=== PATIENT | male | born 1930 | race Caucasian/White ===

== ENCOUNTER 2017-01-10 14:16 | Inpatient (IN) | payer MEDICARE, OTHER ==
[~2017-01-10] VITALS: Ht 188 cm; Wt 97.7 kg
[2017-01-10] VITALS (9 sets, daily range): BP systolic 106–151; BP diastolic 49–81; PULSE 73–93; RESP 16–20; TEMP 98.1–102.6; O2SAT 92–98
[~2017-01-10 14:16] MED LIST: AMLO5TAB22 PO; CARV12.5 PO; CIPR500T4 PO; ENAL10TA7 PO; ENOX40P SQ; FERR324T4 PO; GLIP5 PO; ISOS30 PO; LORTA5 PO; POLY255S PO; PROS5TAB2 PO; ROSU40 PO; TAMS0.4C67 PO
[2017-01-10] MEDS ORDERED: ATOR1TAB18 PO (15:57)
--- NOTE | 2017-01-10 15:57 | PD ---
HPI Chief Complaint: Respiratory Symptoms Time Seen by Provider: 15:50 Travel History International Travel<30 days: No Contact w/Intl Traveler<30days: No Traveled to known affect area: No History of Present Illness HPI The patient is a 86-year-old male who presents emergency department for cough and cold symptoms. The patient states he developed a sore throat last night and since then his symptoms have progressed. He now complains of generalized weakness, wet but nonproductive cough, mild shortness of breath, and lethargy. The patient denies any nausea, vomiting, or abdominal pain. He does complain of bruising over the anterior aspect of his abdomen from a fall last week, but denies any abdominal pain. The patient denies any dysuria, frequency, or urgency. The patient has had chills at home, however, is unsure if he has had a fever. The patient was noted to have a temperature 102.6 in the emergency department. The patient does have a history of valve replacement , unsure which valve, performed last year at [facility] and currently takes Eliquis. The patient's primary physician is Dr. Puckett. [facility] Past Medical History Hx Anticoagulant Therapy: Yes Arthritis: No Asthma: No Autoimmune Disease: No Blood Disorders: No Heart Rhythm Problems: No Cancer: No Cardiovascular Problems: Yes (htn on meds x 2 [place]) High Cholesterol: No Chest Pain: Yes (CARDIAC CATH 2004) Congestive Heart Failure: No COPD: No Cerebrovascular Accident: Yes (cva x2) Diabetes: Yes (type 2) Patient Takes Glucophage: No Diminished Hearing: No Endocrine: Yes Gastrointestinal Disorders: Yes (CONSTIPATION) GERD: No Glaucoma: No Genitourinary: Yes (BPH) Hepatitis: No Hiatal Hernia: Yes Hypertension: Yes Immune Disorder: No Implanted Vascular Access Dvce: Yes Medical other: No Musculoskeletal: Yes (ARTHRITIS) Neurologic: Yes (STROKE HX) Psychiatric: No Reproductive: No Respiratory: No Immunizations Current: Yes Myocardial Infarction: Yes Thyroid Disease: Yes Ulcer: No Past Surgical History Abdominal Surgery: Yes (COLON RESECT (COLONOSCOPY PERF)) AICD: No Body Medical Devices: VENA CAVA FILTER Cardiac Surgery: Yes (VENA CAVA FILTER, VALVE REPLACEMENT ) Ear Surgery: Yes (LEFT MASTOIDECTOMY) Endocrine Surgery: No Eye Surgery: Yes (BRIANDA. CATARACT EXTRACT) Genitourinary Surgery: Yes (GREENLIGHT LASER PROSTATE) Gynecologic Surgery: No Joint Replacement: Yes (LEFT KNEE) Neurologic Surgery: Yes (LUMBAR DISCECTOMY X2) Oral Surgery: No Pacemaker: No Thoracic Surgery: No Other Surgery: Yes (LEFT CAROTID ENDARTERECTOMY) Social History Alcohol Use: No Tobacco Use: No Substance Use: No Allergies-Medications (Allergen,Severity, Reaction): Coded Allergies: Iodine (Verified Allergy, Unknown, 01/10/17) Sulfa (Verified Allergy, Unknown, UNKNOWN, 01/10/17) Reported Meds & Prescriptions Reported Meds & Active Scripts Active Reported Tamsulosin (Tamsulosin HCl) 0.4 Mg Cap 0.4 Mg PO HS Metoprolol Tartrate 25 Mg Tab 25 Mg PO BID Isosorbide Mononitrate ER (Isosorbide Mononitrate) 30 Mg Yvonne 30 Mg PO DAILY Hydralazine (Hydralazine HCl) 25 Mg Tab 25 Mg PO BID Take with a meal Glipizide 5 Mg Tab 5 Mg PO DAILY Take 30 minutes before a meal Finasteride 5 Mg Tab 5 Mg PO DAILY Do not crush. Eliquis (Apixaban) 5 Mg Tab 5 Mg PO BID Aspirin 81 Mg Tabdr 81 Mg PO DAILY Atorvastatin (Atorvastatin Calcium) 80 Mg Tab 80 Mg PO HS Review of Systems Except as stated in HPI: all other systems reviewed are Neg General / Constitutional: Positive: Fever, Chills HENT: Positive: Sore Throat, Congestion Cardiovascular: No: Chest Pain or Discomfort Respiratory: Positive: Cough, Shortness of Breath Gastrointestinal: No: Nausea, Vomiting, Abdominal Pain Genitourinary: No: Urgency, Frequency, Dysuria Musculoskeletal: Positive: Weakness, No: Myalgias, Arthralgias Skin: No Rash Physical Exam Narrative GENERAL: 86-year-old male who is hard of hearing, but in no acute respiratory distress. SKIN: Warm and dry. HEAD: Atraumatic. Normocephalic. EYES: Pupils equal and round. No scleral icterus. No injection or drainage. ENT: No nasal bleeding or discharge. Oropharynx reveals minimal erythema, no exudate. Hearing aids noted. Upper dentures noted. NECK: Trachea midline. No JVD. CARDIOVASCULAR: Regular rate and rhythm. No murmur appreciated. RESPIRATORY: No accessory muscle use. Rhonchi in the left base noted. GASTROINTESTINAL: Abdomen soft, old appearing bruising over the anterior left aspect of the abdomen, but no rebound tenderness, guarding, or rigidity. MUSCULOSKELETAL: No obvious deformities. No clubbing. No cyanosis. Trace pitting edema bilaterally. Back: No CVA tenderness. NEUROLOGICAL: Awake and alert. No obvious cranial nerve deficits. Motor grossly within normal limits. Normal speech. PSYCHIATRIC: Appropriate mood and affect; insight and judgment normal. Data Data Last Documented VS Vital Signs Date Time Temp Pulse Resp B/P Pulse Ox O2 Delivery O2 Flow Rate FiO2 01/10/17 18:28 96 21 01/10/17 17:08 99.7 73 18 149/53 Room Air Orders Electrocardiogram (01/10/17 15:50) Complete Blood Count With Diff (01/10/17 15:50) Comprehensive Metabolic Panel (01/10/17 15:50) Prothrombin Time / Inr (Pt) (01/10/17 15:50) Act Partial Throm Time (Ptt) (01/10/17 15:50) Lactic Acid Sepsis Protocol (01/10/17 15:50) Magnesium (Mg) (01/10/17 15:50) Urinalysis - C+S If Indicated (01/10/17 15:50) Influenzae A/B Antigen (01/10/17 15:50) Blood Culture (01/10/17 15:50) Chest, Single Ap (01/10/17 15:50) Blood Glucose (01/10/17 15:50) Ecg Monitoring (01/10/17 15:50) Iv Access Insert/Monitor (01/10/17 15:50) Oximetry (01/10/17 15:50) Oxygen Administration (01/10/17 15:50) Acetaminophen (Tylenol) (01/10/17 16:00) Sodium Chlorid 0.9% 500 Ml Inj (Ns 500 M (01/10/17 16:00) B-Type Natriuretic Peptide (01/10/17 15:50) Ct Abd/Pel W/O Iv Contrast (01/10/17 ) Levofloxacin 500 Mg Premix Inj (Levaquin (01/10/17 18:30) Albuterol-Ipratropium Neb (Duoneb Neb) (01/10/17 18:30) Labs Laboratory Tests Test 01/10/17 13:45 White Blood Count 11.1 TH/MM3 Red Blood Count 4.35 MIL/MM3 Hemoglobin 12.5 GM/DL Hematocrit 38.5 % Mean Corpuscular Volume 88.5 FL Mean Corpuscular Hemoglobin 28.8 PG Mean Corpuscular Hemoglobin 32.5 % Concent Red Cell Distribution Width 16.5 % Platelet Count 139 TH/MM3 Mean Platelet Volume 8.1 FL Neutrophils (%) (Auto) 83.1 % Lymphocytes (%) (Auto) 8.5 % Monocytes (%) (Auto) 8.1 % Eosinophils (%) (Auto) 0.1 % Basophils (%) (Auto) 0.2 % Neutrophils # (Auto) 9.3 TH/MM3 Lymphocytes # (Auto) 0.9 TH/MM3 Monocytes # (Auto) 0.9 TH/MM3 Eosinophils # (Auto) 0.0 TH/MM3 Basophils # (Auto) 0.0 TH/MM3 CBC Comment DIFF FINAL Differential Comment Prothrombin Time 12.0 SEC Prothromb Time International 1.1 RATIO Ratio Activated Partial 27.1 SEC Thromboplast Time Urine Collection Type CATH Urine Color YELLOW Urine Turbidity CLEAR Urine pH 6.0 Urine Specific [place] 1.016 Urine Protein 100 mg/dL Urine Glucose (UA) 100 mg/dL Urine Ketones NEG mg/dL Urine Occult Blood NEG Urine Nitrite NEG Urine Bilirubin NEG Urine Leukocyte Esterase NEG Urine Squamous Epithelial 0-5 /hpf Cells Microscopic Urinalysis Comment CULT NOT INDICATED Sodium Level 142 MEQ/L Potassium Level 4.0 MEQ/L Chloride Level 107 MEQ/L Carbon Dioxide Level 25.1 MEQ/L Anion Gap 10 MEQ/L Blood Urea Nitrogen 33 MG/DL Creatinine 1.70 MG/DL Estimat Glomerular Filtration 38 ML/MIN Rate Random Glucose 108 MG/DL Lactic Acid Level 1.6 mmol/L Calcium Level 8.9 MG/DL Magnesium Level 1.8 MG/DL Total Bilirubin 0.7 MG/DL Aspartate Amino Transf 24 U/L (AST/SGOT) Alanine Aminotransferase 31 U/L (ALT/SGPT) Alkaline Phosphatase 60 U/L B-Type Natriuretic Peptide 518 PG/ML Total Protein 7.4 GM/DL Albumin 3.8 GM/DL MDM Medical Decision Making Medical Screen Exam Complete: Yes Emergency Medical Condition: Yes Medical Record Reviewed: Yes Interpretation(s) Last Impressions Chest X-Ray 01/10/17 1550 Signed Impressions: Service Date/Time: Tuesday, January 10, 2017 16:19 - CONCLUSION: 1. Mild basilar airspace disease most characteristic of atelectasis. No focal dense consolidation. Elevated right hemidiaphragm similar to 2013. Cardiomegaly. Manuel Gomez MD Date/Time Procedure Status Source Growth 01/10/17 13:45 Aerobic Blood Culture Received Blood Peripheral Pending 01/10/17 13:45 Anaerobic Blood Culture Received Blood Peripheral Pending 01/10/17 13:45 Influenza Types A,B Antigen (CLIFF) - Final Complete Nasal Aspirate NEGATIVE FOR FLU A AND B ANTIGEN.... 01/10/17 14:02 Aerobic Blood Culture Received Blood Peripheral Pending 01/10/17 14:02 Anaerobic Blood Culture Received Blood Peripheral Pending Laboratory Tests Test 01/10/17 13:45 White Blood Count 11.1 TH/MM3 Red Blood Count 4.35 MIL/MM3 Hemoglobin 12.5 GM/DL Hematocrit 38.5 % Mean Corpuscular Volume 88.5 FL Mean Corpuscular Hemoglobin 28.8 PG Mean Corpuscular Hemoglobin 32.5 % Concent Red Cell Distribution Width 16.5 % Platelet Count 139 TH/MM3 Mean Platelet Volume 8.1 FL Neutrophils (%) (Auto) 83.1 % Lymphocytes (%) (Auto) 8.5 % Monocytes (%) (Auto) 8.1 % Eosinophils (%) (Auto) 0.1 % Basophils (%) (Auto) 0.2 % Neutrophils # (Auto) 9.3 TH/MM3 Lymphocytes # (Auto) 0.9 TH/MM3 Monocytes # (Auto) 0.9 TH/MM3 Eosinophils # (Auto) 0.0 TH/MM3 Basophils # (Auto) 0.0 TH/MM3 CBC Comment DIFF FINAL Differential Comment Prothrombin Time 12.0 SEC Prothromb Time International 1.1 RATIO Ratio Activated Partial 27.1 SEC Thromboplast Time Urine Collection Type CATH Urine Color YELLOW Urine Turbidity CLEAR Urine pH 6.0 Urine Specific [place] 1.016 Urine Protein 100 mg/dL Urine Glucose (UA) 100 mg/dL Urine Ketones NEG mg/dL Urine Occult Blood NEG Urine Nitrite NEG Urine Bilirubin NEG Urine Leukocyte Esterase NEG Urine Squamous Epithelial 0-5 /hpf Cells Microscopic Urinalysis Comment CULT NOT INDICATED Sodium Level 142 MEQ/L Potassium Level 4.0 MEQ/L Chloride Level 107 MEQ/L Carbon Dioxide Level 25.1 MEQ/L Anion Gap 10 MEQ/L Blood Urea Nitrogen 33 MG/DL Creatinine 1.70 MG/DL Estimat Glomerular Filtration 38 ML/MIN Rate Random Glucose 108 MG/DL Lactic Acid Level 1.6 mmol/L Calcium Level 8.9 MG/DL Magnesium Level 1.8 MG/DL Total Bilirubin 0.7 MG/DL Aspartate Amino Transf 24 U/L (AST/SGOT) Alanine Aminotransferase 31 U/L (ALT/SGPT) Alkaline Phosphatase 60 U/L B-Type Natriuretic Peptide 518 PG/ML Total Protein 7.4 GM/DL Albumin 3.8 GM/DL Last Impressions Chest X-Ray 01/10/17 1550 Signed Impressions: Service Date/Time: Tuesday, January 10, 2017 16:19 - CONCLUSION: 1. Mild basilar airspace disease most characteristic of atelectasis. No focal dense consolidation. Elevated right hemidiaphragm similar to 2013. Cardiomegaly. Manuel Gomez MD Abdomen/Pelvis CT 01/10/17 0000 Signed Impressions: Service Date/Time: Tuesday, January 10, 2017 16:50 - CONCLUSION: 1. No acute traumatic injury identified within the abdomen and pelvis. Previous ventral hernia repair and stent placement in the ascending aorta. 2. Bruising in the anterior abdominal wall. 3. Patchy basilar airspace disease in the lungs. Manuel Gomez MD Differential Diagnosis Differential diagnosis includes sepsis, pneumonia, influenza, viral syndrome, pyelonephritis, complicated UTI, acalculous cholecystitis. Narrative Course IV was established, labs are drawn and sent, and the patient was placed on cardiac telemetry monitoring and continuous pulse oximetry monitoring. EKG was ordered and interpreted. Chest x-ray was ordered. Lactic acid blood culture were sent to lab. The patient was administered IV fluids. The patient was also administered Tylenol 650 mg orally for an oral temperature of 102.6. The patient's creatinine is 1.7, however, when labs are compared, appears at baseline. Lactic acid is normal 1.6. BNP is mildly elevated at 518, however, patient does have chronic renal failure. Chest x-ray reveals atelectasis but no acute infiltrate. UA is negative for infection. Influenza screen is negative. The patient's temperature came down to 99.7 [address] was administered. [address] of the abdomen and pelvis was ordered to evaluate for possible underlying abscess and/or acute cholecystitis. Patient's white count is minimally elevated 11.1. CT reveals bibasilar patchy densities, may be early pneumonia. Patient's oxygen level was 92% on room air with mildly elevated white count a normal creatinine. As the patient is 86 with bibasilar pneumonia and hypoxia, patient will be admitted. [facility]. The patient was administered Levaquin 500 milligrams intravenously and duo nebs. I do discussion with the patient and family at bedside who are comfortable with this plan of care and disposition. Physician Communication Physician Communication [facility] were paged for admission. I discussed the patient Dr. Levi who agrees with admission. Diagnosis Primary Impression: Pneumonia Qualified Code: J18.9 - Pneumonia of both lower lobes due to infectious organism Admitting Information Admitting Physician Requests: Admit Condition: Stable Jeremiah Clemons MD Jan 10, 2017 15:57
[2017-01-10] MEDS ORDERED: GLIP5TAB8 PO (15:58)
[2017-01-10] MEDS ORDERED: ISOS30TA3 PO (15:58)
[2017-01-10] MEDS ORDERED: HYDR25TA35 PO (15:58)
[2017-01-10] MEDS ORDERED: TAMS0.4C4 PO (15:58)
[2017-01-10] MEDS ORDERED: APIX5TAB PO (15:58)
[2017-01-10] MEDS ORDERED: METO25TA3 PO (15:58)
[2017-01-10] MEDS ORDERED: ASPI1TAB69 PO (15:58)
[2017-01-10] MEDS ORDERED: FINA5TAB2 PO (15:58)
[2017-01-10] MEDS ORDERED: ACETAMINOPHEN 325 MG TAB PO ONE (16:00)
[2017-01-10] MEDS ORDERED: SODIUM CHLORID 0.9% 500 ML INJ 500 ML IV ONE (16:00)
[2017-01-10 16:19] LABS: AUTOMATED NEUTROPHIL # 9.3 TH/MM3 (1.8-7.7); BASOPHIL % 0.2 % (0.0-2.0); EOSINOPHIL % 0.1 % (0.0-4.0); HEMATOCRIT 38.5 % (39.0-51.0); LYMPH % 8.5 % (9.0-44.0); LYMPHOCYTE # 0.9 TH/MM3 (1.0-4.8); MEAN CELL VOLUME 88.5 FL (80.0-100.0); MEAN CORPUSCULAR HEMOGLOBIN 28.8 PG (27.0-34.0); MEAN CORPUSCULAR HGB CONC 32.5 % (32.0-36.0); MONO % 8.1 % (0.0-8.0); NEUT % 83.1 % (16.0-70.0); PLATELET COUNT 139 TH/MM3 (150-450); RED BLOOD COUNT 4.35 MIL/MM3 (4.50-5.90); RED CELL DISTRIBUTION WIDTH 16.5 % (11.6-17.2); WHITE BLOOD COUNT 11.1 TH/MM3 (4.0-11.0)
[2017-01-10 16:22] LABS: HEMO FLAGS DIFF FINAL
[2017-01-10 16:23] LABS: BLOOD, URINE NEG (NEG); CHLORIDE 107 MEQ/L (98-107); GLUCOSE,URINE 100 mg/dL (NEG); KETONE, URINE NEG (NEG); NITRITE,URINE NEG (NEG); SODIUM (NA) 142 MEQ/L (136-145)
[2017-01-10 16:25] LABS: METHOD OF COLLECTION CATH; URINE COLOR YELLOW (YELLW/STRAW)
[2017-01-10 16:27] LABS: ANION GAP 10 MEQ/L (5-15); APTT (PATIENT) 27.1 SEC (24.3-30.1); BICARBONATE 25.1 MEQ/L (21.0-32.0); BLOOD UREA NITROGEN 33 MG/DL (7-18); INTERNATIONAL NORMALIZED RATIO 1.1 RATIO; MAGNESIUM 1.8 MG/DL (1.5-2.5)
[2017-01-10 16:30] LABS: ALT (GPT) 31 U/L (12-78); AST (GOT) 24 U/L (15-37); GLOMERULAR FILTRATION RATE 38 ML/MIN (>89)
[2017-01-10 16:31] LABS: COMMENT (UR) CULT NOT INDICATED; CULTURE IF INDICATED CULT NOT INDICATED; SQUAMOUS EPITHELIAL CELL URINE 0-5 /hpf (0-5)
[2017-01-10 16:32] LABS: TOTAL BILIRUBIN ADULT 0.7 MG/DL (0.2-1.0)
[2017-01-10 16:33] LABS: ALKALINE PHOSPHATASE 60 U/L (45-117)
--- NOTE | 2017-01-10 17:00 | RADHPO ---
EXAM DATE/TIME: 01/10/2017 16:19 [facility] COMPARISON: CHEST PA & LAT, January 23, 2013, 10:21. INDICATIONS : Fever. Cough. MEDICAL HISTORY : None. SURGICAL HISTORY : None. ENCOUNTER: Initial ACUITY: 3 days PAIN SCORE: 6/10 LOCATION: Bilateral chest FINDINGS: A single view of the chest demonstrates mild basilar airspace disease. No effusion or pneumothorax. C ardiomegaly with stent overlying the heart, probably in the proximal aorta. CONCLUSION: 1. Mild basilar airspace disease most characteristic of atelectasis. No focal dense consolidation. El evated right hemidiaphragm similar to 2013. Cardiomegaly. Manuel Gomez MD on January 10, 2017 at 16:56 Board Certified Radiologist. This report was verified electronically.
--- NOTE | 2017-01-10 18:15 | RADHPO ---
EXAM DATE/TIME: 01/10/2017 16:50 [facility] COMPARISON: No previous studies available for comparison. INDICATIONS : Anterior abdominal bruising status post fall one week ago. ORAL CONTRAST: No oral contrast ingested. RADIATION DOSE: 17.19 CTDIvol (mGy) MEDICAL HISTORY : Stroke. Hypertension. Diabetes mellitus type 2. SURGICAL HISTORY : IVC Filter placement. Colon resection.lumbar discectomy ENCOUNTER: Initial ACUITY: 1 day PAIN SCALE: 0/10 LOCATION: Bilateral abdomen TECHNIQUE: Volumetric scanning of the abdomen and pelvis was performed. Using automated exposure control and ad justment of the mA and/or kV according to patient size, radiation dose was kept as low as reasonably achievable to obtain optimal diagnostic quality images. FINDINGS: There is patchy basilar air space disease in the lungs. No acute findings in the liver, spleen, adrenals, kidneys or pancreas. Calcified gallstone in gallbla dder. There is previous ventral hernia repair with mesh along the anterior abdominal wall. There is some mi ld bruising of the left anterior abdominal wall. Colonic diverticula noted without diverticulitis. No acute bony abnormalities. CONCLUSION: 1. No acute traumatic injury identified within the abdomen and pelvis. Previous ventral hernia repair and stent placement in the ascending aorta. 2. Bruising in the anterior abdominal wall. 3. Patchy basilar airspace disease in the lungs. Manuel Gomez MD on January 10, 2017 at 18:09 Board Certified Radiologist. This report was verified electronically.
[2017-01-10] MEDS ORDERED: LEVOFLOXACIN 500 MG PREMIX INJ 100 ML IV ONE (18:30)
[2017-01-10] MEDS ORDERED: RESP: ALBUTEROL 2.5 MG/IPRATROPIUM 0.5 MG NEB (SCH) NEB ONE (18:30)
[2017-01-10] MEDS ORDERED: ONDANSETRON HCL 4 MG/2 ML VIAL IV PRN (19:00)
[2017-01-10] MEDS ORDERED: ACETAMINOPHEN 325 MG TAB PO PRN (19:00)
[2017-01-10] MEDS ORDERED: SODIUM CHLORIDE 0.9% FLUSH 5 ML FLUSH IVF PRN (19:00)
[2017-01-10] MEDS ORDERED: ACETAMINOPHEN 650 MG SUPP PR PRN (19:00)
[2017-01-10] MEDS: RESP: ALBUTEROL 2.5 MG/IPRATROPIUM 0.5 MG NEB (SCH) NEB (20:31)
[2017-01-10] MEDS: SODIUM CHLORIDE 0.9% FLUSH 5 ML FLUSH IVF SCH (20:58)
[2017-01-11] VITALS: BP 131/62; PULSE 77; RESP 20; TEMP 99.1; O2SAT 97
[2017-01-11 06:48] LABS: POTASSIUM 3.9 MEQ/L (3.5-5.1)
[2017-01-11 06:50] LABS: AUTOMATED NEUTROPHIL # 7.4 TH/MM3 (1.8-7.7); BASOPHIL % 0.3 % (0.0-2.0); EOSINOPHIL % 0.2 % (0.0-4.0); HEMATOCRIT 30.8 % (39.0-51.0); HEMO FLAGS DIFF FINAL; LYMPH % 13.2 % (9.0-44.0); LYMPHOCYTE # 1.3 TH/MM3 (1.0-4.8); MEAN CELL VOLUME 87.5 FL (80.0-100.0); MEAN CORPUSCULAR HEMOGLOBIN 28.7 PG (27.0-34.0); MEAN CORPUSCULAR HGB CONC 32.8 % (32.0-36.0); MONO % 9.2 % (0.0-8.0); NEUT % 77.1 % (16.0-70.0); PLATELET COUNT 103 TH/MM3 (150-450); RED BLOOD COUNT 3.52 MIL/MM3 (4.50-5.90); RED CELL DISTRIBUTION WIDTH 16.4 % (11.6-17.2); WHITE BLOOD COUNT 9.6 TH/MM3 (4.0-11.0)
[2017-01-11 07:09] LABS: BICARBONATE 23.6 MEQ/L (21.0-32.0)
[2017-01-11] MEDS: RESP: ALBUTEROL 2.5 MG/IPRATROPIUM 0.5 MG NEB (SCH) NEB ×2 (07:26→11:15)
[2017-01-11 07:27] VITALS: O2SAT 93
[2017-01-11 08:00] VITALS: BP 138/77; PULSE 102; RESP 20; TEMP 98.9; O2SAT 95
[2017-01-11] MEDS ORDERED: GLUCAGON 1 MG/ML VIAL OTHER PRN (08:30)
[2017-01-11] MEDS ORDERED: DEXTROSE 50% IN WATER 50 ML VIAL(D50) IV PUSH PRN (08:30)
[2017-01-11] MEDS ORDERED: FINASTERIDE 5 MG TAB PO SCH (09:00)
[2017-01-11] MEDS ORDERED: hydrALAZINE HCL 25 MG TAB PO SCH (09:00)
[2017-01-11] MEDS ORDERED: ISOSORBIDE MONONITRATE 30 MG TAB PO SCH (09:00)
[2017-01-11] MEDS ORDERED: METOPROLOL TARTRATE 25 MG TAB PO SCH (09:00)
[2017-01-11] MEDS ORDERED: glipiZIDE 5 MG TAB PO SCH (09:00)
[2017-01-11] MEDS ORDERED: APIXABAN 5 MG TABLET PO SCH (09:00)
[2017-01-11] MEDS ORDERED: ASPIRIN EC 81 MG TABEC PO SCH (09:00)
[2017-01-11] MEDS: SODIUM CHLORIDE 0.9% FLUSH 5 ML FLUSH IVF SCH (09:04)
--- NOTE | 2017-01-11 10:20 | HHI.HP ---
HPI Service [facility] Primary Care Physician Pablo Brian MD Admission Diagnosis bibasilar pneumonia, hypoxia, febrile illness, CKD Diagnoses: Travel History International Travel<30 Days: No Contact w/Intl Traveler <30 Da: No Traveled to Known Affected Are: No History of Present Illness This is a pleasant 86-year-old male who presented to the ER last night complaining of a four-day history of sore throat associated with nonproductive cough, mild dyspnea. He also complaining of generalized weakness last night. The patient was noted to have a fever of 102.6 in the emergency department. The patient also noted that he had fallen about a week ago and had some bruising on his abdomen. Abdominal CT scan in the emergency department did not reveal any acute abnormalities however he did have bibasilar consolidations versus atelectasis seen on chest x-ray an abdominal CT scan. Thus the emergency department physician requested that we observe the patient for community-acquired pneumonia. This morning the patient states that his sore throat has resolved. He still has a dry cough but it is improving. He has had no further fevers. He denies dyspnea. He states he normally ambulates with a cane. He would like to go home today. He states his children are in town for the races and he would like to visit with them while they are here. Review of Systems Except as stated in HPI: all other systems reviewed are Neg Past Family Social History Past Medical History Hypertension Coronary artery disease status post myocardial infarction and bypass surgery 2 BPH status post TURP back to mi Peripheral vascular disease status post carotid endarterectomy Osteoarthritis status post knee replacement Type 2 diabetes Chronic kidney disease History of valve replacement in the past year the patient is unsure which valve History of CVA 2 Chronic hyponatremia Reported Medications Allergies Coded Allergies Type Severity Reaction Last Updated Verified Iodine Allergy Unknown 01/10/17 Yes Sulfa Allergy Unknown UNKNOWN 01/10/17 Yes Active Scripts Medications Dose Route/Sig Days Date Category Dose Instructions Tamsulosin (Tamsulosin HCl) 0.4 Mg Cap 0.4 Mg PO HS 01/10/17 Reported Metoprolol Tartrate 25 Mg Tab 25 Mg PO BID 2/19/17 Reported Isosorbide Mononitrate ER (Isosorbide Mononitrate) 30 Mg Yvonne 30 Mg PO DAILY 01/10/17 Reported Hydralazine (Hydralazine HCl) 25 Mg Tab 25 Mg PO BID 01/10/17 Reported Take with a meal Glipizide 5 Mg Tab 5 Mg PO DAILY 01/10/17 Reported Take 30 minutes before a meal Finasteride 5 Mg Tab 5 Mg PO DAILY 01/10/17 Reported Do not crush. Eliquis (Apixaban) 5 Mg Tab 5 Mg PO BID 01/10/17 Reported Aspirin 81 Mg Tabdr 81 Mg PO DAILY 01/10/17 Reported Atorvastatin (Atorvastatin Calcium) 80 Mg Tab 80 Mg PO HS 01/10/17 Reported Allergies: Coded Allergies: Iodine (Verified Allergy, Unknown, 01/10/17) Sulfa (Verified Allergy, Unknown, UNKNOWN, 01/10/17) Family History Reviewed and noncontributory Social History History of tobaccoism quit 40 years ago. Physical Exam Vital Signs Vital Signs Date Time Temp Pulse Resp B/P Pulse Ox O2 Delivery O2 Flow Rate FiO2 01/11/17 08:00 98.9 102 20 138/77 95 01/11/17 07:27 93 21 01/11/17 00:00 99.1 77 20 131/62 97 01/10/17 21:00 98.1 93 20 123/62 94 01/10/17 20:30 97 21 01/10/17 19:32 18 97 Room Air 01/10/17 19:32 98.1 92 18 112/68 97 Room Air 01/10/17 18:52 78 18 106/49 93 Room Air 01/10/17 18:28 96 21 01/10/17 17:08 99.7 73 18 149/53 92 Room Air 01/10/17 16:59 98 Room Air 01/10/17 15:53 98 Room Air 01/10/17 15:48 102.6 84 18 146/81 98 Room Air 01/10/17 14:29 99.8 78 16 151/61 94 Physical Exam GENERAL: Well-nourished, well-developed elderly male patient. SKIN: Warm and dry. HEAD: Normocephalic. EYES: No scleral icterus. No injection or drainage. NECK: Supple, trachea midline. No JVD or lymphadenopathy. CARDIOVASCULAR: Regular rate and rhythm without murmurs, gallops, or rubs. RESPIRATORY: Breath sounds equal and clear to auscultation bilaterally. No accessory muscle use on room air. GASTROINTESTINAL: Bowel sounds positive. Abdomen soft, non-tender, nondistended. EXTREMITIES: Trace pedal edema. NEUROLOGICAL: Awake, alert, and oriented x 3. Non-focal. Laboratory Laboratory Tests Test 01/10/17 01/11/17 13:45 05:35 White Blood Count 11.1 9.6 Red Blood Count 4.35 3.52 Hemoglobin 12.5 10.1 Hematocrit 38.5 30.8 Mean Corpuscular Volume 88.5 87.5 Mean Corpuscular Hemoglobin 28.8 28.7 Mean Corpuscular Hemoglobin 32.5 32.8 Concent Red Cell Distribution Width 16.5 16.4 Platelet Count 139 103 Mean Platelet Volume 8.1 7.8 Neutrophils (%) (Auto) 83.1 77.1 Lymphocytes (%) (Auto) 8.5 13.2 Monocytes (%) (Auto) 8.1 9.2 Eosinophils (%) (Auto) 0.1 0.2 Basophils (%) (Auto) 0.2 0.3 Neutrophils # (Auto) 9.3 7.4 Lymphocytes # (Auto) 0.9 1.3 Monocytes # (Auto) 0.9 0.9 Eosinophils # (Auto) 0.0 0.0 Basophils # (Auto) 0.0 0.0 CBC Comment DIFF FINAL DIFF FINAL Differential Comment Prothrombin Time 12.0 Prothromb Time International 1.1 Ratio Activated Partial 27.1 Thromboplast Time Urine Collection Type CATH Urine Color YELLOW Urine Turbidity CLEAR Urine pH 6.0 Urine Specific [place] 1.016 Urine Protein 100 Urine Glucose (UA) 100 Urine Ketones NEG Urine Occult Blood NEG Urine Nitrite NEG Urine Bilirubin NEG Urine Leukocyte Esterase NEG Urine Squamous Epithelial 0-5 Cells Microscopic Urinalysis Comment CULT NOT INDICATED Sodium Level 142 142 Potassium Level 4.0 3.9 Chloride Level 107 107 Carbon Dioxide Level 25.1 23.6 Anion Gap 10 11 Blood Urea Nitrogen 33 32 Creatinine 1.70 1.50 Estimat Glomerular Filtration 38 44 Rate Random Glucose 108 93 Lactic Acid Level 1.6 Calcium Level 8.9 8.0 Magnesium Level 1.8 Total Bilirubin 0.7 Aspartate Amino Transf 24 (AST/SGOT) Alanine Aminotransferase 31 (ALT/SGPT) Alkaline Phosphatase 60 B-Type Natriuretic Peptide 518 Total Protein 7.4 Albumin 3.8 Date/Time Procedure Status Source Growth 01/10/17 14:02 Aerobic Blood Culture Received Blood Peripheral Pending 01/10/17 14:02 Anaerobic Blood Culture Received Blood Peripheral Pending 01/10/17 13:45 Influenza Types A,B Antigen (CLIFF) - Final Complete Nasal Aspirate NEGATIVE FOR FLU A AND B ANTIGEN.... Result Diagram: 01/11/1753401/11/17534 Assessment and Plan Problem List: (1) Pneumonia ICD Code: J18.9 Status: Acute Assessment and Plan -Bibasilar community-acquired pneumonia versus atelectasis. Patient has had dry cough and did have one fever last night emergency department along with a mild leukocytosis. He has been observed overnight and started on Levaquin. He states that he is feeling much better this morning. No hypoxemia. We will obtain a physical therapy evaluation and if he is ambulating well he may be discharged home on oral Levaquin with follow-up with his PCP this week. His other chronic medical conditions below seems stable and he will continue on his home medications: Hypertension Coronary artery disease status post myocardial infarction and bypass surgery 2 BPH status post TURP back to mi Peripheral vascular disease status post carotid endarterectomy Osteoarthritis status post knee replacement Type 2 diabetes Chronic kidney disease History of valve replacement in the past year the patient is unsure which valve History of CVA 2 Chronic hyponatremia Problem Qualifiers (1) Pneumonia: Qualified Code: J18.9 - Pneumonia of both lower lobes due to infectious organism Theresa Levi MD Jan 11, 2017 10:20
[2017-01-11] MEDS ORDERED: LEVO500T3 PO (10:22)
[2017-01-11] MEDS ORDERED: INSULIN ASPART SUPPLEMENTAL SCALE SQ SCH (11:00)
--- NOTE | 2017-01-11 14:32 | EKG ---
Date Performed: 01/10/2017 Time Performed: 16:00:46 PTAGE: 86 years EKG: Sinus rhythm . Leftward axis Inferior infarct - age undetermined Lateral ST-T changes may be due to myocardial isc hemia Abnormal ECG PREVIOUS TRACING : 09/30/2015 08.58 DOCTOR: Teddy Raya Interpretating Date/Time 01/11/2017 14:28:37
[2017-01-11] MEDS ORDERED: LEVOFLOXACIN 500 MG PREMIX INJ 100 ML IV SCH (18:00)
[2017-01-11] MEDS ORDERED: ATORVASTATIN 40 MG TAB PO SCH (21:00)
[2017-01-11] MEDS ORDERED: TAMSULOSIN HCL 0.4 MG CAP PO SCH (21:00)
== END 2017-01-11 11:50 | disposition home or self-care (01) | DRG 194 ==
LOC: PHED 14:16 → PHEDA 18:44 → PH3A 20:56
PROVIDERS: ADMIT Family Medicine; ATTEND Family Medicine
DX: J18.9 Pneumonia, unspecified organism (principal); E87.1 Hypo-osmolality and hyponatremia; E11.22 Type 2 diabetes mellitus with diabetic chronic kidney disease; I73.9 Peripheral vascular disease, unspecified; R09.02 Hypoxemia; J02.9 Acute pharyngitis, unspecified; N18.9 Chronic kidney disease, unspecified; I25.2 Old myocardial infarction; I25.10 Atherosclerotic heart disease of native coronary artery without angina pectoris; N40.0 Benign prostatic hyperplasia without lower urinary tract symptoms; S30.1XXA Contusion of abdominal wall, initial encounter; Z96.659 Presence of unspecified artificial knee joint; W19.XXXA Unspecified fall, initial encounter; Z86.73 Personal history of transient ischemic attack (TIA), and cerebral infarction without residual deficits; Z87.891 Personal history of nicotine dependence; Z95.2 Presence of prosthetic heart valve; Z95.1 Presence of aortocoronary bypass graft; K59.00 Constipation, unspecified; K44.9 Diaphragmatic hernia without obstruction or gangrene; M19.90 Unspecified osteoarthritis, unspecified site; E07.9 Disorder of thyroid, unspecified; Z79.84 Long term (current) use of oral hypoglycemic drugs
CPT/HCPCS: 71010; 74176; 80048; 80053; 81001; 82948; 83605; 83735; 83880; 85025; 85610; 85730; 87040; 87804; 93005; 94640; 94664; 96361; 96374; J1956; J7040

== ENCOUNTER → 2017-02-08 | Outpatient (CLI) | payer MEDICARE, OTHER ==
[~2017-02-08] MED LIST changes: -AMLO5TAB22 PO; +APIX5TAB PO; +ASPI1TAB69 PO; +ASPI81CH CHEW; +ATOR1TAB18 PO; -CARV12.5 PO; -CIPR500T4 PO; -ENAL10TA7 PO; -ENOX40P SQ; -FERR324T4 PO; +FINA5TAB2 PO; -GLIP5 PO; +GLIP5TAB8 PO; +HYDR-3533 PO; +HYDR-3801 PO; +HYDR25TA35 PO; -ISOS30 PO; +ISOS30TA3 PO; +LEVO500T3 PO; -LORTA5 PO; +METO25TA3 PO; +NEXI40CA PO; -POLY255S PO; -PROS5TAB2 PO; -ROSU40 PO; +TAMS0.4C4 PO; -TAMS0.4C67 PO
[2017-02-08 10:49] LABS: HEMATOCRIT 33.5 % (39.0-51.0); MEAN CELL VOLUME 87.2 FL (80.0-100.0); MEAN CORPUSCULAR HEMOGLOBIN 29.7 PG (27.0-34.0); PLATELET COUNT 117 TH/MM3 (150-450); RED BLOOD COUNT 3.84 MIL/MM3 (4.50-5.90); RED CELL DISTRIBUTION WIDTH 17.2 % (11.6-17.2); REVIEW FLAG FINAL; WHITE BLOOD COUNT 5.1 TH/MM3 (4.0-11.0)
[2017-02-08 11:22] LABS: BICARBONATE 30.5 MEQ/L (21.0-32.0); POTASSIUM 5.2 MEQ/L (3.5-5.1)
== END ==
LOC: PLAB 08:44
DX: D69.6 Thrombocytopenia, unspecified (principal); D64.9 Anemia, unspecified; E11.65 Type 2 diabetes mellitus with hyperglycemia; N18.3 Chronic kidney disease, stage 3 (moderate); Z79.899 Other long term (current) drug therapy
CPT/HCPCS: 36415; 80048; 85027

== ENCOUNTER → 2017-03-26 | Outpatient (CLI) | payer MEDICARE, OTHER ==
[2017-03-26 13:18] LABS: ANION GAP 7 MEQ/L (5-15); AST (GOT) 24 U/L (15-37); BICARBONATE 26.6 MEQ/L (21.0-32.0); BLOOD UREA NITROGEN 32 MG/DL (7-18); CHLORIDE 109 MEQ/L (98-107); GLOMERULAR FILTRATION RATE 34 ML/MIN (>89); GLUCOSE,FASTING 95 MG/DL (74-99); HEMATOCRIT 36.2 % (39.0-51.0); MEAN CELL VOLUME 88.1 FL (80.0-100.0); MEAN CORPUSCULAR HEMOGLOBIN 29.1 PG (27.0-34.0); PLATELET COUNT 118 TH/MM3 (150-450); POTASSIUM 5.4 MEQ/L (3.5-5.1); RED BLOOD COUNT 4.12 MIL/MM3 (4.50-5.90); REVIEW FLAG FINAL; SODIUM (NA) 143 MEQ/L (136-145); WHITE BLOOD COUNT 5.4 TH/MM3 (4.0-11.0)
[2017-03-26 13:21] LABS: ALKALINE PHOSPHATASE 59 U/L (45-117); ALT (GPT) 36 U/L (12-78); CREATINE KINASE 119 U/L (39-308); HDL CHOLESTEROL 35.3 MG/DL (40.0-60.0); LDL CHOLESTEROL 42 MG/DL (0-99); TOTAL BILIRUBIN ADULT 0.4 MG/DL (0.2-1.0)
== END ==
LOC: PLAB 09:08
PROVIDERS: ATTEND Urology
DX: E78.00 Pure hypercholesterolemia, unspecified (principal); N18.3 Chronic kidney disease, stage 3 (moderate); D63.1 Anemia in chronic kidney disease; R97.20 Elevated prostate specific antigen [PSA]; N40.3 Nodular prostate with lower urinary tract symptoms; Z12.5 Encounter for screening for malignant neoplasm of prostate; Z79.899 Other long term (current) drug therapy
CPT/HCPCS: 36415; 80053; 80061; 82550; 84153; 85027

== ENCOUNTER 2017-05-17 09:47 | Emergency (ER) | payer MEDICARE, OTHER ==
[~2017-05-17] VITALS: Ht 188 cm; Wt 100.8 kg
[~2017-05-17 09:47] MED LIST changes: -ASPI81CH CHEW; -HYDR-3533 PO; -HYDR-3801 PO; -NEXI40CA PO
[2017-05-17 09:56] VITALS: BP 137/66; PULSE 62; RESP 18; TEMP 98.3; O2SAT 96
[2017-05-17] MEDS ORDERED: ASPI81CH CHEW (10:13)
[2017-05-17] MEDS ORDERED: HYDR-3801 PO (10:16)
[2017-05-17] MEDS ORDERED: NEXI40CA PO (10:16)
[2017-05-17] MEDS ORDERED: MORPHINE SULFATE 8 MG/ML INJ IV PUSH ONE (10:45)
[2017-05-17] MEDS ORDERED: SODIUM CHLORIDE 0.9% FLUSH 10 ML FLUSH IV FLUSH PRN (10:45)
[2017-05-17 11:05] LABS: AUTOMATED NEUTROPHIL # 5.3 TH/MM3 (1.8-7.7); BASOPHIL % 0.3 % (0.0-2.0); EOSINOPHIL # 0.1 TH/MM3 (0-0.4); HEMO FLAGS DIFF FINAL; LYMPH % 17.6 % (9.0-44.0); LYMPHOCYTE # 1.2 TH/MM3 (1.0-4.8); MEAN CELL VOLUME 89.8 FL (80.0-100.0); MEAN CORPUSCULAR HEMOGLOBIN 29.8 PG (27.0-34.0); MEAN CORPUSCULAR HGB CONC 33.2 % (32.0-36.0); NEUT % 74.1 % (16.0-70.0); PLATELET COUNT 133 TH/MM3 (150-450); RED BLOOD COUNT 4.01 MIL/MM3 (4.50-5.90); WHITE BLOOD COUNT 7.1 TH/MM3 (4.0-11.0)
[2017-05-17 11:06] LABS: POTASSIUM 4.4 MEQ/L (3.5-5.1)
[2017-05-17 11:10] LABS: BICARBONATE 27.4 MEQ/L (21.0-32.0)
[2017-05-17 11:12] LABS: APTT (PATIENT) 27.4 SEC (24.3-30.1); INTERNATIONAL NORMALIZED RATIO 1.1 RATIO; PROTHROMBIN TIME - PATIENT 11.7 SEC (9.8-11.6)
[2017-05-17 11:17] VITALS: RESP 18; O2SAT 98
--- NOTE | 2017-05-17 11:24 | PD ---
HPI Chief Complaint: Pain: Acute or Chronic Time Seen by Provider: 10:09 Travel History International Travel<30 days: No Contact w/Intl Traveler<30days: No Traveled to known affect area: No History of Present Illness HPI Our patient is a 86 y.o. M presenting with painful, bruised lesions on his forearms and left lower back sustained after falling last . He says he was getting up to use the bathroom at 4 am when he lost his balance, fell, and hit his left side on a coffee table. He denies hitting his head, losing consciousness, tongue lesions and incontinence. He also reports falling at a car dealership last Wednesday. Her describes the pain as sharp, non-radiating 5/10 pain that only occurs with movement. He says he has tried 2 doses of Tylenol for the pain. He denies headache, nausea, vomiting, chest pain, dyspnea, weakness and changes in vision. He is still able to ambulate, inconsistently uses his cane. Patient is currently on [place]. [facility] Past Medical History Narrative Medical Reviewed from nurse's note Hx Anticoagulant Therapy: Yes Arthritis: No Asthma: No Autoimmune Disease: No Blood Disorders: No Heart Rhythm Problems: No Cancer: Yes (SKIN, ON BACK) Cardiovascular Problems: Yes High Cholesterol: No Chest Pain: Yes (CARDIAC CATH 2004) Congestive Heart Failure: Yes (MAYBE, PT NOT OFFICIALLY TOLD) COPD: No Cerebrovascular Accident: Yes (cva x2) Diabetes: Yes Patient Takes Glucophage: No Diminished Hearing: No Endocrine: Yes Gastrointestinal Disorders: Yes (CONSTIPATION) GERD: No Glaucoma: No Genitourinary: Yes (BPH) Hepatitis: No Hiatal Hernia: Yes Hypertension: Yes Immune Disorder: No Implanted Vascular Access Dvce: Yes Musculoskeletal: Yes (ARTHRITIS) Neurologic: Yes (STROKE HX) Psychiatric: No Reproductive: No Respiratory: Yes (DEVIATED SEPTUM) Immunizations Current: Yes Myocardial Infarction: Yes Thyroid Disease: Yes Ulcer: No Tetanus Vaccination: < 5 Years Influenza Vaccination: Yes Past Surgical History Abdominal Surgery: Yes (COLON RESECT (COLONOSCOPY PERF)) AICD: No Body Medical Devices: VENA CAVA FILTER, CARDIAC VALVE Cardiac Surgery: Yes (VENA CAVA FILTER, VALVE REPLACEMENT ) Ear Surgery: Yes (LEFT MASTOIDECTOMY) Endocrine Surgery: No Eye Surgery: Yes (BRIANDA. CATARACT EXTRACT) Genitourinary Surgery: Yes (GREENLIGHT LASER PROSTATE) Gynecologic Surgery: No Joint Replacement: Yes (LEFT KNEE, RIGHT KNEE) Neurologic Surgery: Yes (LUMBAR DISCECTOMY X2) Oral Surgery: No Pacemaker: No Thoracic Surgery: No Other Surgery: Yes (LEFT CAROTID ENDARTERECTOMY) Social History Alcohol Use: No Tobacco Use: No Substance Use: No Allergies-Medications (Allergen,Severity, Reaction): Coded Allergies: Iodine (Verified Allergy, Unknown, 05/17/17) Sulfa (Verified Allergy, Unknown, UNKNOWN, 05/17/17) Reported Meds & Prescriptions Reported Meds & Active Scripts Active Lortab (Hydrocodone-Acetaminophen) 5-325 Mg Tab 1-2 Tab PO Q6H PRN Reported Nexium (Esomeprazole DR) 40 Mg Capdr 40 Mg PO DAILY Hydralazine (Hydralazine HCl) 100 Mg Tab 75 Mg PO BID Take with meals Aspirin 81 Mg Chew 81 Mg CHEW ONCE Metoprolol Tartrate 25 Mg Tab 25 Mg PO BID Isosorbide Mononitrate ER (Isosorbide Mononitrate) 30 Mg Yvonne 30 Mg PO DAILY Glipizide 5 Mg Tab 5 Mg PO DAILY Take 30 minutes before a meal Eliquis (Apixaban) 5 Mg Tab 5 Mg PO BID Atorvastatin (Atorvastatin Calcium) 80 Mg Tab 80 Mg PO HS Review of Systems Except as stated in HPI: all other systems reviewed are Neg Physical Exam Narrative GENERAL: Alert and oriented, sitting in his bed comfortably. Winces in pain with movement. Speaks in full sentences. SKIN: Warm and dry. HEAD: Atraumatic. Normocephalic. EYES: Pupils equal and round. No scleral icterus. No injection or drainage. ENT: No nasal bleeding or discharge. Mucous membranes pink and moist. NECK: Trachea midline. No JVD. CARDIOVASCULAR: Regular rate and rhythm. RESPIRATORY: No accessory muscle use. Clear to auscultation. Breath sounds equal bilaterally. GASTROINTESTINAL: Abdomen soft, non-tender, nondistended. Hepatic and splenic margins not palpable. MUSCULOSKELETAL: Extremities without clubbing, cyanosis, or edema. Large, mildly tender violaceous contusions noted on the dorsal aspect of the forearm and left lower back. No induration, warmth, odors or pus. NEUROLOGICAL: Awake and alert. No obvious cranial nerve deficits. Motor grossly within normal limits. Five out of 5 muscle strength in the arms and legs. Normal speech. PSYCHIATRIC: Appropriate mood and affect; insight and judgment normal. Data Data Last Documented VS Vital Signs Date Time Temp Pulse Resp B/P Pulse Ox O2 Delivery O2 Flow Rate FiO2 05/17/17 12:23 58 18 150/58 95 Room Air 05/17/17 09:56 98.3 Orders Basic Metabolic Panel (Bmp) (05/17/17 10:35) Complete Blood Count With Diff (05/17/17 10:35) Prothrombin Time / Inr (Pt) (05/17/17 10:35) Act Partial Throm Time (Ptt) (05/17/17 10:35) Urinalysis - C+S If Indicated (05/17/17 10:35) Iv Access Insert/Monitor (05/17/17 10:35) Ecg Monitoring (05/17/17 10:35) Oximetry (05/17/17 10:35) Sodium Chloride 0.9% Flush (Ns Flush) (05/17/17 10:45) Morphine Inj (Morphine Inj) (05/17/17 10:45) Ct Abd/Pel W/O Iv Contrast (05/17/17 10:35) Labs Laboratory Tests Test 05/17/17 10:50 White Blood Count 7.1 TH/MM3 Red Blood Count 4.01 MIL/MM3 Hemoglobin 11.9 GM/DL Hematocrit 36.0 % Mean Corpuscular Volume 89.8 FL Mean Corpuscular Hemoglobin 29.8 PG Mean Corpuscular Hemoglobin 33.2 % Concent Red Cell Distribution Width 16.0 % Platelet Count 133 TH/MM3 Mean Platelet Volume 7.5 FL Neutrophils (%) (Auto) 74.1 % Lymphocytes (%) (Auto) 17.6 % Monocytes (%) (Auto) 7.0 % Eosinophils (%) (Auto) 1.0 % Basophils (%) (Auto) 0.3 % Neutrophils # (Auto) 5.3 TH/MM3 Lymphocytes # (Auto) 1.2 TH/MM3 Monocytes # (Auto) 0.5 TH/MM3 Eosinophils # (Auto) 0.1 TH/MM3 Basophils # (Auto) 0.0 TH/MM3 CBC Comment DIFF FINAL Differential Comment Prothrombin Time 11.7 SEC Prothromb Time International 1.1 RATIO Ratio Activated Partial 27.4 SEC Thromboplast Time Sodium Level 139 MEQ/L Potassium Level 4.4 MEQ/L Chloride Level 103 MEQ/L Carbon Dioxide Level 27.4 MEQ/L Anion Gap 9 MEQ/L Blood Urea Nitrogen 34 MG/DL Creatinine 1.70 MG/DL Estimat Glomerular Filtration 38 ML/MIN Rate Random Glucose 212 MG/DL Calcium Level 8.8 MG/DL MDM Medical Decision Making Medical Screen Exam Complete: Yes Emergency Medical Condition: Yes Medical Record Reviewed: Yes Differential Diagnosis Musculoskeletal strain, Retroperitoneal bleed, subcapsular renal hematoma Narrative Course This is a 86 y.o. M with a history of 2 falls within the last week presenting with contusions on his forearm and left lower back that are painful with movement. Patient agrees to undergo lab testing and CT scan to further investigate his fall. Instructed patient to use his cane more, rise from a seated position more slowly and exercise to prevent future falls. CBC & BMP Diagram 05/17/17 10:50 Last 24 hours Impressions Abdomen/Pelvis CT 05/17/17 1035 Signed Impressions: Service Date/Time: Wednesday, May 17, 2017 10:57 - CONCLUSION: 1. No acute abnormality in the abdomen or pelvis. Specifically, no evidence for retroperitoneal hematoma as questioned. 2. Nonspecific marked enlargement of the prostate gland. Clinical correlation is recommended. 3. Ancillary findings include bilateral renal cysts, cholelithiasis, stable IVC filter, sigmoid diverticulosis, ventral hernia repair, and fat containing left inguinal hernia. Christopher Castillo MD CT findings d/w patient who agrees to follow up with PMD and urologist. Diagnosis Primary Impression: Back pain Qualified Code: M54.5 - Left-sided low back pain without sciatica, unspecified chronicity Additional Impression: Prostate hypertrophy Referrals: Primary Care Physician 2 days Urologist call for appointment Additional Instructions: You have a choice when it comes to health care, and we are glad that you chose [facility]. Hopefully, we have met your expectations on today's visit. You are welcome to return to [facility] at any time, as we are committed to meeting the health care needs of our community. Med/Other Pt SpecificInfo: Prescription(s) given Scripts Hydrocodone-Acetaminophen (Lortab)5-325 Mg Tab1-2 Tab PO Q6H PRN (PAIN SCALE 6 TO 10) #20 TAB Ref 0 Prov:Bossman Patel MD 6/26/17 Disposition: 01 DISCHARGE HOME Condition: Stable Patel,Bossman C. MD May 17, 2017 11:24
[2017-05-17 11:33] VITALS: BP 158/71; PULSE 60; RESP 18; O2SAT 95
--- NOTE | 2017-05-17 11:43 | RADRPT ---
EXAM DATE/TIME: 05/17/2017 10:57 [facility] COMPARISON: CT ABDOMEN & PELVIS W/O CONTRAST, January 10, 2017, 16:50. INDICATIONS : Left back pain rule out retroperitoneal bleed post fall ORAL CONTRAST: No oral contrast ingested. RADIATION DOSE: 24.44 CTDIvol (mGy) MEDICAL HISTORY : Cerebrovascular disease. Cardiovascular disease SURGICAL HISTORY : Colon resection. IVC Filter placement. ENCOUNTER: Initial ACUITY: 4 - 6 days PAIN SCALE: 6/10 LOCATION: Left posterior back pain TECHNIQUE: Volumetric scanning of the abdomen and pelvis was performed. Using automated exposure control and ad justment of the mA and/or kV according to patient size, radiation dose was kept as low as reasonably achievable to obtain optimal diagnostic quality images. DICOM format image data is available electro nically for review and comparison. FINDINGS: LOWER LUNGS: Stable linear break opacities at the lung bases consistent with scarring. LIVER: Homogeneous density without lesion. There is no dilation of the biliary tree. There is a calcified g allstone in the gallbladder which otherwise appears unremarkable I. CT. SPLEEN: Normal size without lesion. PANCREAS: Within normal limits. KIDNEYS: Kidneys are symmetrical in size without evidence for hydronephrosis or radiopaque renal calculi. Ther e is a stable 2.1 x 2.8 cm cyst in the mid left kidney. There is a 2.1 x 1.8 cm cyst with possible si ngle septation in the mid right kidney. No additional significant contour deforming abnormalities. ADRENAL GLANDS: Within normal limits. VASCULAR: Stable IVC filter in place. Atherosclerotic calcifications of the distal aorta and common iliac arter ies. BOWEL/MESENTERY: Mild sigmoid diverticulosis without significant inflammatory changes to suggest diverticulitis. Bowel is otherwise grossly unremarkable. No significant free fluid or drainable fluid collection in the ab domen. ABDOMINAL WALL: Stable postsurgical features of ventral hernia repair. No significant abdominal wall abnormality. RETROPERITONEUM: No evidence for retroperitoneal mass or hematoma as questioned. BLADDER: No wall thickening or mass. REPRODUCTIVE: Nonspecific significant enlargement of the prostate gland with mass effect at the bladder neck. INGUINAL: Moderate to large left sided fat containing inguinal hernia. MUSCULOSKELETAL: Degenerative spondylosis of the lumbar spine. No significant vertebral compression deformities. CONCLUSION: 1. No acute abnormality in the abdomen or pelvis. Specifically, no evidence for retroperitoneal hemat cris as questioned. 2. Nonspecific marked enlargement of the prostate gland. Clinical correlation is recommended. 3. Ancillary findings include bilateral renal cysts, cholelithiasis, stable IVC filter, sigmoid diver ticulosis, ventral hernia repair, and fat containing left inguinal hernia. Christopher Castillo MD on May 17, 2017 at 11:30 Board Certified Radiologist. This report was verified electronically.
[2017-05-17] MEDS ORDERED: HYDR-3533 PO (12:15)
[2017-05-17 12:23] VITALS: BP 150/58; PULSE 58; RESP 18; O2SAT 95
== END 2017-05-17 12:48 | disposition home or self-care (01) ==
LOC: PHED 09:47
DX: M54.5 Low back pain (principal); N40.0 Benign prostatic hyperplasia without lower urinary tract symptoms; Z79.01 Long term (current) use of anticoagulants; Z86.73 Personal history of transient ischemic attack (TIA), and cerebral infarction without residual deficits; I10 Essential (primary) hypertension; M19.90 Unspecified osteoarthritis, unspecified site; I25.2 Old myocardial infarction; E07.9 Disorder of thyroid, unspecified; Z95.2 Presence of prosthetic heart valve
CPT/HCPCS: 74176; 80048; 85025; 85610; 85730; 96374; 99285; J2270

== ENCOUNTER → 2017-05-24 | Outpatient (CLI) | payer MEDICARE, OTHER ==
[~2017-05-24] MED LIST changes: -ASPI1TAB69 PO; +ASPI81CH CHEW; -FINA5TAB2 PO; +HYDR-3533 PO; +HYDR-3801 PO; -HYDR25TA35 PO; -LEVO500T3 PO; +NEXI40CA PO; -TAMS0.4C4 PO
[2017-05-24 12:57] LABS: HEMATOCRIT 36.8 % (39.0-51.0); MEAN CELL VOLUME 89.7 FL (80.0-100.0); MEAN CORPUSCULAR HEMOGLOBIN 29.4 PG (27.0-34.0); MEAN CORPUSCULAR HGB CONC 32.8 % (32.0-36.0); PLATELET COUNT 141 TH/MM3 (150-450); RED CELL DISTRIBUTION WIDTH 17.2 % (11.6-17.2); REVIEW FLAG FINAL; WHITE BLOOD COUNT 5.9 TH/MM3 (4.0-11.0)
[2017-05-24 13:25] LABS: ANION GAP 6 MEQ/L (5-15); BICARBONATE 29.5 MEQ/L (21.0-32.0); BLOOD UREA NITROGEN 31 MG/DL (7-18); CHLORIDE 105 MEQ/L (98-107); GLOMERULAR FILTRATION RATE 36 ML/MIN (>89); GLUCOSE,FASTING 114 MG/DL (74-99); POTASSIUM 4.7 MEQ/L (3.5-5.1); SODIUM (NA) 140 MEQ/L (136-145)
[2017-05-24 17:43] LABS: HEMOGLOBIN A1a 1.2 %; HEMOGLOBIN A1b 0.8 %; HEMOGLOBIN F 1.5 %; HEMOGLOBIN LA1C 2.3 %; HEMOGLOBIN P3 5.9 %
== END ==
LOC: PLAB 08:27
DX: N18.3 Chronic kidney disease, stage 3 (moderate) (principal); E11.22 Type 2 diabetes mellitus with diabetic chronic kidney disease; E11.65 Type 2 diabetes mellitus with hyperglycemia; D63.1 Anemia in chronic kidney disease; Z79.899 Other long term (current) drug therapy
CPT/HCPCS: 36415; 80048; 83036; 85027

== ENCOUNTER → 2017-06-24 | Outpatient (CLI) | payer MEDICARE, OTHER ==
[2017-06-24 13:07] LABS: HEMATOCRIT 37.2 % (39.0-51.0); MEAN CELL VOLUME 90.4 FL (80.0-100.0); MEAN CORPUSCULAR HEMOGLOBIN 29.9 PG (27.0-34.0); MEAN CORPUSCULAR HGB CONC 33.1 % (32.0-36.0); PLATELET COUNT 122 TH/MM3 (150-450); RED BLOOD COUNT 4.12 MIL/MM3 (4.50-5.90); RED CELL DISTRIBUTION WIDTH 16.9 % (11.6-17.2); REVIEW FLAG FINAL; WHITE BLOOD COUNT 6.4 TH/MM3 (4.0-11.0)
[2017-06-24 13:39] LABS: BICARBONATE 28.8 MEQ/L (21.0-32.0); POTASSIUM 5.3 MEQ/L (3.5-5.1)
== END ==
LOC: PLAB 08:55
DX: E11.65 Type 2 diabetes mellitus with hyperglycemia (principal); D69.6 Thrombocytopenia, unspecified; D64.9 Anemia, unspecified; Z79.899 Other long term (current) drug therapy
CPT/HCPCS: 36415; 80048; 85027

== ENCOUNTER → 2017-08-04 | Outpatient (CLI) | payer MEDICARE, OTHER ==
[2017-08-04 13:20] LABS: HEMATOCRIT 39.7 % (39.0-51.0); MEAN CELL VOLUME 90.7 FL (80.0-100.0); MEAN CORPUSCULAR HEMOGLOBIN 29.8 PG (27.0-34.0); MEAN CORPUSCULAR HGB CONC 32.9 % (32.0-36.0); PLATELET COUNT 116 TH/MM3 (150-450); RED BLOOD COUNT 4.38 MIL/MM3 (4.50-5.90); RED CELL DISTRIBUTION WIDTH 16.5 % (11.6-17.2); REVIEW FLAG FINAL; WHITE BLOOD COUNT 6.1 TH/MM3 (4.0-11.0)
[2017-08-04 13:38] LABS: BICARBONATE 27.7 MEQ/L (21.0-32.0); POTASSIUM 5.1 MEQ/L (3.5-5.1)
== END ==
LOC: PLAB 09:10
DX: E11.65 Type 2 diabetes mellitus with hyperglycemia (principal); D64.9 Anemia, unspecified; Z79.899 Other long term (current) drug therapy
CPT/HCPCS: 36415; 80048; 85027

== ENCOUNTER → 2017-09-15 | Outpatient (CLI) | payer MEDICARE, OTHER ==
[2017-09-15 17:22] LABS: HEMATOCRIT 38.2 % (39.0-51.0); MEAN CELL VOLUME 90.3 FL (80.0-100.0); MEAN CORPUSCULAR HEMOGLOBIN 30.8 PG (27.0-34.0); MEAN CORPUSCULAR HGB CONC 34.1 % (32.0-36.0); MEAN PLATELET VOLUME 7.8 FL (7.0-11.0); PLATELET COUNT 124 TH/MM3 (150-450); RED BLOOD COUNT 4.23 MIL/MM3 (4.50-5.90); RED CELL DISTRIBUTION WIDTH 16.8 % (11.6-17.2); WHITE BLOOD COUNT 7.1 TH/MM3 (4.0-11.0)
[2017-09-15 17:59] LABS: FREE T4 1.26 NG/DL (0.76-1.46)
== END ==
LOC: PLAB 15:30
PROVIDERS: ATTEND Internal Medicine Interventional Cardiology
DX: R53.83 Other fatigue (principal); R06.02 Shortness of breath; D69.6 Thrombocytopenia, unspecified
CPT/HCPCS: 36415; 83880; 84439; 84443; 85027

== ENCOUNTER → 2017-10-08 | Outpatient (CLI) | payer MEDICARE, OTHER ==
[~2017-10-08] MED LIST changes: +ASPI-516 CHEW; -ASPI81CH CHEW; -ATOR1TAB18 PO; +ATOR80TA45 PO
[2017-10-08 13:34] LABS: HEMATOCRIT 37.5 % (39.0-51.0); MEAN CELL VOLUME 91.6 FL (80.0-100.0); MEAN CORPUSCULAR HEMOGLOBIN 30.7 PG (27.0-34.0); MEAN CORPUSCULAR HGB CONC 33.5 % (32.0-36.0); PLATELET COUNT 130 TH/MM3 (150-450); RED BLOOD COUNT 4.09 MIL/MM3 (4.50-5.90); RED CELL DISTRIBUTION WIDTH 16.5 % (11.6-17.2); REVIEW FLAG FINAL; WHITE BLOOD COUNT 7.4 TH/MM3 (4.0-11.0)
[2017-10-08 14:06] LABS: ALT (GPT) 36 U/L (12-78); ANION GAP 7 MEQ/L (5-15); AST (GOT) 28 U/L (15-37); BICARBONATE 26.7 MEQ/L (21.0-32.0); BLOOD UREA NITROGEN 39 MG/DL (7-18); CHLORIDE 104 MEQ/L (98-107); GLOMERULAR FILTRATION RATE 35 ML/MIN (>89); GLUCOSE,FASTING 142 MG/DL (74-99); POTASSIUM 4.3 MEQ/L (3.5-5.1); SODIUM (NA) 138 MEQ/L (136-145)
[2017-10-08 14:11] LABS: ALKALINE PHOSPHATASE 72 U/L (45-117); CREATINE KINASE 136 U/L (39-308); HDL CHOLESTEROL 39.4 MG/DL (40.0-60.0); LDL CHOLESTEROL 45 MG/DL (0-99); TOTAL BILIRUBIN ADULT 0.6 MG/DL (0.2-1.0)
[2017-10-08 18:30] LABS: HEMOGLOBIN A1a 1.4 %; HEMOGLOBIN A1b 0.9 %; HEMOGLOBIN Ao 82.1 %; HEMOGLOBIN F 1.7 %; HEMOGLOBIN LA1C 2.6 %; HEMOGLOBIN P3 5.9 %
== END ==
LOC: PLAB 11:11
DX: E78.00 Pure hypercholesterolemia, unspecified (principal); N18.3 Chronic kidney disease, stage 3 (moderate); E11.22 Type 2 diabetes mellitus with diabetic chronic kidney disease; E11.65 Type 2 diabetes mellitus with hyperglycemia; D63.1 Anemia in chronic kidney disease; Z79.899 Other long term (current) drug therapy
CPT/HCPCS: 36415; 80053; 80061; 82550; 83036; 85027

== ENCOUNTER 2017-10-14 17:58 | Emergency (ER) | payer MEDICARE, OTHER ==
[~2017-10-14] VITALS: Ht 188 cm; Wt 103.0 kg
[2017-10-14 17:59] VITALS: BP 173/74; PULSE 86; RESP 18; TEMP 97.8; O2SAT 93
--- NOTE | 2017-10-14 18:49 | PD ---
HPI Chief Complaint: GI Complaint Time Seen by Provider: 18:45 Travel History International Travel<30 days: No Contact w/Intl Traveler<30days: No Traveled to known affect area: No History of Present Illness HPI patient c/o 4 days without a "good" bowel movement, states that he tried miralax and sennokot and did not have adequate movements...area of discomfort is lower abdomen, pressure, 3/10, intermittent.... denies assoc fever/n/v/cp/ back pain at this point...no current aggrevating or alleviating factors PFSH Past Medical History Hx Anticoagulant Therapy: Yes (ELEQUIS) Arthritis: No Asthma: No Autoimmune Disease: No Blood Disorders: No Heart Rhythm Problems: No Cancer: Yes (SKIN, ON BACK) Cardiovascular Problems: Yes High Cholesterol: No Chest Pain: Yes (CARDIAC CATH 2004) Congestive Heart Failure: Yes (MAYBE, PT NOT OFFICIALLY TOLD) COPD: No Cerebrovascular Accident: Yes (cva x2) Diabetes: Yes Patient Takes Glucophage: Yes Diminished Hearing: No Endocrine: Yes Gastrointestinal Disorders: Yes (CONSTIPATION) GERD: No Glaucoma: No Genitourinary: Yes (BPH) Hepatitis: No Hiatal Hernia: Yes Hypertension: Yes Immune Disorder: No Implanted Vascular Access Dvce: Yes Musculoskeletal: Yes (ARTHRITIS) Neurologic: Yes (STROKE HX) Psychiatric: No Reproductive: No Respiratory: Yes (DEVIATED SEPTUM) Immunizations Current: Yes Myocardial Infarction: Yes Thyroid Disease: Yes Ulcer: No Tetanus Vaccination: < 5 Years Influenza Vaccination: No Past Surgical History Abdominal Surgery: Yes (COLON RESECT (COLONOSCOPY PERF)) AICD: No Body Medical Devices: VENA CAVA FILTER, CARDIAC VALVE Cardiac Surgery: Yes (VENA CAVA FILTER, VALVE REPLACEMENT ) Ear Surgery: Yes (LEFT MASTOIDECTOMY) Endocrine Surgery: No Eye Surgery: Yes (BRIANDA. CATARACT EXTRACT) Genitourinary Surgery: Yes (GREENLIGHT LASER PROSTATE) Gynecologic Surgery: No Joint Replacement: Yes (LEFT KNEE, RIGHT KNEE) Neurologic Surgery: Yes (LUMBAR DISCECTOMY X2) Oral Surgery: No Pacemaker: No Thoracic Surgery: No Other Surgery: Yes (LEFT CAROTID ENDARTERECTOMY) Social History Alcohol Use: No Tobacco Use: No Substance Use: No Allergies-Medications (Allergen,Severity, Reaction): Coded Allergies: Sulfa (Sulfonamide Antibiotics) (Unverified Allergy, Unknown, UNKNOWN, ) iodine (Unverified Allergy, Unknown, 10/14/17) potassium iodide (Unverified Allergy, Unknown, 10/14/17) povidone-iodine (Unverified Allergy, Unknown, 10/14/17) sodium iodide (Unverified Allergy, Unknown, 10/14/17) sodium iodide (Unverified Allergy, Unknown, 10/14/17) Reported Meds & Prescriptions Reported Meds & Active Scripts Active Reported Nexium (Esomeprazole DR) 40 Mg Capdr 40 Mg PO DAILY Hydralazine (Hydralazine HCl) 100 Mg Tab 75 Mg PO BID Take with meals Aspirin 81 Mg Chew 81 Mg CHEW ONCE Metoprolol Tartrate 25 Mg Tab 25 Mg PO BID Isosorbide Mononitrate ER (Isosorbide Mononitrate) 30 Mg Yvonne 30 Mg PO DAILY Glipizide 5 Mg Tab 5 Mg PO DAILY Take 30 minutes before a meal Eliquis (Apixaban) 5 Mg Tab 5 Mg PO BID Atorvastatin (Atorvastatin Calcium) 80 Mg Tab 80 Mg PO HS Review of Systems General / Constitutional: No: Fever Eyes: No: Visual changes HENT: No: Headaches Cardiovascular: No: Chest Pain or Discomfort Respiratory: No: Shortness of Breath Gastrointestinal: Positive: Abdominal Pain, Constipation Genitourinary: No: Dysuria Musculoskeletal: No: Pain Skin: No Rash Neurologic: No: Weakness Psychiatric: No: Depression Endocrine: No: Polydipsia Hematologic/Lymphatic: No: Easy Bruising Physical Exam Narrative GENERAL: SKIN: Warm and dry. HEAD: Atraumatic. Normocephalic. EYES: Pupils equal and round. No scleral icterus. No injection or drainage. ENT: No nasal bleeding or discharge. Mucous membranes pink and moist. NECK: Trachea midline. No JVD. CARDIOVASCULAR: Regular rate and rhythm. RESPIRATORY: No accessory muscle use. Clear to auscultation. Breath sounds equal bilaterally. GASTROINTESTINAL: Abdomen soft, non-tender, nondistended. MUSCULOSKELETAL: Extremities without clubbing, cyanosis, or edema. No obvious deformities. NEUROLOGICAL: Awake and alert. No obvious cranial nerve deficits. Motor grossly within normal limits. Five out of 5 muscle strength in the arms and legs. Normal speech. PSYCHIATRIC: Appropriate mood and affect; insight and judgment normal. Data Data Last Documented VS Vital Signs Date Time Temp Pulse Resp B/P (MAP) Pulse Ox O2 Delivery O2 Flow Rate FiO2 11/23/17 20:30 80 20 155/80 (105) 95 10/14/17 19:24 Room Air 10/14/17 17:[address] Abd/Pel W/O Iv Contrast (10/14/17 18:36) Fleets Enema (Adult) (Fleets Enema (Adul (10/14/17 19:45) Ed Discharge Order (10/14/17 20:33) MDM Medical Decision Making Medical Screen Exam Complete: Yes Emergency Medical Condition: Yes Medical Record Reviewed: Yes Differential Diagnosis sbo v ileus v diverticulitis Narrative Course signed out to dr doe pending ct results and appropriate dispo and treatment Diagnosis Primary Impression: constipation Jeffrey Lucio MD Oct 14, 2017 18:49
--- NOTE | 2017-10-14 19:13 | RADRPT ---
EXAM DATE/TIME: 10/14/2017 18:49 [facility] COMPARISON: No previous studies available for comparison. INDICATIONS : Constipation x 4 days. Evaluate for diverticulitis. ORAL CONTRAST: No oral contrast ingested. RADIATION DOSE: 19.77 CTDIvol (mGy) MEDICAL HISTORY : Myocardial infarction. Cerebrovascular disease. Congestive heart failure.Diabetes. Hypertension. SURGICAL HISTORY : Colon resection. Carotid endarterectomy.Valve replacement. ENCOUNTER: Initial ACUITY: 3 days PAIN SCALE: 3/10 LOCATION: Bilateral lower quadrant TECHNIQUE: Volumetric scanning of the abdomen and pelvis was performed. Using automated exposure control and ad justment of the mA and/or kV according to patient size, radiation dose was kept as low as reasonably achievable to obtain optimal diagnostic quality images. DICOM format image data is available electro nically for review and comparison. FINDINGS: There is a mild sigmoid diverticulitis on the right side of sigmoid colon distally. Previous ventral hernia repair. No bowel obstruction. No free air or free fluid. Inferior vena cava f ilter present. Lung bases demonstrate linear scarring similar to May 17. No acute findings in the liver, spleen, ad renals, kidneys or pancreas. Stable renal cysts. Calcified gallstone. CONCLUSION: 1. Mild distal sigmoid diverticulitis without abscess, obstruction, free fluid or free air. Calcified gallstone. Stable basilar lung scarring. Postoperative ventral hernia repair an inferior ve na cava filter placement Manuel Gomez MD on October 14, 2017 at 19:07 Board Certified Radiologist. This report was verified electronically.
[2017-10-14 19:24] VITALS: BP 167/71; PULSE 83; RESP 20; O2SAT 93
[2017-10-14] MEDS ORDERED: SOD PHOSPHATE/SOD BIPHOSPHATE (ADULT) ENEMA 133ML RECTAL ONE (19:45)
--- NOTE | 2017-10-14 19:45 | PD ---
Physical Exam Time Seen by Provider: 19:[address] Lucio left this patient with me to check the results of the CT scan and make a disposition regarding possible diverticulitis. The patient did not come in for abdominal pain, he came in because he has not had a bowel movement in 4 days. He is a regular laxative taker and takes MiraLAX every day. On physical exam the abdomen is soft with minimal discomfort in the lower quadrants to direct palpation, no guarding or rebound is present. RECTAL EXAM: No masses or tenderness, stool is brown with large, hard fecal impactions in the rectum. The impactions were digitally removed. The patient will be getting an enema Data Data Last Documented VS Vital Signs Date Time Temp Pulse Resp B/P (MAP) Pulse Ox O2 Delivery O2 Flow Rate FiO2 10/14/17 19:24 83 20 167/71 (103) 93 Room Air 10/14/17 17:[address] Abd/Pel W/O Iv Contrast (10/14/17 18:36) Urinalysis - C+S If Indicated (10/14/17 18:37) Fleets Enema (Adult) (Fleets Enema (Adul (10/14/17 19:45) MDM Medical Record Reviewed: Yes Supervised Visit with JOSÉ MIGUEL: No Interpretation(s) The CT abdomen/pelvis without IV contrast shows mild distal sigmoid diverticulitis without abscess, obstruction, free air or free fluid. Also incidentally notes a calcified gallstone. It also noticed postoperative ventral hernia repair and an inferior vena cava filter placement. Differential Diagnosis Diverticulitis, fecal impaction, ileus, constipation Narrative Course It is now a 20 7 PM and the patient feels no pain. He had a large bowel movement following the fleets enema which relieved the discomfort/constipation. He feels fine and wants to go home. He was told that he does have diverticulitis and I mention an antibiotics but he does really want to take antibiotics because he has no abdominal pain and does not feel that they are necessary at this time. Diagnosis Primary Impression: Abdominal pain Additional Impressions: Diverticulitis large intestine Fecal impaction in rectum Additional Instruction: As we discussed, follow-up with her primary care physician. Hopefully he can gradually get you off of laxative dependence. Regular laxative taking tends to paralyze the bowels and sits you up for fecal impaction like you had tonight. Disposition: 01 DISCHARGE HOME Condition: Stable Oj Dan MD Oct 14, 2017 19:45
[2017-10-14 20:30] VITALS: BP 155/80
== END 2017-10-14 20:37 | disposition home or self-care (01) ==
LOC: PHED 17:58
DX: K56.41 Fecal impaction (principal); K57.32 Diverticulitis of large intestine without perforation or abscess without bleeding
CPT/HCPCS: 74176

== ENCOUNTER → 2017-11-09 | Outpatient (CLI) | payer MEDICARE, OTHER ==
[~2017-11-09] MED LIST changes: -HYDR-3533 PO
== END ==
LOC: PHRSP 10:59
PROVIDERS: ATTEND Internal Medicine Sleep Medicine
DX: R06.89 Other abnormalities of breathing (principal)
CPT/HCPCS: 36600; 82805

== ENCOUNTER → 2017-11-23 | Outpatient (CLI) | payer MEDICARE, OTHER ==
[2017-11-23 16:12] LABS: BICARBONATE 26.3 MEQ/L (21.0-32.0); CALCIUM 9.3 MG/DL (8.5-10.1); CREATININE 1.89 MG/DL (0.60-1.30)
== END ==
LOC: PLAB 12:23
DX: N18.3 Chronic kidney disease, stage 3 (moderate) (principal); E11.22 Type 2 diabetes mellitus with diabetic chronic kidney disease; E11.65 Type 2 diabetes mellitus with hyperglycemia; Z79.899 Other long term (current) drug therapy
CPT/HCPCS: 36415; 80048

== ENCOUNTER → 2017-12-29 | Outpatient (CLI) | payer MEDICARE, OTHER ==
[2017-12-29 13:37] LABS: HEMATOCRIT 40.2 % (39.0-51.0); HEMOGLOBIN 13.4 GM/DL (13.0-17.0); MEAN CELL VOLUME 91.8 FL (80.0-100.0); MEAN CORPUSCULAR HEMOGLOBIN 30.6 PG (27.0-34.0); MEAN CORPUSCULAR HGB CONC 33.4 % (32.0-36.0); MEAN PLATELET VOLUME 7.9 FL (7.0-11.0); PLATELET COUNT 115 TH/MM3 (150-450); RED BLOOD COUNT 4.38 MIL/MM3 (4.50-5.90); WHITE BLOOD COUNT 6.3 TH/MM3 (4.0-11.0)
[2017-12-29 13:43] LABS: BICARBONATE 28.6 MEQ/L (21.0-32.0); BLOOD UREA NITROGEN 28 MG/DL (7-18); CALCIUM 9.6 MG/DL (8.5-10.1); CHLORIDE 104 MEQ/L (98-107); CREATININE 1.87 MG/DL (0.60-1.30); GLOMERULAR FILTRATION RATE 34 ML/MIN (>89); GLUCOSE,FASTING 129 MG/DL (74-99); SODIUM (NA) 139 MEQ/L (136-145)
[2017-12-29 17:01] LABS: HEMOGLOBIN A1C 7.4 % (4.3-6.0)
== END ==
LOC: PLAB 10:45
DX: I12.9 Hypertensive chronic kidney disease with stage 1 through stage 4 chronic kidney disease, or unspecified chronic kidney disease (principal); N18.3 Chronic kidney disease, stage 3 (moderate); D63.1 Anemia in chronic kidney disease; E11.65 Type 2 diabetes mellitus with hyperglycemia; E11.22 Type 2 diabetes mellitus with diabetic chronic kidney disease; Z79.899 Other long term (current) drug therapy
CPT/HCPCS: 36415; 80048; 83036; 85027

== ENCOUNTER 2018-02-01 20:30 | Inpatient (IN) | payer MEDICARE, OTHER ==
[~2018-02-01] VITALS: Ht 188 cm; Wt 103.5 kg
[~2018-02-01 20:30] MED LIST changes: -CARV6.252 PO
[2018-02-01 20:36] VITALS: BP 147/67; PULSE 104; RESP 18; TEMP 101; O2SAT 94
[2018-02-01] MEDS ORDERED: PIPERACIL-TAZO 4.5 GM PREMIX 100 ML IV STA (21:29)
[2018-02-01] MEDS ORDERED: ACETAMINOPHEN 325 MG TAB PO ONE (21:30)
[2018-02-01] MEDS ORDERED: SODIUM CHLORID 0.9% 500 ML INJ 500 ML IV ONE (21:30)
--- NOTE | 2018-02-01 21:40 | PD ---
HPI Chief Complaint: uti Time Seen by Provider: 21:29 Travel History International Travel<30 days: No Contact w/Intl Traveler<30days: No Traveled to known affect area: No History of Present Illness HPI 87-year-old male presents to the emergency department by private transportation to care family for evaluation of fever chills nausea generalized weakness low blood pressure and today was seen by his primary care provider and started on Cipro for urinary tract infection. According the patient for the past week to week and a half he has had poor oral intake has had episodes of hematuria and reportedly low blood pressure. Patient did not contact his primary care provider regarding the symptoms. Patient did contact his primary care urologist who told him that occasionally he will experience some hematuria but he did not share with his urologist his other symptoms. Patient went to see his urologist today but his urologist is out of town so in size primary care provider who started him on Cipro. Patient has taken 2 doses of Cipro. This evening patient states symptoms began to worsen and so he finally decided to come to the emergency room for evaluation. Patient has extensive past medical history including valvular heart disease with valve replacement Eliquis use CAD hypertension dyslipidemia CVA diabetes diverticulitis BPH hypothyroidism dvt, cardiac cath valvular heart disease vena cava filter carotid endarterectomy and cataract surgery. Patient rates current discomfort as mild. Patient denies any hematuria at this time. Patient is taken no antipyretic medications. PFSH Past Medical History Narrative Medical valvular heart disease with valve replacement Eliquis use CAD hypertension dyslipidemia CVA diabetes diverticulitis BPH hypothyroidism dvt, cardiac cath valvular heart disease vena cava filter carotid endarterectomy cataract surgery ; no tobacco use; nursing notes reviewed Hx Anticoagulant Therapy: Yes (ELEQUIS) Arthritis: No Asthma: No Autoimmune Disease: No Blood Disorders: No Heart Rhythm Problems: No Cancer: Yes (SKIN, ON BACK) Cardiovascular Problems: Yes High Cholesterol: No Chest Pain: Yes (CARDIAC CATH 2004) Congestive Heart Failure: Yes (MAYBE, PT NOT OFFICIALLY TOLD) COPD: No Cerebrovascular Accident: Yes (cva x2) Diabetes: Yes Diminished Hearing: No Endocrine: Yes Gastrointestinal Disorders: Yes (CONSTIPATION) GERD: No Glaucoma: No Genitourinary: Yes (BPH) Hepatitis: No Hiatal Hernia: Yes Hypertension: Yes Immune Disorder: No Implanted Vascular Access Dvce: Yes Musculoskeletal: Yes (ARTHRITIS) Neurologic: Yes (STROKE HX) Psychiatric: No Reproductive: No Respiratory: Yes (DEVIATED SEPTUM) Immunizations Current: Yes Myocardial Infarction: Yes Thyroid Disease: Yes Ulcer: No Past Surgical History Abdominal Surgery: Yes (COLON RESECT (COLONOSCOPY PERF)) AICD: No Body Medical Devices: VENA CAVA FILTER, CARDIAC VALVE Cardiac Surgery: Yes (VENA CAVA FILTER, VALVE REPLACEMENT ) Ear Surgery: Yes (LEFT MASTOIDECTOMY) Endocrine Surgery: No Eye Surgery: Yes (BRIANDA. CATARACT EXTRACT) Genitourinary Surgery: Yes (GREENLIGHT LASER PROSTATE) Gynecologic Surgery: No Joint Replacement: Yes (LEFT KNEE, RIGHT KNEE) Neurologic Surgery: Yes (LUMBAR DISCECTOMY X2) Oral Surgery: No Pacemaker: No Thoracic Surgery: No Other Surgery: Yes (LEFT CAROTID ENDARTERECTOMY) Social History Alcohol Use: No Tobacco Use: No Substance Use: No Allergies-Medications (Allergen,Severity, Reaction): Coded Allergies: Sulfa (Sulfonamide Antibiotics) (Verified Allergy, Unknown, UNKNOWN, ) iodine (Verified Allergy, Unknown, 02/01/18) potassium iodide (Verified Allergy, Unknown, 02/01/18) povidone-iodine (Verified Allergy, Unknown, 02/01/18) sodium iodide (Verified Allergy, Unknown, 02/01/18) sodium iodide (Verified Allergy, Unknown, 02/01/18) Reported Meds & Prescriptions Reported Meds & Active Scripts Active Reported Carvedilol 6.25 Mg Tab 6.25 Mg PO BID Hydralazine (Hydralazine HCl) 100 Mg Tab 100 Mg PO BID Take with meals Nexium (Esomeprazole DR) 40 Mg Capdr 40 Mg PO DAILY Aspirin 81 Mg Chew 81 Mg CHEW ONCE Isosorbide Mononitrate ER (Isosorbide Mononitrate) 30 Mg Yvonne 30 Mg PO DAILY Glipizide 5 Mg Tab 5 Mg PO DAILY Take 30 minutes before a meal Eliquis (Apixaban) 5 Mg Tab 5 Mg PO BID Atorvastatin (Atorvastatin Calcium) 80 Mg Tab 80 Mg PO HS Review of Systems Except as stated in HPI: all other systems reviewed are Neg General / Constitutional: Positive: Fever, Chills Eyes: No: Visual changes HENT: No: Headaches, Congestion Cardiovascular: No: Chest Pain or Discomfort Respiratory: No: Cough, Shortness of Breath Gastrointestinal: Positive: Nausea, Vomiting (x1), Abdominal Pain Genitourinary: Positive: Frequency, Dysuria, Hematuria, No: Flank Pain Musculoskeletal: Positive: Myalgias, Arthralgias Skin: No Rash Neurologic: Positive: Weakness, No: Dizziness, Syncope, Focal Abnormalities, Coordination Problem Psychiatric: No: Anxiety Endocrine: No: Heat Intolerance Hematologic/Lymphatic: No: Easy Bruising Physical Exam Narrative GENERAL: Well-developed well-nourished elderly male in no acute distress or respiratory distress; abnormal triage vital signs febrile with tachycardiancreased n SKIN: Warm and dry. HEAD: Normocephalic. EYES: No scleral icterus. No injection or drainage. NECK: Supple, trachea midline. No JVD or lymphadenopathy. CARDIOVASCULAR: Increased regular rate and rhythm without murmurs, gallops, or rubs. RESPIRATORY: Breath sounds equal bilaterally. No accessory muscle use. GASTROINTESTINAL: Abdomen soft, non-tender, nondistended. MUSCULOSKELETAL: No cyanosis, or edema. BACK: Nontender without obvious deformity. No CVA tenderness. Data Data Last Documented VS Vital Signs Date Time Temp Pulse Resp B/P (MAP) Pulse Ox O2 Delivery O2 Flow Rate FiO2 02/02/18 00:09 88 16 144/65 (91) 98 Nasal Cannula 2.00 02/01/18 23:48 98.9 Orders Orders Sepsis Workup Initiated (02/01/18 ) Complete Blood Count With Diff (02/01/18 21:29) Comprehensive Metabolic Panel (02/01/18 21:29) Prothrombin Time / Inr (Pt) (02/01/18 21:29) Act Partial Throm Time (Ptt) (02/01/18 21:29) Lactic Acid Sepsis Protocol (02/01/18 21:29) Magnesium (Mg) (02/01/18 21:29) Lipase (02/01/18 21:29) Ckmb (Isoenzyme) Profile (02/01/18 21:29) Troponin I (02/01/18 21:29) Urinalysis - C+S If Indicated (02/01/18 21:29) Blood Culture (02/01/18 21:29) Chest, Single Ap (02/01/18 21:29) Blood Glucose (02/01/18 21:29) Ecg Monitoring (02/01/18 21:29) Iv Access Insert/Monitor (02/01/18 21:29) Oximetry (02/01/18 21:29) Oxygen Administration (02/01/18 21:29) Acetaminophen (Tylenol) (02/01/18 21:30) Ct Abd/Pel W/O Iv Contrast (02/01/18 21:29) Piperacil-Tazo 4.5 Gm Premix (Zosyn 4.5 (02/01/18 21:29) Sodium Chlorid 0.9% 500 Ml Inj (Ns 500 M (02/01/18 21:30) Electrocardiogram (02/01/18 ) Sodium Chlor 0.9% 1000 Ml Inj (Ns 1000 M (02/01/18 23:45) Cath For Specimen (02/01/18 23:51) Influenzae A/B Antigen (02/02/18 00:49) Urine Culture (02/02/18 00:22) Admit Order (Ed Use Only) (02/02/18 ) Vital Signs (Adult) Q4H (02/02/18 01:10) Diet 2000 Ada Cons Carb (02/02/18 Breakfast) Activity Oob With Assistance (02/02/18 01:10) Notify Dr: Other (02/02/18 01:10) Labs Laboratory Tests Test 02/01/18 22:15 02/02/18 00:22 White Blood Count 9.2 TH/MM3 Red Blood Count 4.42 MIL/MM3 Hemoglobin 13.1 GM/DL Hematocrit 39.6 % Mean Corpuscular Volume 89.6 FL Mean Corpuscular Hemoglobin 29.6 PG Mean Corpuscular Hemoglobin Concent 33.0 % Red Cell Distribution Width 15.7 % Platelet Count 149 TH/MM3 Mean Platelet Volume 7.4 FL Neutrophils (%) (Auto) 84.8 % Lymphocytes (%) (Auto) 6.3 % Monocytes (%) (Auto) 8.0 % Eosinophils (%) (Auto) 0.4 % Basophils (%) (Auto) 0.5 % Neutrophils # (Auto) 7.9 TH/MM3 Lymphocytes # (Auto) 0.6 TH/MM3 Monocytes # (Auto) 0.7 TH/MM3 Eosinophils # (Auto) 0.0 TH/MM3 Basophils # (Auto) 0.0 TH/MM3 CBC Comment DIFF FINAL Differential Comment Prothrombin Time 12.9 SEC Prothromb Time International Ratio 1.3 RATIO Activated Partial Thromboplast Time 31.1 SEC Blood Urea Nitrogen 28 MG/DL Creatinine 1.90 MG/DL Random Glucose 107 MG/DL Total Protein 8.3 GM/DL Albumin 3.5 GM/DL Calcium Level 9.1 MG/DL Magnesium Level 1.6 MG/DL Alkaline Phosphatase 73 U/L Aspartate Amino Transf (AST/SGOT) 22 U/L Alanine Aminotransferase (ALT/SGPT) 22 U/L Total Bilirubin 0.9 MG/DL Sodium Level 132 MEQ/L Potassium Level 4.4 MEQ/L Chloride Level 100 MEQ/L Carbon Dioxide Level 24.0 MEQ/L Anion Gap 8 MEQ/L Estimat Glomerular Filtration Rate 34 ML/MIN Lactic Acid Level 1.1 mmol/L Total Creatine Kinase 96 U/L Troponin I 0.02 NG/ML Lipase 184 U/L Urine Collection Type CATH Urine Color YELLOW Urine Turbidity SL CLOUDY Urine pH 6.0 Urine Specific [place] 1.020 Urine Protein 30 mg/dL Urine Glucose (UA) NEG mg/dL Urine Ketones NEG mg/dL Urine Occult Blood NEG Urine Nitrite NEG Urine Bilirubin NEG Urine Urobilinogen 1.0 MG/DL Urine Leukocyte Esterase SMALL Urine RBC 4-9 /hpf Urine WBC 25-49 /hpf Urine WBC Clumps OCC Urine Squamous Epithelial Cells 0-5 /hpf Urine Amorphous Sediment SMALL Urine Mucus OCC /lpf Microscopic Urinalysis Comment CATH-CULTURE IND MDM Medical Decision Making Medical Screen Exam Complete: Yes Emergency Medical Condition: Yes Medical Record Reviewed: Yes Interpretation(s) CBC & BMP Diagram 02/01/18 22:15 Total Protein 8.3 H, Albumin 3.5, Calcium Level 9.1 #, Magnesium Level 1.6, Alkaline Phosphatase 73, Aspartate Amino Transf (AST/SGOT) 22, Alanine Aminotransferase (ALT/SGPT) 22, Total Bilirubin 0.9 Vital Signs Date Time Temp Pulse Resp B/P (MAP) Pulse Ox O2 Delivery O2 Flow Rate FiO2 02/01/18 22:46 98 18 108/53 (71) 95 Room Air 02/01/18 21:59 94 Room Air 02/01/18 21:59 94 Room Air 02/01/18 21:25 18 02/01/18 20:36 101.0 104 18 147/67 (93) 94 troponin I: less than 0.02, not elevated EKG sinus rhythm rate 98 left anterior fascicular block LVH by voltage criteria and lateral and septal ST-T changes/T-wave inversion concerning for ischemia UA: LA: 1.1, not elevated Differential Diagnosis UTI, sepsis, pneumonia Narrative Course 87-year-old male with fever shaking chill tachycardia weakness recent evaluation for UTI 1 day of antibiotic presenting with worsening symptoms this evening IV access obtained specimens collected and sent for resulting additional antibiotic Zosyn administered as patient has only taken 2 doses of Cipro today. Patient given acetaminophen. Patient resting comfortably at this time remains normotensive attempted 500 cc bolus of normal saline which he has tolerated will be given additional liter bolus No urine output urinary catheter specimen collected Plan for admission/obs for IV antibiotics --responding well to IV fluid bolus; rec'd iv antibiotics--OBS to [facility] service per Dr [place] Sepsis Criteria SIRS Criteria (2 or more): Temp > 100.9 or < 96.8, Heart rate over 90 Sepsis Criteria (SIRS+source): Infect source susp/known (urine) Physician Communication Physician Communication discussed with [facility] service Diagnosis Primary Impression: UTI (urinary tract infection) Additional Impression: SIRS (systemic inflammatory response syndrome) Admitting Information Admitting Physician Requests: Observation She Giles MD Feb 01, 2018 21:40
[2018-02-01 21:59] VITALS: O2SAT 94
[2018-02-01] MEDS ORDERED: CARV6.252 PO (22:06)
[2018-02-01] MEDS ORDERED: HYDR-3801 PO (22:06)
--- NOTE | 2018-02-01 22:09 | RADRPT ---
EXAM DATE/TIME: 02/01/2018 21:44 [facility] COMPARISON: CT ABDOMEN & PELVIS W/O CONTRAST, October 14, 2017, 18:49. CHEST SINGLE AP, January 10, 2017, 16:1 9. INDICATIONS : Fever. Cough and congestion. MEDICAL HISTORY : Hypertension. Myocardial infarction. Cerebrovascular disease. Congestive heart failure. Diabete s. SURGICAL HISTORY : None. ENCOUNTER: Initial ACUITY: 1 week PAIN SCORE: 0/10 LOCATION: Bilateral chest FINDINGS: Very mild atelectasis at both bases. No pneumonia seen. No pleural effusion or pneumothorax. Aortic v alve stent again noted. Heart size stable, upper limits of normal. CONCLUSION: Trace bibasilar atelectasis. Alex Arellano MD on February 01, 2018 at 22:06 Board Certified Radiologist. This report was verified electronically.
[2018-02-01 22:31] LABS: AUTOMATED NEUTROPHIL # 7.9 TH/MM3 (1.8-7.7); BASOPHIL % 0.5 % (0.0-2.0); EOSINOPHIL % 0.4 % (0.0-4.0); HEMATOCRIT 39.6 % (39.0-51.0); HEMOGLOBIN 13.1 GM/DL (13.0-17.0); LYMPH % 6.3 % (9.0-44.0); LYMPHOCYTE # 0.6 TH/MM3 (1.0-4.8); MEAN CELL VOLUME 89.6 FL (80.0-100.0); MEAN CORPUSCULAR HEMOGLOBIN 29.6 PG (27.0-34.0); MEAN PLATELET VOLUME 7.4 FL (7.0-11.0); MONOCYTE # 0.7 TH/MM3 (0-0.9); NEUT % 84.8 % (16.0-70.0); PLATELET COUNT 149 TH/MM3 (150-450); RED BLOOD COUNT 4.42 MIL/MM3 (4.50-5.90); RED CELL DISTRIBUTION WIDTH 15.7 % (11.6-17.2); WHITE BLOOD COUNT 9.2 TH/MM3 (4.0-11.0)
[2018-02-01 22:42] LABS: CHLORIDE 100 MEQ/L (98-107); SODIUM (NA) 132 MEQ/L (136-145)
[2018-02-01 22:46] VITALS: BP 108/53; PULSE 98; RESP 18; O2SAT 95
[2018-02-01 22:46] LABS: CALCIUM 9.1 MG/DL (8.5-10.1); INTERNATIONAL NORMALIZED RATIO 1.3 RATIO; PROTHROMBIN TIME - PATIENT 12.9 SEC (9.8-11.6)
[2018-02-01 22:47] LABS: ALBUMIN 3.5 GM/DL (3.4-5.0); BLOOD UREA NITROGEN 28 MG/DL (7-18); GLUCOSE,RANDOM 107 MG/DL (74-106); MAGNESIUM 1.6 MG/DL (1.5-2.5)
[2018-02-01 22:49] LABS: ALT (GPT) 22 U/L (12-78); AST (GOT) 22 U/L (15-37)
[2018-02-01 22:50] LABS: GLOMERULAR FILTRATION RATE 34 ML/MIN (>89)
[2018-02-01 22:51] LABS: TOTAL BILIRUBIN ADULT 0.9 MG/DL (0.2-1.0); TOTAL PROTEIN 8.3 GM/DL (6.4-8.2)
[2018-02-01 22:52] LABS: ALKALINE PHOSPHATASE 73 U/L (45-117)
[2018-02-01 22:55] LABS: TROPONIN I 0.02 NG/ML (0.02-0.05)
--- NOTE | 2018-02-01 23:30 | RADRPT ---
EXAM DATE/TIME: 02/01/2018 23:05 [facility] COMPARISON: CT ABDOMEN & PELVIS W/O CONTRAST, October 14, 2017, 18:49. INDICATIONS : Abdomen pain. ORAL CONTRAST: No oral contrast ingested. RADIATION DOSE: 20.51 CTDIvol (mGy) MEDICAL HISTORY : Cerebrovascular disease. Cardiovascular disease Hypertension.Diabetes SURGICAL HISTORY : Carotid endarterectomy. Colon resection.Discectomy, lumbar.Valve replacement IVC filter ENCOUNTER: Initial ACUITY: 1 day PAIN SCALE: 5/10 LOCATION: Bilateral abdomen TECHNIQUE: Volumetric scanning of the abdomen and pelvis was performed. Using automated exposure control and ad justment of the mA and/or kV according to patient size, radiation dose was kept as low as reasonably achievable to obtain optimal diagnostic quality images. DICOM format image data is available electro nically for review and comparison. FINDINGS: LOWER LUNGS: Areas of scarring involving both lung bases. Stent mounted aortic valve. Significant coronary artery atherosclerotic calcifications. LIVER: Homogeneous density without lesion. There is no dilation of the biliary tree. A small solitary calci fied gallstone within an otherwise normal-appearing gallbladder. SPLEEN: Normal size without lesion. PANCREAS: Within normal limits. KIDNEYS: Normal in size and shape. There is no mass, stone, or hydronephrosis. Small bilateral renal cysts. ADRENAL GLANDS: Within normal limits. VASCULAR: There is no aortic aneurysm. An IVC filter noted. BOWEL/MESENTERY: The stomach, small bowel, and colon demonstrate no acute abnormality. There is no free intraperitone al air or fluid. ABDOMINAL WALL: Prior ventral hernia repair utilizing mesh. No recurrent hernia observed. RETROPERITONEUM: The prostate gland is enlarged. No discrete mass. BLADDER: No wall thickening or mass. REPRODUCTIVE: Within normal limits. INGUINAL: There is no lymphadenopathy. Left renal hernia containing fat. MUSCULOSKELETAL: Within normal limits for patient age. CONCLUSION: 1. No acute abnormality to explain the patient's pain. 2. Cholelithiasis. Andre Valladares Jr., MD on February 01, 2018 at 23:25 Board Certified Radiologist. This report was verified electronically.
[2018-02-01] MEDS ORDERED: SODIUM CHLOR 0.9% 1000 ML INJ 1,000 ML IV ONE (23:45)
[2018-02-01 23:48] VITALS: TEMP 98.9
[2018-02-02] VITALS (12 sets, daily range): BP systolic 100–194; BP diastolic 51–93; PULSE 54–125; RESP 14–22; TEMP 96.9–104.6; O2SAT 93–98
[2018-02-02 00:40] LABS: BILIRUBIN, URINE NEG (NEG); BLOOD, URINE NEG (NEG); GLUCOSE,URINE NEG (NEG); KETONE, URINE NEG (NEG); NITRITE,URINE NEG (NEG); URINE COLOR YELLOW (YELLW/STRAW); URINE LEUKOCYTE ESTERASE SMALL (NEG)
[2018-02-02 00:58] LABS: MUCUS URINE OCC /lpf (OCC); SQUAMOUS EPITHELIAL CELL URINE 0-5 /hpf (0-5)
[2018-02-02 00:59] LABS: AMORPHOUS SEDIMENT, URINE SMALL; WHITE BLOOD CELL CLUMPS OCC
[2018-02-02] MEDS ORDERED: NALOXONE HCL 0.4 MG/ML AMP IV PUSH PRN (01:15)
[2018-02-02] MEDS ORDERED: SODIUM CHLORIDE 0.9% FLUSH 10 ML FLUSH IV FLUSH PRN (01:15)
[2018-02-02] MEDS ORDERED: PIPERACIL-TAZO 3.375 GM PREMIX 50 ML IV SCH (03:00)
[2018-02-02] MEDS: ACETAMINOPHEN 325 MG TAB PO PRN ×3 (04:38→17:10)
[2018-02-02] MEDS ORDERED: DEXTROSE 50% IN WATER 50 ML VIAL(D50) IV PUSH PRN (08:00)
[2018-02-02] MEDS ORDERED: GLUCAGON 1 MG/ML VIAL OTHER PRN (08:00)
[2018-02-02 08:19] LABS: AUTOMATED NEUTROPHIL # 8.6 TH/MM3 (1.8-7.7); BASOPHIL % 0.2 % (0.0-2.0); HEMATOCRIT 34.1 % (39.0-51.0); HEMOGLOBIN 11.2 GM/DL (13.0-17.0); LYMPH % 4.3 % (9.0-44.0); LYMPHOCYTE # 0.4 TH/MM3 (1.0-4.8); MEAN CELL VOLUME 89.9 FL (80.0-100.0); MEAN CORPUSCULAR HEMOGLOBIN 29.4 PG (27.0-34.0); MEAN CORPUSCULAR HGB CONC 32.7 % (32.0-36.0); MEAN PLATELET VOLUME 7.2 FL (7.0-11.0); MONO % 7.2 % (0.0-8.0); MONOCYTE # 0.7 TH/MM3 (0-0.9); NEUT % 88.3 % (16.0-70.0); PLATELET COUNT 120 TH/MM3 (150-450); RED CELL DISTRIBUTION WIDTH 15.2 % (11.6-17.2); WHITE BLOOD COUNT 9.7 TH/MM3 (4.0-11.0)
[2018-02-02] MEDS: INSULIN ASPART SUPPLEMENTAL SCALE SQ SCH ×4 (08:27→21:00)
[2018-02-02 08:35] LABS: BICARBONATE 22.6 MEQ/L (21.0-32.0); CALCIUM 8.1 MG/DL (8.5-10.1); CREATININE 1.9 MG/DL (0.60-1.30)
[2018-02-02] MEDS: SODIUM CHLORIDE 0.9% FLUSH 10 ML FLUSH IV FLUSH SCH ×2 (09:00→22:10)
[2018-02-02] MEDS ORDERED: ASPIRIN 81 MG CHEW TAB CHEW ONE (09:00)
--- NOTE | 2018-02-02 09:06 | HHI.HP ---
HPI Service [facility] Primary Care Physician Pablo Brian MD Admission Diagnosis sirs; uti Diagnoses: (1) Flu (2) SIRS (systemic inflammatory response syndrome) (3) UTI (urinary tract infection) (4) Sepsis Chief Complaint: Chills, nausea, dysuria, urinary retention with gross hematuria Travel History International Travel<30 Days: No Contact w/Intl Traveler <30 Da: No Traveled to Known Affected Are: No Sepsis Criteria SIRS Criteria (2 or more): Temp > 100.9 or < 96.8, Heart rate over 90 Sepsis Criteria (SIRS+source): Infect source susp/known History of Present Illness 87-year-old man with a history of BPH resented to the ED for evaluation of 1 week history of chills, urinary retention and dysuria with gross hematuria , and nausea with decreased intake 1 day. Patient states, he has call a urologist for gross hematuria and urinary retention for which his urologist was aware of previously, however yesterday with worsening symptoms of dysuria and urinary retention he was advised to see his PCP as his urologist was out of town. During his encounter with his PCP , patient reports symptoms of chills along with dysuria for which he was started on Cipro for presumed UTI and advised to seek medical attention at the nearest ED for worsening of symptoms. when patient presented to the ED he endorsed nausea as well as decrease appetite intake x 1 days along with abdominal pain. His vitals in the ED on admission were Temp 101, HR 104, BP 147/67 and 94%RA. Abdominal CT scan was unremarkable and chest x-ray did not reveal any pulmonary infiltrates. He has flu a antigen positive as well as abnormal UA. Review of Systems Except as stated in HPI: all other systems reviewed are Neg Past Family Social History Past Medical History Hypertension Coronary artery disease status post myocardial infarction and bypass surgery 2 BPH status post TURP Peripheral vascular disease status post carotid endarterectomy Osteoarthritis status post knee replacement Type 2 diabetes Chronic kidney disease History of valve replacement History of CVA 2 Past Surgical History bypass surgery 2 TURP carotid endarterectomy History of valve replacement knee replacement Reported Medications Carvedilol 6.25 Mg Tab 6.25 Mg PO BID Hydralazine (Hydralazine HCl) 100 Mg Tab 100 Mg PO BID Take with meals Nexium (Esomeprazole DR) 40 Mg Capdr 40 Mg PO DAILY Aspirin 81 Mg Chew 81 Mg CHEW ONCE Isosorbide Mononitrate ER (Isosorbide Mononitrate) 30 Mg Yvonne 30 Mg PO DAILY Glipizide 5 Mg Tab 5 Mg PO DAILY Take 30 minutes before a meal Eliquis (Apixaban) 5 Mg Tab 5 Mg PO BID Atorvastatin (Atorvastatin Calcium) 80 Mg Tab 80 Mg PO HS Allergies: Coded Allergies: Sulfa (Sulfonamide Antibiotics) (Verified Allergy, Unknown, UNKNOWN, ) iodine (Verified Allergy, Unknown, 02/01/18) potassium iodide (Verified Allergy, Unknown, 02/01/18) povidone-iodine (Verified Allergy, Unknown, 02/01/18) sodium iodide (Verified Allergy, Unknown, 02/01/18) sodium iodide (Verified Allergy, Unknown, 02/01/18) Family History Family history positive for Diabetes Mellitus Social History History of tobaccoism quit 40 years ago. Physical Exam Vital Signs Vital Signs Date Time Temp Pulse Resp B/P (MAP) Pulse Ox O2 Delivery O2 Flow Rate FiO2 02/02/18 05:32 117 02/02/18 03:33 104.6 20 164/71 (102) 95 02/02/18 03:04 101.6 113 22 194/93 (126) 93 02/02/18 02:33 105 16 150/90 (110) 97 Nasal Cannula 2.00 02/02/18 01:34 90 16 127/61 (83) 96 Nasal Cannula 2.00 02/02/18 00:09 88 16 144/65 (91) 98 Nasal Cannula 2.00 02/01/18 23:48 98.9 02/01/18 22:46 98 18 108/53 (71) 95 Room Air 02/01/18 21:59 94 Room Air 02/01/18 21:59 94 Room Air 02/01/18 21:25 18 02/01/18 20:36 101.0 104 18 147/67 (93) 94 Physical Exam GENERAL: This is a well-nourished, well-developed patient, in no apparent distress. SKIN: No rashes, ecchymoses or lesions. Cool and dry. HEAD: Atraumatic. Normocephalic. No temporal or scalp tenderness. EYES: Pupils equal round and reactive. Extraocular motions intact. No scleral icterus. No injection or drainage. ENT: Nose without bleeding, purulent drainage or septal hematoma. Throat without erythema, tonsillar hypertrophy or exudate. Uvula midline. Airway patent. NECK: Trachea midline. No JVD or lymphadenopathy. Supple, nontender, no meningeal signs. CARDIOVASCULAR: Regular rate and rhythm without murmurs, gallops, or rubs. RESPIRATORY: Clear to auscultation. Breath sounds equal bilaterally. No wheezes , rales, or rhonchi. GASTROINTESTINAL: Abdomen soft, non-tender, nondistended. No hepato-splenomegaly , or palpable masses. No guarding. MUSCULOSKELETAL: Extremities without clubbing, cyanosis, or edema. No joint tenderness, effusion, or edema noted. No calf tenderness. Negative Homans sign bilaterally. NEUROLOGICAL: Awake and alert. Cranial nerves II through XII intact. Motor and sensory grossly within normal limits. Five out of 5 muscle strength in all muscle groups. Normal speech. Laboratory Laboratory Tests Test 02/01/18 22:15 02/02/18 00:22 02/02/18 07:05 White Blood Count 9.2 9.7 Red Blood Count 4.42 3.80 Hemoglobin 13.1 11.2 Hematocrit 39.6 34.1 Mean Corpuscular Volume 89.6 89.9 Mean Corpuscular Hemoglobin 29.6 29.4 Mean Corpuscular Hemoglobin Concent 33.0 32.7 Red Cell Distribution Width 15.7 15.2 Platelet Count 149 120 Mean Platelet Volume 7.4 7.2 Neutrophils (%) (Auto) 84.8 88.3 Lymphocytes (%) (Auto) 6.3 4.3 Monocytes (%) (Auto) 8.0 7.2 Eosinophils (%) (Auto) 0.4 0.0 Basophils (%) (Auto) 0.5 0.2 Neutrophils # (Auto) 7.9 8.6 Lymphocytes # (Auto) 0.6 0.4 Monocytes # (Auto) 0.7 0.7 Eosinophils # (Auto) 0.0 0.0 Basophils # (Auto) 0.0 0.0 CBC Comment DIFF FINAL DIFF FINAL Differential Comment Prothrombin Time 12.9 Prothromb Time International Ratio 1.3 Activated Partial Thromboplast Time 31.1 Blood Urea Nitrogen 28 30 Creatinine 1.90 1.90 Random Glucose 107 105 Total Protein 8.3 Albumin 3.5 Calcium Level 9.1 8.1 Magnesium Level 1.6 Alkaline Phosphatase 73 Aspartate Amino Transf (AST/SGOT) 22 Alanine Aminotransferase (ALT/SGPT) 22 Total Bilirubin 0.9 Sodium Level 132 136 Potassium Level 4.4 3.9 Chloride Level 100 102 Carbon Dioxide Level 24.0 22.6 Anion Gap 8 11 Estimat Glomerular Filtration Rate 34 34 Lactic Acid Level 1.1 Total Creatine Kinase 96 Troponin I 0.02 Lipase 184 Urine Collection Type CATH Urine Color YELLOW Urine Turbidity SL CLOUDY Urine pH 6.0 Urine Specific [place] 1.020 Urine Protein 30 Urine Glucose (UA) NEG Urine Ketones NEG Urine Occult Blood NEG Urine Nitrite NEG Urine Bilirubin NEG Urine Urobilinogen 1.0 Urine Leukocyte Esterase SMALL Urine RBC 4-9 Urine WBC 25-49 Urine WBC Clumps OCC Urine Squamous Epithelial Cells 0-5 Urine Amorphous Sediment SMALL Urine Mucus OCC Microscopic Urinalysis Comment CATH-CULTURE IND Date/Time Source Procedure Growth Status 02/01/18 22:20 Blood Peripheral Aerobic Blood Culture Pending Received 02/01/18 22:20 Blood Peripheral Anaerobic Blood Culture Pending Received 02/02/18 01:05 Nasal Washing Influenza Types A,B Antigen (CLIFF) - Final Positive For Flu A Antigen Complete 02/02/18 00:22 Urine Catheterized Urine Urine Culture Pending Received Result Diagram: 02/02/18 0705 02/02/18 0705 Imaging Last Impressions Chest X-Ray 02/01/182128 Signed Impressions: Service Date/Time: Thursday, February 01, 2018 21:44 - CONCLUSION: Trace bibasilar atelectasis. Alex Arellano MD Abdomen/Pelvis CT 02/01/182128 Signed Impressions: Service Date/Time: Thursday, February 01, 2018 23:05 - CONCLUSION: 1. No acute abnormality to explain the patient's pain. 2. Cholelithiasis. Andre Valladares Jr., MD Septic Shock Reassessment Septic shock perfusion: reassessment completed Caprini VTE Risk Assessment Caprini VTE Risk Assessment: Mod/High Risk (score >= 2) Caprini Risk Assessment Model Point Value = 1 Point Value = 2 Point Value = 3 Point Value = 5 Age 41-60 Minor surgery BMI > 25 kg/m2 Swollen legs Varicose veins or History of unexplained or recurrent spontaneous Oral contraceptives or hormone replacement Sepsis (< 1 month) Serious lung disease, including pneumonia (< 1 month) Abnormal pulmonary function Acute myocardial infarction Congestive heart failure (< 1 month) History of inflammatory bowel disease Medical patient at bed rest Age 61-74 Arthroscopic surgery Major open surgery (> 45 min) Laparoscopic surgery (> 45 min) Malignancy Confined to bed (> 72 hours) Immobilizing plaster cast Central venous access Age >= 75 History of VTE Family history of VTE Factor V Leiden Prothrombin [id number] Lupus anticoagulant Anticardiolipin antibodies Elevated serum homocysteine Heparin-induced thrombocytopenia Other congenital or acquired thrombophilia Stroke (< 1 month) Elective arthroplasty Hip, pelvis, or leg fracture Acute spinal cord injury (< 1 month) Prophylaxis Regimen Total Risk Factor Score Risk Level Prophylaxis Regimen 0-1 Low Early ambulation 2 Moderate Order ONE of the following: *Sequential Compression Device (SCD) *Heparin 5000 units SQ BID 3-4 Higher Order ONE of the following medications: *Heparin 5000 units SQ TID *Enoxaparin/Lovenox 40 mg SQ daily (WT < 150 kg, CrCl > 30 mL/min) *Enoxaparin/Lovenox 30 mg SQ daily (WT < 150 kg, CrCl > 10-29 mL/min) *Enoxaparin/Lovenox 30 mg SQ BID (WT < 150 kg, CrCl > 30 mL/min) AND/OR *Sequential Compression Device (SCD) 5 or more Highest Order ONE of the following medications: *Heparin 5000 units SQ TID (Preferred with Epidurals) *Enoxaparin/Lovenox 40 mg SQ daily (WT < 150 kg, CrCl > 30 mL/min) *Enoxaparin/Lovenox 30 mg SQ daily (WT < 150 kg, CrCl > 10-29 mL/min) *Enoxaparin/Lovenox 30 mg SQ BID (WT < 150 kg, CrCl > 30 mL/min) AND *Sequential Compression Device (SCD) Assessment and Plan Problem List: (1) SIRS (systemic inflammatory response syndrome) ICD Code: R65.10 - Systemic inflammatory response syndrome (SIRS) of non- infectious origin without acute organ dysfunction Status: Acute (2) UTI (urinary tract infection) ICD Code: N39.0 - Urinary tract infection, site not specified Status: Acute (3) Flu ICD Code: J11.1 - Influenza due to unidentified influenza virus with other respiratory manifestations (4) Sepsis ICD Code: A41.9 - Sepsis, unspecified organism Status: Acute Assessment and Plan 87-year-old man with Sepsis : Meets SIRS Temp > 100.9 or < 96.8, Heart rate over 90 patient with Abnormal UA and positive Flu A antigen Chest x-ray noted and reviewed by me without any pulmonary infiltrate Treated with Zosyn IV , Will Start Rocephin IV Q day pending Culture reports Treat Influenza Per protocol Abnormal UA S/p Zosyn IV , start Rocephin IV Q day pending Urine culture report Flu A Continue with Tamiflu 75 mg BID X 5 days Abdominal pain and nausea CT abdomen noted and reviewed by me without any significant finding Symptoms of nausea resolved since admission. Diabetes type 2 Hold oral hypoglycemic agent secondary to creatinine of 1.9 Start Medium ISS with FSBG monitoring History of valve replacement, CAD Resume4 Eliquis, ASA,Imdur Hypertension Labile BP Resume Hydralazine, Coreg Hyperlipidemia Resume Lipitor HS History of CKD stage III Creatinine currently at his baseline, continue to monitor and avoid all nephrotoxic DVT prophylaxis:Eliquis PT consult to treat and eval Change admission to inpatient Code Status Full code Discussed Condition With Patient Physician Certification 2 Midnight Certification Type: Admission for Inpatient Services Order for Inpatient Services The services are ordered in accordance with Medicare regulations or non- Medicare payer requirements, as applicable. In the case of services not specified as inpatient-only, they are appropriately provided as inpatient services in accordance with the 2-midnight benchmark. Estimated LOS (days): 2 days is the estimated time the patient will need to remain in the hospital, assuming treatment plan goals are met and no additional complications. Post-Hospital Plan: Not yet determined Garth Schwartz MD Feb 02, 2018 09:06
[2018-02-02] MEDS: OSELTAMIVIR PHOSPHATE 75 MG CAP PO SCH ×2 (10:10→22:09)
[2018-02-02] MEDS: CARVEDILOL 6.25 MG TAB PO SCH ×2 (10:10→22:09)
[2018-02-02] MEDS: hydrALAZINE HCL 50 MG TAB PO SCH ×2 (10:10→22:09)
[2018-02-02] MEDS: ISOSORBIDE MONONITRATE 30 MG CR TAB (IMDUR) PO SCH (10:10)
[2018-02-02] MEDS: APIXABAN 5 MG TABLET PO SCH ×2 (10:10→22:10)
[2018-02-02] MEDS: PANTOPRAZOLE SOD 40 MG DELAYED RELEASE TAB PO SCH (10:10)
[2018-02-02] MEDS: cefTRIAXone INJ 1,000 MG in SODIUM CHLORIDE 0.9% INJ 100 ML IV SCH (10:11)
[2018-02-02] MEDS ORDERED: ONDANSETRON HCL 4 MG/2 ML VIAL IV PUSH PRN (12:00)
[2018-02-02] MEDS: ATORVASTATIN 40 MG TAB PO SCH (22:09)
--- NOTE | 2018-02-02 23:32 | EKG ---
Date Performed: 02/01/2018 Time Performed: 21:56:29 PTAGE: 87 years EKG: Sinus rhythm LEFT ANTERIOR FASCICULAR BLOCK LEFT VENTRICULAR HYPERTROPHY AND ST-T CHANGE ABNORMAL ECG PREVIOUS TRACING : 01/10/2017 16.00 Since the previous tracing, no significant change noted DOCTOR: Warren Santiago Interpretating Date/Time 02/02/2018 23:31:03
[2018-02-03] MEDS: ACETAMINOPHEN 325 MG TAB PO PRN (00:10)
[2018-02-03 04:00] VITALS: BP 101/53; PULSE 86; RESP 18; TEMP 97.8; O2SAT 94
[2018-02-03] MEDS: ISOSORBIDE MONONITRATE 30 MG CR TAB (IMDUR) PO SCH (06:21)
[2018-02-03 06:54] LABS: AUTOMATED NEUTROPHIL # 6.7 TH/MM3 (1.8-7.7); BASOPHIL % 0.2 % (0.0-2.0); EOSINOPHIL % 0.2 % (0.0-4.0); HEMATOCRIT 32.4 % (39.0-51.0); HEMOGLOBIN 10.4 GM/DL (13.0-17.0); LYMPH % 11.7 % (9.0-44.0); LYMPHOCYTE # 0.9 TH/MM3 (1.0-4.8); MEAN CELL VOLUME 88.2 FL (80.0-100.0); MEAN CORPUSCULAR HEMOGLOBIN 28.2 PG (27.0-34.0); MEAN PLATELET VOLUME 7.2 FL (7.0-11.0); MONO % 5.6 % (0.0-8.0); MONOCYTE # 0.5 TH/MM3 (0-0.9); NEUT % 82.3 % (16.0-70.0); PLATELET COUNT 118 TH/MM3 (150-450); RED BLOOD COUNT 3.68 MIL/MM3 (4.50-5.90); RED CELL DISTRIBUTION WIDTH 15.5 % (11.6-17.2); WHITE BLOOD COUNT 8.1 TH/MM3 (4.0-11.0)
[2018-02-03 06:56] LABS: BICARBONATE 26.5 MEQ/L (21.0-32.0); CALCIUM 7.5 MG/DL (8.5-10.1)
[2018-02-03 07:00] LABS: CREATININE 2.4 MG/DL (0.60-1.30)
[2018-02-03 07:50] VITALS: BP 112/56; PULSE 86; RESP 20; TEMP 97; O2SAT 97
[2018-02-03] MEDS: INSULIN ASPART SUPPLEMENTAL SCALE SQ SCH ×4 (08:00→20:54)
[2018-02-03] MEDS ORDERED: VANCOMYCIN INJ 1,000 MG in SODIUM CHLOR 0.9% 250 ML INJ 250 ML IV SCH (09:30)
[2018-02-03] MEDS ORDERED: Vancomycin Consult Pharmacy 1 EA OTHER SCH (09:30)
--- NOTE | 2018-02-03 09:30 | HHI.PR ---
Subjective Remarks Follow-up SIRS, Flu A+ and now bacteremia 02/03/18-patient seen and examined, continue to spike fever.1#4 BC positive. However patient states he is doing much better since admission. Objective Vitals Vital Signs Date Time Temp Pulse Resp B/P (MAP) Pulse Ox O2 Delivery O2 Flow Rate FiO2 02/03/18 04:00 97.8 86 18 101/53 (69) 94 02/02/18 23:15 100.7 125 22 108/56 (73) 95 02/02/18 21:07 99.5 78 20 133/58 (83) 97 02/02/18 20:15 75 02/02/18 16:01 99.7 88 16 100/55 (70) 95 02/02/18 12:00 101.3 94 20 106/51 (69) 94 I/O 02/02/18 02/02/18 02/02/18 02/03/18 02/03/18 02/03/18 07:00 15:00 23:00 07:00 15:00 23:00 Intake Total 1700 ml 340 ml 200 ml 120 ml Output Total 800 ml 300 ml 400 ml Balance 900 ml 340 ml -100 ml -280 ml Intake Oral 240 ml 200 ml 120 ml IV Total 1700 ml 100 ml Output Urine Total 800 ml 300 ml 400 ml # Voids 5 6 5 # Bowel Movements 1 5 Result Diagram: 02/03/18 0640 02/03/18 0640 Imaging Last Impressions Chest X-Ray 02/01/182128 Signed Impressions: Service Date/Time: Thursday, February 01, 2018 21:44 - CONCLUSION: Trace bibasilar atelectasis. Alex Arellano MD Abdomen/Pelvis CT 02/01/182128 Signed Impressions: Service Date/Time: Thursday, February 01, 2018 23:05 - CONCLUSION: 1. No acute abnormality to explain the patient's pain. 2. Cholelithiasis. Andre Valladares Jr., MD Objective Remarks GENERAL: NAD SKIN: Warm and dry. HEAD: Normocephalic. EYES: No scleral icterus. No injection or drainage. NECK: Supple, trachea midline. No JVD or lymphadenopathy. CARDIOVASCULAR: Regular rate and rhythm without murmurs, gallops, or rubs. RESPIRATORY: Breath sounds equal bilaterally. No accessory muscle use. GASTROINTESTINAL: Abdomen soft, non-tender, nondistended. MUSCULOSKELETAL: No cyanosis, or edema. BACK: Nontender without obvious deformity. No CVA tenderness. A/P Problem List: (1) SIRS (systemic inflammatory response syndrome) ICD Code: R65.10 - Systemic inflammatory response syndrome (SIRS) of non- infectious origin without acute organ dysfunction Status: Acute (2) UTI (urinary tract infection) ICD Code: N39.0 - Urinary tract infection, site not specified Status: Acute (3) Flu ICD Code: J11.1 - Influenza due to unidentified influenza virus with other respiratory manifestations (4) Gram-positive bacteremia ICD Code: R78.81 - Bacteremia (5) Acute kidney injury superimposed on chronic kidney disease ICD Code: S37.009A - Unspecified injury of unspecified kidney, initial encounter; N18.9 - Chronic kidney disease, unspecified Status: Acute (6) Sepsis ICD Code: A41.9 - Sepsis, unspecified organism Status: Acute Assessment and Plan 87-year-old man with Gram-positive bacteremia 1#4 blood culture positive Repeat blood culture Start vancomycin IV Consult infectious disease specialist Sepsis : Meets SIRS Temp > 100.9 or < 96.8, Heart rate over 90 patient with Abnormal UA and positive Flu A antigen Chest x-ray without any pulmonary infiltrate Treated with Zosyn IV , On Rocephin IV Q day Treat Influenza Per protocol Abnormal UA S/p Zosyn IV , currently on Rocephin IV Q day pending Urine culture report Flu A Continue with Tamiflu 75 mg BID X 5 days Abdominal pain and nausea CT abdomen noted and reviewed by me without any significant finding Symptoms of nausea resolved since admission. Diabetes type 2 Hold oral hypoglycemic agent secondary to creatinine of 1.9 Continue Medium ISS with FSBG monitoring History of valve replacement, CAD Resume4 Eliquis, ASA,Imdur Hypertension Low BP Hold Hydralazine, Coreg Hyperlipidemia Continue Lipitor HS Acute superimposed on CKD stage III Start Gentle IV fluid hydration Monitor BUN and creatinine DVT prophylaxis:Garth Camacho MD Feb 03, 2018 09:30
[2018-02-03] MEDS: hydrALAZINE HCL 50 MG TAB PO SCH ×2 (10:47→20:51)
[2018-02-03] MEDS: PANTOPRAZOLE SOD 40 MG DELAYED RELEASE TAB PO SCH (10:47)
[2018-02-03] MEDS: APIXABAN 5 MG TABLET PO SCH ×2 (10:48→20:52)
[2018-02-03] MEDS: CARVEDILOL 6.25 MG TAB PO SCH ×2 (10:48→20:51)
[2018-02-03] MEDS: OSELTAMIVIR PHOSPHATE 75 MG CAP PO SCH ×2 (10:48→20:52)
[2018-02-03] MEDS: SODIUM CHLORIDE 0.9% FLUSH 10 ML FLUSH IV FLUSH SCH ×2 (10:49→20:49)
[2018-02-03] MEDS: SODIUM CHLOR 0.9% 1000 ML INJ 1,000 ML IV SCH ×2 (10:52→16:12)
[2018-02-03] MEDS: cefTRIAXone INJ 1,000 MG in SODIUM CHLORIDE 0.9% INJ 100 ML IV SCH (10:55)
[2018-02-03] MEDS ORDERED: VANCOMYCIN INJ 2,000 MG in SODIUM CHLORID 0.9% 500 ML INJ 500 ML IV ONE (11:00)
[2018-02-03 11:50] VITALS: BP 124/57; PULSE 89; RESP 20; TEMP 99.1; O2SAT 96
[2018-02-03 15:50] VITALS: BP 118/57; PULSE 93; RESP 20; TEMP 100.3; O2SAT 95
--- NOTE | 2018-02-03 18:59 | MB ---
cc: Ryan Cm MD,Garth MOSS DATE OF CONSULT: 02/03/2018 REQUESTING PHYSICIAN: Dr. Singh. REASON FOR CONSULTATION: An 87-year-old male admitted with SIRS, flu A and now aggressive Gram-positive bacteremia. HISTORY OF PRESENT ILLNESS: This is an 87-year-old white male who presented to the Emergency Department with fever and chills. The patient also was noted to have generalized weakness and nausea. He was started on ciprofloxacin by his primary care physician when he presented with urinary tract symptoms. He reportedly was having some blood in the urine and he tried to get an appointment with his urologist, but could not do so and therefore he saw his primary care physician who put him on the ciprofloxacin. After taking 2 doses, the patient came to the Emergency Department for evaluation. The patient tells me that he has had occasional chills for the past 2 weeks. He was evaluated in the Emergency Department and a temperature was normal and his white blood cell count was also normal. Urinalysis was remarkable for elevated white cells. Urine culture and blood cultures were taken. Urine culture is pending. Blood culture has growth of MRSA in one set and a second set has Gram-positive cocci. He was admitted and started on IV antibiotics. Testing for influenza A came back positive as well. The patient has acute kidney disease on top of chronic kidney disease. He states that he was extremely weak yesterday and had to be assisted to get to the bathroom. Today, he feels a little stronger, but still has profound weakness. Temperature afy to 104 degrees on 02/02/2018 and has gradually decreased. Last maximum temperature was 100.7 yesterday evening. The patient states that his last procedure performed on him was a cystoscopy by his urologist 2 months ago. He denies cough with sputum production or shortness of breath. PAST MEDICAL HISTORY: Coronary artery disease, benign prostatic hypertrophy, diabetes mellitus type 2, osteoarthritis, peripheral vascular disease, history of carotid endarterectomy, history of coronary bypass graft surgery, hypertension, history of bovine heart valve replacement 2 years ago, TURP, bilateral knee replacements, aortic valve replacement 2 years ago. ALLERGIES: 1. SULFA. 2. IODINE. 3. POTASSIUM IODIDE. 4. POVIDONE IODINE. 5. SODIUM IODIDE. MEDICATIONS: Vancomycin, ceftriaxone, Lipitor, Tamiflu, Eliquis, Coreg, hydralazine, Imdur, Protonix and Tylenol p.r.n. SOCIAL HISTORY: No tobacco, no alcohol, no illicit drugs. The patient is a . His passed a year ago. FAMILY HISTORY: Noncontributory. REVIEW OF SYSTEMS: CONSTITUTIONAL: Significant for fever and chills. HEAD, EARS, EYES, NOSE AND THROAT: Denies difficulty with vision. No nasal bleeding. No difficulty swallowing or throat soreness. NECK: No neck swelling or pain. CARDIOVASCULAR: Denies palpitations or chest pain. RESPIRATORY: Denies cough or shortness of breath. GASTROINTESTINAL: Denies nausea, vomiting, abdominal pain or diarrhea. GENITOURINARY: Significant for urinary frequency. ENDOCRINE: Denies polyuria or polydipsia. HEMATOPOIETIC: Denies easy bruising. INTEGUMENTARY: No skin rash or itching. NEUROLOGIC: No problems with coordination. Generally weak. PSYCHIATRIC: No problems with depression. PHYSICAL EXAMINATION: GENERAL: This is a well-developed, well-nourished male, in no acute distress. He is awake and alert and oriented. VITAL SIGNS: Temperature 99.1, BP 124/57, respirations 20, heart rate 89. HEAD, EARS, EYES, NOSE AND THROAT: The head is atraumatic. Extraocular movements grossly intact. Pupils reactive to light. No icterus. Oropharynx: Moist mucosa without lesions. NECK: Supple without adenopathy. LUNGS: Decreased breath sounds throughout. HEART: Regular S1, S2 with a II/ systolic murmur at the left upper sternal border. ABDOMEN: Bowel sounds present, soft, no tenderness appreciated. Bowel sounds are diminished, however. RECTAL: Not performed. EXTREMITIES: No clubbing, cyanosis or edema. No nail bed splinter hemorrhages. SKIN: No rash. NEUROLOGIC: No gross focal findings. PSYCHIATRIC: The patient is calm and cooperative. LABORATORY DATA: WBC 8.1, platelets 118, hemoglobin 10.4, 82% neutrophils, 11% lymphocytes. Creatinine 2.40, BUN 38, estimated GFR 26, sodium 134. Liver function test normal. Urine culture pending. IMPRESSION: 1. Bacteremia due to methicillin-resistant Staphylococcus aureus in the patient who has had valve replacement with a bovine valve. 2. Abnormal urinalysis suggesting urinary tract infection and likely the source of the bacteremia. 3. Influenza A. 4. Acute kidney disease on top of previous chronic renal disease. RECOMMENDATIONS: 1. Continue the vancomycin. 2. Continue ceftriaxone. 3. Obtain 2-D echocardiogram to evaluate heart valve for potential infection. 4. Monitor renal function. 5. Monitor the sensitivity of the MRSA. 6. Follow clinical status. The patient appears stable at this time. I will follow his progress. Thank you for this consultation. MD ROXY Marrero/MARI , 06:00 PM , 06:57 PM
[2018-02-03 20:00] VITALS: BP 122/57; PULSE 91; RESP 18; TEMP 100; O2SAT 94
[2018-02-03] MEDS: ATORVASTATIN 40 MG TAB PO SCH (20:52)
[2018-02-04] VITALS: BP 111/53; PULSE 90; RESP 18; TEMP 98.9; O2SAT 94
[2018-02-04] MEDS: SODIUM CHLOR 0.9% 1000 ML INJ 1,000 ML IV SCH ×2 (02:11→15:25)
[2018-02-04 04:00] VITALS: BP 120/59; PULSE 84; RESP 18; TEMP 97.6; O2SAT 94
[2018-02-04] MEDS: ISOSORBIDE MONONITRATE 30 MG CR TAB (IMDUR) PO SCH (06:10)
[2018-02-04 07:25] LABS: BICARBONATE 24.3 MEQ/L (21.0-32.0)
[2018-02-04 08:00] VITALS: BP 110/56; PULSE 88; RESP 18; TEMP 98.9; O2SAT 93
[2018-02-04] MEDS: INSULIN ASPART SUPPLEMENTAL SCALE SQ SCH ×4 (08:00→20:41)
[2018-02-04] MEDS: cefTRIAXone INJ 1,000 MG in SODIUM CHLORIDE 0.9% INJ 100 ML IV SCH (08:46)
[2018-02-04] MEDS: hydrALAZINE HCL 50 MG TAB PO SCH ×2 (08:54→20:39)
[2018-02-04] MEDS: PANTOPRAZOLE SOD 40 MG DELAYED RELEASE TAB PO SCH (08:55)
[2018-02-04] MEDS: CARVEDILOL 6.25 MG TAB PO SCH ×2 (08:55→20:38)
[2018-02-04] MEDS: APIXABAN 5 MG TABLET PO SCH ×2 (08:55→20:38)
[2018-02-04] MEDS: OSELTAMIVIR PHOSPHATE 75 MG CAP PO SCH ×2 (08:55→20:38)
[2018-02-04] MEDS: SODIUM CHLORIDE 0.9% FLUSH 10 ML FLUSH IV FLUSH SCH ×2 (08:56→19:47)
--- NOTE | 2018-02-04 09:31 | PQ ---
Physician Query Response Document PATIENT: LISA PRICE : [id number] ADMIT DATE: 02/02/2018 9:31 AM DISCH DATE: RESPONDING PROVIDER #: Nava QUERY TEXT: CDS Clarification SEPSIS POA in the setting of UTI and Flu A treated with Tamiflu and Zosyn IV Rocephin IV Other explanation of clinical findings. Unable to determine (no explanation for clinical findings). The medical record reflects the following clinical findings, treatment, and risk factors. * Clinical Indicators T 101 HR 104 CHILLS Neutrophils 84.8% ABD PAIN * Risk Factors UTI on CIPRO prior to arrival / + Flu A antigen * Treatment Zosyn IV Rocephin IV IV fluid bolus x 2 The patient's Clinical Indicators include: Please clarify and document your clinical opinion in the progress notes and discharge summary includi ng the definitive and/or presumptive diagnosis (suspected or probable), related to the above clinical findings. Please include clinical findings supporting your diagnosis. Thank you, Elvira La CDS: Elvira La Patient Unit: [id number] Contact Number: CDS/RN ext. [phone] Room: [facility] Query created by: Elvira La on 02/02/2018 3:08 PM RESPONSE TEXT: Provider disagreed with this CDI query. see note Electronically signed by: Garth Schwartz MD 02/04/2018 9:27 AM
--- NOTE | 2018-02-04 09:33 | HHI.PR ---
Subjective Remarks Follow-up SIRS, Flu A+ and now bacteremia 02/03/18-patient seen and examined, continue to spike fever.1#4 BC positive. However patient states he is doing much better since admission. 02/04/18-patient seen and examined;Currently afebrile; states he did not have a good night sleep. +2BC; 2D echo pending Objective Vitals Vital Signs Date Time Temp Pulse Resp B/P (MAP) Pulse Ox O2 Delivery O2 Flow Rate FiO2 02/04/18 04:00 97.6 84 18 120/59 (79) 94 02/04/18 00:00 98.9 90 18 111/53 (72) 94 02/03/18 20:00 100.0 91 18 122/57 (78) 94 02/03/18 15:50 100.3 93 20 118/57 (77) 95 02/03/18 11:50 99.1 89 20 124/57 (79) 96 I/O 02/03/18 02/03/18 02/03/18 02/04/18 02/04/18 02/04/18 07:00 15:00 23:00 07:00 15:00 23:00 Intake Total 120 ml 602 ml 584 ml 1180 ml Output Total 400 ml 400 ml 200 ml Balance -280 ml 602 ml 184 ml 980 ml Intake Oral 120 ml 582 ml 180 ml IV Total 602 ml 2 ml 1000 ml Output Urine Total 400 ml 400 ml 200 ml # Voids 5 # Bowel Movements 5 0 0 Result Diagram: 02/03/18 0640 02/04/18 0540 Imaging Last Impressions Chest X-Ray 02/01/182128 Signed Impressions: Service Date/Time: Thursday, February 01, 2018 21:44 - CONCLUSION: Trace bibasilar atelectasis. Alex Arellano MD Abdomen/Pelvis CT 02/01/182128 Signed Impressions: Service Date/Time: Thursday, February 01, 2018 23:05 - CONCLUSION: 1. No acute abnormality to explain the patient's pain. 2. Cholelithiasis. Andre Valladares Jr., MD Objective Remarks GENERAL: NAD SKIN: Warm and dry. HEAD: Normocephalic. EYES: No scleral icterus. No injection or drainage. NECK: Supple, trachea midline. No JVD or lymphadenopathy. CARDIOVASCULAR: Regular rate and rhythm without murmurs, gallops, or rubs. RESPIRATORY: Breath sounds equal bilaterally. No accessory muscle use. GASTROINTESTINAL: Abdomen soft, non-tender, nondistended. MUSCULOSKELETAL: No cyanosis, or edema. BACK: Nontender without obvious deformity. No CVA tenderness. A/P Problem List: (1) SIRS (systemic inflammatory response syndrome) ICD Code: R65.10 - Systemic inflammatory response syndrome (SIRS) of non- infectious origin without acute organ dysfunction Status: Acute (2) UTI (urinary tract infection) ICD Code: N39.0 - Urinary tract infection, site not specified Status: Acute (3) Flu ICD Code: J11.1 - Influenza due to unidentified influenza virus with other respiratory manifestations (4) Gram-positive bacteremia ICD Code: R78.81 - Bacteremia (5) Acute kidney injury superimposed on chronic kidney disease ICD Code: S37.009A - Unspecified injury of unspecified kidney, initial encounter; N18.9 - Chronic kidney disease, unspecified Status: Acute (6) Sepsis ICD Code: A41.9 - Sepsis, unspecified organism Status: Acute Assessment and Plan 87-year-old man with Gram-positive bacteremia 2#4 blood culture positive Repeat blood culture NTD Continue vancomycin IV and Rocephin Appreciate input from infectious disease specialist 2D echo pending 02/04/18 Sepsis : Temp > 100.9 or < 96.8, Heart rate over 90 patient with Abnormal UA and positive Flu A antigen Chest x-ray without any pulmonary infiltrate Treated with Zosyn IV , On Rocephin IV Q day Treat Influenza Per protocol Abnormal UA Urine culture negative Flu A Continue with Tamiflu 75 mg BID X 5 days Abdominal pain and nausea-Resolved CT abdomen noted and reviewed by me without any significant finding Symptoms of nausea resolved since admission. Diabetes type 2 Continue to Hold oral hypoglycemic agent secondary to creatinine of 1.9 Continue Medium ISS with FSBG monitoring History of valve replacement, CAD Continue Eliquis, ASA,Imdur Hypertension Low BP Continue to Hold Hydralazine, Coreg Hyperlipidemia Continue Lipitor HS Acute superimposed on CKD stage III Renal indices improving Continue Gentle IV fluid hydration Monitor BUN and creatinine DVT prophylaxis:Garth Camacho MD Feb 04, 2018 09:33
[2018-02-04 10:20] LABS: RANDOM VANCOMYCIN 13.7 COMMENT
[2018-02-04 12:00] VITALS: BP 130/63; PULSE 87; RESP 16; TEMP 97.7; O2SAT 94
[2018-02-04] MEDS: VANCOMYCIN INJ 1,250 MG in SODIUM CHLOR 0.9% 250 ML INJ 250 ML IV SCH (15:27)
--- NOTE | 2018-02-04 15:32 | HHI.IDPN ---
Note Infectious Disease Note Patient says he feels weak. No longer having chills. Temperature is lower. Awake and alert. Notes that he is making a lot of urine. Blood culture on 02/01 has MRSA in both sets. Blood culture on 02/03 has no growth in 1 day. Urine culture has mixed bacteria. Patient denies nausea. Patient denies abdominal pain. He is on oxygen via nasal cannula. 2D echocardiogram result pending. 87-year-old white male who presented to the Emergency Department with fever and chills. The patient also was noted to have generalized weakness and nausea. He was started on ciprofloxacin by his primary care physician when he presented with urinary tract symptoms. He reportedly was having some blood in the urine and he tried to get an appointment with his urologist, but could not do so and therefore he saw his primary care physician who put him on the ciprofloxacin. After taking 2 doses, the patient came to the Emergency Department for evaluation. The patient reports that he has had occasional chills for the past 2 weeks. Temperature fay to 104 degrees on 02/02/2018 and has gradually decreased. Last maximum temperature was 100.7 yesterday evening. The patient states that his last procedure performed on him was a cystoscopy by his urologist 2 months ago. PAST MEDICAL HISTORY: Coronary artery disease, benign prostatic hypertrophy, diabetes mellitus type 2, osteoarthritis, peripheral vascular disease, history of carotid endarterectomy, history of coronary bypass graft surgery, hypertension, history of bovine aortic heart valve replacement 2 years ago, TURP, bilateral knee replacements. ALLERGIES: 1. SULFA. 2. IODINE. 3. POTASSIUM IODIDE. 4. POVIDONE IODINE. 5. SODIUM IODIDE. MEDICATIONS: Current Medications Medications (Trade) Dose Ordered Sig/Zenobia Route PRN Reason Start Time Stop Time Status Last Admin Dose Admin Sodium Chloride (NS Flush) 2 ml UNSCH PRN IV FLUSH FLUSH AFTER USING IV ACCESS 02/02/18 01:15 Sodium Chloride (NS Flush) 2 ml BID IV FLUSH 02/02/18 09:00 02/03/18 10:49 Naloxone HCl (Narcan Inj) 0.4 mg UNSCH PRN IV PUSH SEE LABEL COMMENTS 02/02/18 01:15 Oseltamivir Phosphate (Tamiflu) 75 mg BID PO 02/02/18 09:00 02/06/18 22:00 02/04/18 08:55 Acetaminophen (Tylenol) 650 mg Q4H PRN PO FEVER 02/02/18 04:00 02/03/18 00:10 Apixaban (Eliquis) 5 mg BID PO 02/02/18 09:00 02/04/18 08:55 Atorvastatin Calcium (Lipitor) 80 mg HS PO 02/02/18 21:00 02/03/18 20:52 Carvedilol (Coreg) 6.25 mg BID PO 02/02/18 09:00 02/04/18 08:55 Hydralazine HCl (Apresoline) 100 mg BID PO 02/02/18 09:00 02/04/18 08:54 Isosorbide Mononitrate (Imdur) 30 mg DAILY@0700 PO 02/02/18 09:00 02/04/18 06:10 Pantoprazole Sodium (Protonix) 40 mg DAILY PO 02/02/18 09:00 02/04/18 08:55 Ceftriaxone Sodium 1000 mg/ Sodium Chloride 100 ml @ 200 mls/hr Q24H IV 02/02/18 10:00 02/04/18 08:46 Dextrose (D50w (Vial) Inj) 50 ml UNSCH PRN IV PUSH HYPOGLYCEMIA-SEE COMMENTS 02/02/18 08:00 Glucagon (Glucagon Inj) 1 mg UNSCH PRN OTHER HYPOGLYCEMIA-SEE COMMENTS 02/02/18 08:00 Insulin Aspart (NovoLOG SUPPLEMENTAL SCALE) 1 ACHS SLIDING SCALE SQ 02/02/18 08:00 02/02/18 17:34 Ondansetron HCl (Zofran Inj) 4 mg Q6HR PRN IV PUSH NAUSEA OR VOMITING 02/02/18 12:00 02/02/18 12:13 Sodium Chloride 1,000 ml @ 84 mls/hr [id number] IV 02/03/18 08:00 02/04/18 02:11 Pharmacy Profile Note 0 ml @ 0 mls/hr UNSCH OTHER 02/03/18 09:30 Vancomycin HCl 1250 mg/Sodium Chloride 262.5 ml @ 250 mls/hr Q24H IV 02/04/18 13:00 Miscellaneous Information SPECIFIC LAB TO BE [facility]AME[facility]... ONCE ONCE .XX 02/06/18 00:45 02/06/18 00:46 OBJECTIVE: Vital Signs Date Time Temp Pulse Resp B/P (MAP) Pulse Ox O2 Delivery O2 Flow Rate FiO2 02/04/18 12:00 97.7 87 16 130/63 (85) 94 02/04/18 08:00 98.9 88 18 110/56 (74) 93 02/04/18 04:00 97.6 84 18 120/59 (79) 94 02/04/18 00:00 98.9 90 18 111/53 (72) 94 02/03/18 20:00 100.0 91 18 122/57 (78) 94 02/03/18 15:50 100.3 93 20 118/57 (77) 95 Laboratory Tests Test 02/03/18 06:40 White Blood Count 8.1 TH/MM3 Red Blood Count 3.68 MIL/MM3 Hemoglobin 10.4 GM/DL Hematocrit 32.4 % Mean Corpuscular Volume 88.2 FL Mean Corpuscular Hemoglobin 28.2 PG Mean Corpuscular Hemoglobin Concent 32.0 % Red Cell Distribution Width 15.5 % Platelet Count 118 TH/MM3 Mean Platelet Volume 7.2 FL Neutrophils (%) (Auto) 82.3 % Lymphocytes (%) (Auto) 11.7 % Monocytes (%) (Auto) 5.6 % Eosinophils (%) (Auto) 0.2 % Basophils (%) (Auto) 0.2 % Neutrophils # (Auto) 6.7 TH/MM3 Lymphocytes # (Auto) 0.9 TH/MM3 Monocytes # (Auto) 0.5 TH/MM3 Eosinophils # (Auto) 0.0 TH/MM3 Basophils # (Auto) 0.0 TH/MM3 CBC Comment DIFF FINAL Differential Comment Laboratory Tests Test 02/03/18 06:40 02/04/18 05:40 Blood Urea Nitrogen 38 MG/DL 34 MG/DL Creatinine 2.40 MG/DL 2.00 MG/DL Random Glucose 113 MG/DL 110 MG/DL Calcium Level 7.5 MG/DL 8.0 MG/DL Sodium Level 134 MEQ/L 135 MEQ/L Potassium Level 4.4 MEQ/L 4.0 MEQ/L Chloride Level 101 MEQ/L 104 MEQ/L Carbon Dioxide Level 26.5 MEQ/L 24.3 MEQ/L Anion Gap 7 MEQ/L 7 MEQ/L Estimat Glomerular Filtration Rate 26 ML/MIN 32 ML/MIN Microbiology Date/Time Source Procedure Growth Status 02/03/18 11:30 Blood Peripheral Aerobic Blood Culture - Preliminary NO GROWTH IN 1 DAY Resulted 02/03/18 11:30 Blood Peripheral Anaerobic Blood Culture - Preliminary NO GROWTH IN 1 DAY Resulted 02/03/18 11:20 Blood Peripheral Aerobic Blood Culture - Preliminary NO GROWTH IN 1 DAY Resulted 02/03/18 11:20 Blood Peripheral Anaerobic Blood Culture - Preliminary NO GROWTH IN 1 DAY Resulted 02/01/18 22:20 Blood Peripheral Aerobic Blood Culture - Preliminary S. Aureus Mrsa Resulted 02/01/18 22:20 Blood Peripheral Anaerobic Blood Culture - Preliminary NO GROWTH IN 3 DAYS Resulted 02/01/18 22:15 Blood Peripheral Aerobic Blood Culture - Preliminary S. Aureus Mrsa Resulted 02/01/18 22:15 Blood Peripheral Anaerobic Blood Culture - Preliminary NO GROWTH IN 3 DAYS Resulted 02/02/18 01:05 Nasal Washing Influenza Types A,B Antigen (CLIFF) - Final Positive For Flu A Antigen Complete 02/02/18 00:22 Urine Catheterized Urine Urine Culture - Final 10-50,000 CFU/ML MIXED GRAM POSITIVE ... Complete IMAGING: Chest X-Ray 02/01/182128 Signed Impressions: Service Date/Time: Thursday, February 01, 2018 21:44 - CONCLUSION: Trace bibasilar atelectasis. Alex Arellano MD Abdomen/Pelvis CT 02/01/182128 Signed Impressions: Service Date/Time: Thursday, February 01, 2018 23:05 - CONCLUSION: 1. No acute abnormality to explain the patient's pain. 2. Cholelithiasis. Andre Valladares Jr., MD PHYSICAL EXAMINATION: GENERAL: No acute distress. Awake and alert and oriented. HEAD, EARS, EYES, NOSE AND THROAT: Extraocular movements grossly intact. Pupils reactive to light. No icterus. Oropharynx: Moist mucosa. NECK: Supple without adenopathy. LUNGS: Decreased breath sounds. HEART: Regular S1, S2 with a II/ systolic murmur at the left upper sternal border. ABDOMEN: Bowel sounds present, soft, no tenderness. EXTREMITIES: No clubbing, cyanosis or edema. No nail splinter hemorrhages. SKIN: No rash. NEUROLOGIC: No gross focal findings. PSYCHIATRIC: Calm and cooperative. IMPRESSION: 1. Bacteremia due to methicillin-resistant Staphylococcus aureus in the patient who has had valve replacement with a bovine valve. No clear etiology. 2. Influenza A. 3. Acute kidney disease on top of previous chronic renal disease. RECOMMENDATIONS: 1. Continue the vancomycin. 2. Stop ceftriaxone. 3. Follow 2-D echocardiogram to evaluate heart valve vegetation. 4. Monitor renal function. Appears slightly improved. 5. Monitor the sensitivity of the MRSA. 6. Continue to treat influenza with Tamiflu 7. Follow clinical status. If the 2D echocardiogram does not reveal heart valve vegetation, The patient will require a PARIS to further evaluate for possible endocarditis. This will also determine length of therapy for the MRSA. Ryan Cm MD Feb 04, 2018 15:32
[2018-02-04 16:00] VITALS: BP 124/59; PULSE 81; RESP 16; TEMP 98.4; O2SAT 95
[2018-02-04 20:00] VITALS: BP 129/67; PULSE 84; RESP 20; TEMP 97.3; O2SAT 97
[2018-02-04] MEDS: ATORVASTATIN 40 MG TAB PO SCH (20:38)
[2018-02-05] VITALS (7 sets, daily range): BP systolic 122–154; BP diastolic 57–78; PULSE 83–87; RESP 16–20; TEMP 96.2–98.8; O2SAT 93–97
[2018-02-05] MEDS: ISOSORBIDE MONONITRATE 30 MG CR TAB (IMDUR) PO SCH (05:51)
[2018-02-05] MEDS: SODIUM CHLOR 0.9% 1000 ML INJ 1,000 ML IV SCH ×2 (07:40→23:13)
[2018-02-05] MEDS: INSULIN ASPART SUPPLEMENTAL SCALE SQ SCH ×2 (08:00→12:00)
[2018-02-05 08:08] LABS: BICARBONATE 25.5 MEQ/L (21.0-32.0); CALCIUM 7.3 MG/DL (8.5-10.1); CREATININE 1.7 MG/DL (0.60-1.30)
[2018-02-05] MEDS: SODIUM CHLORIDE 0.9% FLUSH 10 ML FLUSH IV FLUSH SCH ×2 (09:00→23:13)
[2018-02-05 10:03] LABS: CALCIUM-PROTEIN CORRECTED 7.9 MG/DL (8.5-10.1)
--- NOTE | 2018-02-05 11:04 | ECHRPT ---
Indication: R/O ENDOCARDITIS, POSS SEPSIS CONCLUSIONS Normal left ventricular size. Mild concentric left ventricular hypertrophy. The left ventricular systolic function is normal with an estimated ejection fraction in the range of 60-65%. No regional wall motion abnormalities are present. The aortic valve is not well visualized. Reportedly patient status-post percutaneous aortic valve replacement. Normal valve function. There is trace tricuspid valve regurgitation. BP: 120 / 59 HR: 84 Rhythm: Sinus MEASUREMENTS (Male / Female) Normal Values Technical Quality:Fair 2D ECHO LV Diastolic Diameter PLAX 4.3 cm 4.2 - 5.9 / 3.9 - 5.3 cm LV Systolic Diameter PLAX 3.2 cm IVS Diastolic Thickness 1.6 cm 0.6 - 1.0 / 0.6 - 0.9 cm LVPW Diastolic Thickness 1.6 cm 0.6 - 1.0 / 0.6 - 0.9 cm LV Relative Wall Thickness 0.7 RV Internal Dim ED PLAX 2.7 cm LVOT Diameter 1.9 cm Aortic Root Diameter 2.8 cm LA Systolic Diameter LX 3.7 cm 3.0 - 4.0 / 2.7 - 3.8 cm DOPPLER AV Peak Velocity 198.5 cm/s AV Peak Gradient 15.8 mmHg AV Mean Gradient 9.5 mmHg AV Velocity Time Integral 41.8 cm LVOT Peak Velocity 108.0 cm/s LVOT Peak Gradient 4.7 mmHg LVOT Velocity Time Integral 24.5 cm AV Area Cont Eq vti 1.7 cm AV Area Cont Eq pk 1.5 cm Mitral E Point Velocity 96.7 cm/s Mitral A Point Velocity 113.0 cm/s Mitral E to A Ratio 0.9 LV E' Lateral Velocity 7.0 cm/s Mitral E to LV E' Lateral Ratio 13.8 LV E' Septal Velocity 5.2 cm/s Mitral E to LV E' Septal Ratio 18.7 TR Peak Velocity 303.0 cm/s TR Peak Gradient 36.7 mmHg Right Atrial Pressure 10.0 mmHg Pulmonary Artery Systolic Pressu 46.7 mmHg Right Ventricular Systolic Press 46.7 mmHg PV Peak Velocity 73.7 cm/s PV Peak Gradient 2.2 mmHg FINDINGS LEFT VENTRICLE Normal left ventricular size. Mild concentric left ventricular hypertrophy. The left ventricular systolic function is normal with an estimated ejection fraction in the range of 60-65%. No regional wall motion abnormalities are present. RIGHT VENTRICLE Normal right ventricular size and systolic function. LEFT ATRIUM The left atrial size is normal. RIGHT ATRIUM The right atrial size is normal. ATRIAL SEPTUM The interatrial septum not well visualized. AORTA The aortic root and proximal ascending aorta are not well visualized. MITRAL VALVE Trace mitral valve regurgitation. AORTIC VALVE The aortic valve is not well visualized. Reportedly patient status-post percutaneous aortic valve replacement. Normal valve function. TRICUSPID VALVE There is trace tricuspid valve regurgitation. PULMONARY VALVE Mild pulmonary valve regurgitation. VESSELS The inferior vena cava was not well visualized. PERICARDIUM No pericardial effusion. Quirino Castellanos MD (Electronically Signed) Final Date:05 February 2018 11:03
[2018-02-05] MEDS: OSELTAMIVIR PHOSPHATE 75 MG CAP PO SCH ×2 (12:43→23:14)
[2018-02-05] MEDS: PANTOPRAZOLE SOD 40 MG DELAYED RELEASE TAB PO SCH (12:43)
[2018-02-05] MEDS: CARVEDILOL 6.25 MG TAB PO SCH ×2 (12:43→23:13)
[2018-02-05] MEDS: APIXABAN 5 MG TABLET PO SCH ×2 (12:43→23:13)
[2018-02-05] MEDS: hydrALAZINE HCL 50 MG TAB PO SCH ×2 (12:43→23:14)
--- NOTE | 2018-02-05 13:22 | HHI.PR ---
Subjective Remarks Patient seen and examined today for follow-up on sepsis, bacteremia. Patient resting comfortably. States that he has now developed a pain in the middle part of his back. He does remain afebrile. However patient continues to have positive blood cultures and persistent bacteremia. Objective Vitals Vital Signs Date Time Temp Pulse Resp B/P (MAP) Pulse Ox O2 Delivery O2 Flow Rate FiO2 02/05/18 08:00 98.7 84 18 127/61 (83) 94 02/05/18 04:00 98.2 84 20 124/78 (93) 94 02/05/18 00:00 96.2 83 20 126/66 (86) 97 02/04/18 20:00 97.3 84 20 129/67 (87) 97 02/04/18 16:00 98.4 81 16 124/59 (80) 95 I/O 02/04/18 02/04/18 02/04/18 02/05/18 02/05/18 02/05/18 07:00 15:00 23:00 07:00 15:00 23:00 Intake Total 1180 ml 2 ml 480 ml Output Total 200 ml 375 ml 175 ml Balance 980 ml -375 ml -173 ml 480 ml Intake Oral 180 ml 480 ml IV Total 1000 ml 2 ml Output Urine Total 200 ml 375 ml 175 ml # Voids 1 1 # Bowel Movements 0 0 0 1 Result Diagram: 02/03/18 0640 02/05/18 0620 Objective Remarks GENERAL: Well-developed, well-nourished, in no acute distress. alert and orientated HEENT: Head is normocephalic without any lesions or masses noted. Facial features are symmetric. Eyes: Extraocular muscles are intact. Conjunctivae were clear. NECK: Supple without any masses. Trachea midline no deviation. No JVD, CARDIAC: Regular rhythm, regular rate. S1/S2 are heard. No murmurs gallops or rubs. LUNGS: Clear to auscultation bilaterally. No wheeze, rhonchi or rales. No use of accessory muscles on inspiration or expiration. ABDOMEN: Soft, nontender. Nondistended. Bowel sounds heard in all 4 quadrants. No organomegaly or masses. Negative rebound, negative guarding EXTREMITIES: No edema, pulses are equal bilaterally. No cyanosis or clubbing NEUROLOGY: Mood and affect appear appropriate. Cranial nerves II through XII grossly intact. Moving all extremities, speech is clear Urinary Catheter: No Vascular Central Line Catheter: No A/P Assessment and Plan Sepsis Patient originally presented with febrile illness, tachycardia, abnormal urinalysis, influenza A infection Patient originally started on Tamiflu, Rocephin and Zosyn Continue Tamiflu for total of 5 days Blood culture followed in did become positive with MRSA Chest x-ray did not indicate any acute abnormality Urine culture was unremarkable with 10-50,000 colonies of mixed konstantin MRSA bacteremia Patient high risk with known history of bovine aortic valve replacement [address] the abdomen and pelvis did not indicate any acute source of infection/ chest x-ray does not indicate any abnormality or etiology 2/4 blood cultures positive for MRSA on presentation on 02/01/18 1/4 blood cultures positive with gram-positive cocci on follow up cultures on 02/03/18, and if MRSA again this will indicate persistent bacteremia Patient currently on vancomycin, managed by pharmacy Infectious disease consulted and following patient they did recommend echocardiogram and if unremarkable patient will require PARIS Echocardiogram was performed and indicates ejection fraction 60-65%, trace of tricuspid valve regurg, aortic valve not well visualized. Cardiology consulted for PARIS Acute renal failure superimposed on chronic kidney disease stage III Continue IV fluids Renal functions improving slowly Avoid nephrotoxins Diabetes type 2, controlled with diet at this time Continue to Hold oral hypoglycemic agent secondary to acute renal failure Continue diabetic diet Discontinue Accu-Cheks with sliding scale insulin. Patient is not required any insulin during hospitalization since 02/02/17 History of hypertension, aortic valve replacement, coronary artery disease, hyperlipidemia Home medications have been continued Blood pressure stable Patient anticoagulated with Eliquis DVT prevention Patient is on Eliquis Discharge Planning Discharge disposition, length of stay unable to determine at this time.. Patient will require PARIS which cannot be done until Wednesday, patient will need to have negative follow-up blood cultures. If PARIS is positive then we'll also need cardiothoracic surgeon consultation Thong Dan Feb 05, 2018 13:22
[2018-02-05] MEDS: VANCOMYCIN INJ 1,250 MG in SODIUM CHLOR 0.9% 250 ML INJ 250 ML IV SCH (14:46)
[2018-02-05] MEDS: ATORVASTATIN 40 MG TAB PO SCH (23:15)
[2018-02-06] VITALS (7 sets, daily range): BP systolic 106–165; BP diastolic 54–71; PULSE 78–100; RESP 18–22; TEMP 96.7–99.5; O2SAT 92–98
[2018-02-06] MEDS: ISOSORBIDE MONONITRATE 30 MG CR TAB (IMDUR) PO SCH ×2 (06:23→10:44)
[2018-02-06 06:55] LABS: BASOPHIL % 0.1 % (0.0-2.0); EOSINOPHIL # 0.1 TH/MM3 (0-0.4); EOSINOPHIL % 1.7 % (0.0-4.0); HEMOGLOBIN 9.9 GM/DL (13.0-17.0); LYMPH % 13.7 % (9.0-44.0); LYMPHOCYTE # 1.1 TH/MM3 (1.0-4.8); MEAN CELL VOLUME 89.8 FL (80.0-100.0); MEAN CORPUSCULAR HEMOGLOBIN 28.6 PG (27.0-34.0); MEAN CORPUSCULAR HGB CONC 31.9 % (32.0-36.0); MEAN PLATELET VOLUME 7.7 FL (7.0-11.0); MONO % 7.6 % (0.0-8.0); MONOCYTE # 0.6 TH/MM3 (0-0.9); NEUT % 76.9 % (16.0-70.0); PLATELET COUNT 114 TH/MM3 (150-450); RED BLOOD COUNT 3.46 MIL/MM3 (4.50-5.90); RED CELL DISTRIBUTION WIDTH 15.9 % (11.6-17.2); WHITE BLOOD COUNT 7.8 TH/MM3 (4.0-11.0)
[2018-02-06 07:17] LABS: CALCIUM 7.5 MG/DL (8.5-10.1)
[2018-02-06 07:18] LABS: BICARBONATE 25.9 MEQ/L (21.0-32.0); MAGNESIUM 1.7 MG/DL (1.5-2.5)
[2018-02-06 07:21] LABS: CREATININE 1.4 MG/DL (0.60-1.30)
[2018-02-06] MEDS: SODIUM CHLOR 0.9% 1000 ML INJ 1,000 ML IV SCH ×2 (07:30→22:08)
--- NOTE | 2018-02-06 08:38 | MB ---
cc: Garrett Seaman MD, Ashraf S MD DATE OF CONSULT: 02/06/2018 REASON FOR CONSULTATION: MRSA sepsis and bacteremia, need for PARIS. HISTORY OF PRESENT ILLNESS: Mr. Staples is an 87-year-old white gentleman with a known patient to Dr. Faulkner who has history of TAVR about 2 years ago. The patient presented to the hospital on 02/02/2018 with complaints of fevers and chills. He had some urinary retention and gross hematuria as well. He was diagnosed with influenza A and also has been growing MRSA out of his blood. He is currently afebrile, but apparently did have fever as high as 104.6 documented on 02/02/2018 at 0333. He is currently lying in bed and asymptomatic at this time. Because of his situation, a transesophageal echocardiogram has been requested for further evaluation of him for possible endocarditis. The patient also tells me he has an IVC filter and bilateral knee replacements. PAST MEDICAL HISTORY: Includes that mentioned above. In addition, he has had chronic kidney disease, CVA x 2, multiple myocardial infarctions (remote), hypertension, and osteoarthritis. PAST SURGICAL HISTORY: TAVR 2 years ago at [facility], [place], TUR prostate, carotid endarterectomy, and bilateral knee replacement. CURRENT MEDICATIONS: 1. Vancomycin IV q.24 hours. 2. Lipitor 80 mg p.o. at bedtime. 3. Eliquis 5 mg p.o. b.i.d. 4. Carvedilol 6.25 mg b.i.d. 5. Hydralazine 100 mg b.i.d. 6. Isosorbide mononitrate 30 mg daily. 7. Protonix 40 mg daily. SOCIAL HISTORY: The patient denies tobacco, alcohol or illicit drug use at this time. He had a cigarette smoker history 40 years ago. FAMILY HISTORY: Noncontributory. ALLERGIES: SULFA, IODINE, POTASSIUM IODIDE, POVIDONE AND SODIUM IODIDE. REVIEW OF SYSTEMS: Denies lower extremity edema or claudication. He has had no palpitations, lightheadedness or syncope. Denies bleeding or clotting disorders. Except for that mentioned in the HPI, his complete 12-point review of systems is otherwise negative. PHYSICAL EXAMINATION: GENERAL: Reveals an elderly, overweight, white gentleman lying in bed, in no distress. VITAL SIGNS: Blood pressure 127/61 mmHg, heart rate is 84 and regular, respiratory rate 18, temperature 98.7, oxygen saturation 94% on room air. HEENT: Head is normocephalic and atraumatic. Pupils equal, round, reactive to light. Sclerae are anicteric. Extraocular movements intact. NECK: Supple. There is no adenopathy. No jugular venous distention at 45 degrees. Carotid upstrokes normal. No bruits. Thyroid exam is normal. LUNGS: Clear. HEART: PMI is not displaced. S1, S2 normal. There is a grade I/ systolic murmur heard at the base. No diastolic murmur, gallops, or rubs. ABDOMEN: Bowel sounds present. Soft, nontender, obese. No hepatosplenomegaly, masses, or bruits. EXTREMITIES: No cyanosis, clubbing or edema. Perfusion is adequate in the upper and lower extremities. There are no femoral bruits. NEUROLOGIC: Nonfocal. EKG: Sinus rhythm, left anterior fascicular block, LVH, abnormal EKG. IMAGING RESULTS: Chest x-ray shows trace bibasilar atelectasis. LABORATORY STUDIES: Chemistries are pending today. Yesterday, sodium 137, potassium 4.3, chloride 106, CO2 of 25.5, BUN 29, creatinine 1.7. Coags: INR 1.3, PTT 31.1. CBC from 02/03/2018: White count 8.1; hemoglobin 10.4; platelet count 118,000. Transthoracic echocardiogram: From 02/04/2018 shows mild concentric LVH. Left ventricular ejection fraction 60-65%. No wall motion abnormalities. Aortic valve not well visualized. Normal valve function, trace mitral regurgitation, mild pulmonic insufficiency, trace tricuspid regurgitation. IMPRESSION: 1. Methicillin-resistant Staphylococcus aureus bacteremia, uncertain source. 2. History of transcatheter aortic valve implantation 2 years ago. 3. Bilateral knee replacements. 4. Possible inferior vena cava filter. 5. History of cerebrovascular accident, on long-term anticoagulation therapy with Eliquis. 6. Influenza A infection. RECOMMENDATIONS: Agree with proceeding with a transesophageal echocardiography for further evaluation of his bacteremia. He will require transfer to the main hospital for that procedure. I will discuss this with Dr. Faulkner when he returns tonight and perhaps that can get scheduled for tomorrow. I have discussed the plans in detail with the patient. Thank you for allowing us to participate in the care of this patient. MD LINDSEY Benson/MARI , 07:14 AM , 08:36 AM
--- NOTE | 2018-02-06 09:40 | HHI.PR ---
Subjective Remarks Patient seen and examined today for follow-up on sepsis, bacteremia. Requested the patient be transferred to the main hospital yesterday for [place], however patient still in [place]. Patient still bacteremic, he remains afebrile. Patient denies any new complaints. Objective Vitals Vital Signs Date Time Temp Pulse Resp B/P (MAP) Pulse Ox O2 Delivery O2 Flow Rate FiO2 02/06/18 03:14 98.8 86 22 141/64 (89) 94 02/06/18 00:08 99.2 84 20 155/71 (99) 92 02/05/18 21:00 97.7 87 20 154/69 (97) 95 02/05/18 20:15 85 02/05/18 18:52 98.1 83 18 141/63 (89) 93 02/05/18 12:00 98.8 86 16 122/57 (78) 94 I/O 02/05/18 02/05/18 02/05/18 02/06/18 02/06/18 02/06/18 07:00 15:00 23:00 07:00 15:00 23:00 Intake Total 480 ml 356 ml 879 ml Output Total 750 ml Balance 480 ml 356 ml 129 ml Intake Oral 480 ml 356 ml IV Total 879 ml Output Urine Total 750 ml # Voids 1 # Bowel Movements 1 0 Result Diagram: 02/06/1825 02/06/18 0625 Objective Remarks GENERAL: Well-developed, well-nourished, in no acute distress. alert and orientated HEENT: Head is normocephalic without any lesions or masses noted. Facial features are symmetric. Eyes: Extraocular muscles are intact. Conjunctivae were clear. NECK: Supple without any masses. Trachea midline no deviation. No JVD, CARDIAC: Regular rhythm, regular rate. S1/S2 are heard. No murmurs gallops or rubs. LUNGS: Clear to auscultation bilaterally. No wheeze, rhonchi or rales. No use of accessory muscles on inspiration or expiration. ABDOMEN: Soft, nontender. Nondistended. Bowel sounds heard in all 4 quadrants. No organomegaly or masses. Negative rebound, negative guarding EXTREMITIES: No edema, pulses are equal bilaterally. No cyanosis or clubbing NEUROLOGY: Mood and affect appear appropriate. Cranial nerves II through XII grossly intact. Moving all extremities, speech is clear Urinary Catheter: No Vascular Central Line Catheter: No A/P Assessment and Plan Sepsis Patient originally presented with febrile illness, tachycardia, abnormal urinalysis, influenza A infection Patient originally started on Tamiflu, Rocephin and Zosyn Continue Tamiflu for total of 5 days Blood culture followed in did become positive with MRSA Chest x-ray did not indicate any acute abnormality Urine culture was unremarkable with 10-50,000 colonies of mixed konstantin MRSA bacteremia Patient high risk with known history of bovine aortic valve replacement [address] the abdomen and pelvis did not indicate any acute source of infection/ chest x-ray does not indicate any abnormality or etiology 2/4 blood cultures positive for MRSA on presentation on 02/01/18 1/4 blood cultures positive with gram-positive cocci on follow up cultures on 02/03/18, and if MRSA again this will indicate persistent bacteremia Patient currently on vancomycin, managed by pharmacy Infectious disease consulted and following patient they did recommend echocardiogram and if unremarkable patient will require PARIS Echocardiogram was performed and indicates ejection fraction 60-65%, trace of tricuspid valve regurg, aortic valve not well visualized. Cardiology consulted for PARIS Transfer order placed 02/05/18 to main hospital for [place]IS Acute renal failure superimposed on chronic kidney disease stage III Continue IV fluids Renal functions continues to improve Avoid nephrotoxins Diabetes type 2, controlled with diet at this time Continue to Hold oral hypoglycemic agent secondary to acute renal failure Continue diabetic diet Discontinue Accu-Cheks with sliding scale insulin. Patient is not required any insulin during hospitalization since 02/02/17 History of hypertension, aortic valve replacement, coronary artery disease, hyperlipidemia Home medications have been continued Blood pressure stable Patient anticoagulated with Eliquis DVT prevention Patient is on Eliquis Discharge Planning Discharge disposition, length of stay unable to determine at this time.. Patient will require PARIS, patient will need to have negative follow-up blood cultures. If PARIS is positive then we'll also need cardiothoracic surgeon consultation Thong Dan Feb 06, 2018 09:40
[2018-02-06] MEDS: CARVEDILOL 6.25 MG TAB PO SCH ×2 (10:44→22:09)
[2018-02-06] MEDS: ACETAMINOPHEN 325 MG TAB PO PRN (10:44)
[2018-02-06] MEDS: DOCUSATE SODIUM 50 MG/SENNA 8.6 MG TAB PO SCH ×2 (10:44→22:10)
[2018-02-06] MEDS: APIXABAN 5 MG TABLET PO SCH ×2 (10:44→22:09)
[2018-02-06] MEDS: SODIUM CHLORIDE 0.9% FLUSH 10 ML FLUSH IV FLUSH SCH ×2 (10:45→22:08)
[2018-02-06] MEDS: PANTOPRAZOLE SOD 40 MG DELAYED RELEASE TAB PO SCH (10:45)
[2018-02-06] MEDS: OSELTAMIVIR PHOSPHATE 75 MG CAP PO SCH ×2 (10:45→22:10)
[2018-02-06] MEDS: hydrALAZINE HCL 50 MG TAB PO SCH ×2 (10:45→22:09)
[2018-02-06] MEDS ORDERED: PHARMACY ORDERED LAB ONE (12:45)
[2018-02-06] MEDS: VANCOMYCIN INJ 1,250 MG in SODIUM CHLOR 0.9% 250 ML INJ 250 ML IV SCH (13:41)
--- NOTE | 2018-02-06 19:46 | HHI.IDPN ---
Note Infectious Disease Note Patient feels better. No longer having chills. Awake and alert. Afebrile. No significant cough Blood culture on 02/01 has MRSA in both sets. Blood culture on 02/03 has MRSA. 2D echocardiogram result unable to adequately visualize aortic valve. Plan in place for transfer to [facility] for PARIS 87-year-old white male who presented to the Emergency Department with fever and chills. The patient also was noted to have generalized weakness and nausea. He was started on ciprofloxacin by his primary care physician when he presented with urinary tract symptoms. He reportedly was having some blood in the urine and he tried to get an appointment with his urologist, but could not do so and therefore he saw his primary care physician who put him on the ciprofloxacin. After taking 2 doses, the patient came to the Emergency Department for evaluation. The patient reports that he has had occasional chills for the past 2 weeks. Temperature fay to 104 degrees on 02/02/2018 and has gradually decreased. Last maximum temperature was 100.7 yesterday evening. The patient states that his last procedure performed on him was a cystoscopy by his urologist 2 months ago. PAST MEDICAL HISTORY: Coronary artery disease, benign prostatic hypertrophy, diabetes mellitus type 2, osteoarthritis, peripheral vascular disease, history of carotid endarterectomy, history of coronary bypass graft surgery, hypertension, history of bovine aortic heart valve replacement 2 years ago, TURP, bilateral knee replacements. ALLERGIES: 1. SULFA. 2. IODINE. 3. POTASSIUM IODIDE. 4. POVIDONE IODINE. 5. SODIUM IODIDE. MEDICATIONS: Current Medications Medications (Trade) Dose Ordered Sig/Zenobia Route PRN Reason Start Time Stop Time Status Last Admin Dose Admin Sodium Chloride (NS Flush) 2 ml UNSCH PRN IV FLUSH FLUSH AFTER USING IV ACCESS 02/02/18 01:15 Sodium Chloride (NS Flush) 2 ml BID IV FLUSH 02/02/18 09:00 02/06/18 10:45 Naloxone HCl (Narcan Inj) 0.4 mg UNSCH PRN IV PUSH SEE LABEL COMMENTS 02/02/18 01:15 Oseltamivir Phosphate (Tamiflu) 75 mg BID PO 02/02/18 09:00 02/06/18 22:00 02/06/18 10:45 Acetaminophen (Tylenol) 650 mg Q4H PRN PO FEVER, neck pain 02/02/18 04:00 02/06/18 10:44 Apixaban (Eliquis) 5 mg BID PO 02/02/18 09:00 02/06/18 10:44 Atorvastatin Calcium (Lipitor) 80 mg HS PO 02/02/18 21:00 02/05/18 23:15 Carvedilol (Coreg) 6.25 mg BID PO 02/02/18 09:00 02/06/18 10:44 Hydralazine HCl (Apresoline) 100 mg BID PO 02/02/18 09:00 02/06/18 10:45 Isosorbide Mononitrate (Imdur) 30 mg DAILY@0700 PO 02/02/18 09:00 02/06/18 10:44 Pantoprazole Sodium (Protonix) 40 mg DAILY PO 02/02/18 09:00 02/06/18 10:45 Ondansetron HCl (Zofran Inj) 4 mg Q6HR PRN IV PUSH NAUSEA OR VOMITING 02/02/18 12:00 02/02/18 12:13 Sodium Chloride 1,000 ml @ 84 mls/hr [id number] IV 02/03/18 08:00 02/06/18 07:30 Pharmacy Profile Note 0 ml @ 0 mls/hr UNSCH OTHER 02/03/18 09:30 Senna/Docusate Sodium (Jessica-Colace) 1 tab BID PO 02/06/18 09:00 02/06/18 10:44 Vancomycin HCl 1250 mg/Sodium Chloride 262.5 ml @ 250 mls/hr Q18H IV 02/07/18 08:00 Miscellaneous Information SPECIFIC LAB TO BE DRAWN:VANCOMYCIN TROUGH DATE TO... ONCE ONCE .XX 02/09/18 13:45 02/09/18 13:46 OBJECTIVE: Vital Signs Date Time Temp Pulse Resp B/P (MAP) Pulse Ox O2 Delivery O2 Flow Rate FiO2 02/06/18 16:00 99.5 82 18 156/70 (98) 92 02/06/18 12:14 18 02/06/18 12:00 96.7 99 18 106/54 (71) 98 02/06/18 08:00 99.2 100 18 138/62 (87) 94 02/06/18 03:14 98.8 86 22 141/64 (89) 94 02/06/18 00:08 99.2 84 20 155/71 (99) 92 02/05/18 21:00 97.7 87 20 154/69 (97) 95 02/05/18 20:15 85 Laboratory Tests Test 02/06/18 06:25 White Blood Count 7.8 TH/MM3 Red Blood Count 3.46 MIL/MM3 Hemoglobin 9.9 GM/DL Hematocrit 31.0 % Mean Corpuscular Volume 89.8 FL Mean Corpuscular Hemoglobin 28.6 PG Mean Corpuscular Hemoglobin Concent 31.9 % Red Cell Distribution Width 15.9 % Platelet Count 114 TH/MM3 Mean Platelet Volume 7.7 FL Neutrophils (%) (Auto) 76.9 % Lymphocytes (%) (Auto) 13.7 % Monocytes (%) (Auto) 7.6 % Eosinophils (%) (Auto) 1.7 % Basophils (%) (Auto) 0.1 % Neutrophils # (Auto) 6.0 TH/MM3 Lymphocytes # (Auto) 1.1 TH/MM3 Monocytes # (Auto) 0.6 TH/MM3 Eosinophils # (Auto) 0.1 TH/MM3 Basophils # (Auto) 0.0 TH/MM3 CBC Comment DIFF FINAL Differential Comment Laboratory Tests Test 02/05/18 06:20 02/06/18 06:25 Blood Urea Nitrogen 29 MG/DL 25 MG/DL Creatinine 1.70 MG/DL 1.40 MG/DL Random Glucose 136 MG/DL 142 MG/DL Total Protein 6.0 GM/DL Calcium Level 7.3 MG/DL 7.5 MG/DL Sodium Level 137 MEQ/L 135 MEQ/L Potassium Level 4.3 MEQ/L 4.2 MEQ/L Chloride Level 106 MEQ/L 104 MEQ/L Carbon Dioxide Level 25.5 MEQ/L 25.9 MEQ/L Anion Gap 6 MEQ/L 5 MEQ/L Estimat Glomerular Filtration Rate 38 ML/MIN 48 ML/MIN Protein Corrected Calcium 7.9 MG/DL Magnesium Level 1.7 MG/DL Microbiology Date/Time Source Procedure Growth Status 02/03/18 11:30 Blood Peripheral Aerobic Blood Culture - Preliminary NO GROWTH IN 1 DAY Resulted 02/03/18 11:30 Blood Peripheral Anaerobic Blood Culture - Preliminary NO GROWTH IN 1 DAY Resulted 02/03/18 11:20 Blood Peripheral Aerobic Blood Culture - Preliminary NO GROWTH IN 1 DAY Resulted 02/03/18 11:20 Blood Peripheral Anaerobic Blood Culture - Preliminary NO GROWTH IN 1 DAY Resulted 02/01/18 22:20 Blood Peripheral Aerobic Blood Culture - Preliminary S. Aureus Mrsa Resulted 02/01/18 22:20 Blood Peripheral Anaerobic Blood Culture - Preliminary NO GROWTH IN 3 DAYS Resulted 02/01/18 22:15 Blood Peripheral Aerobic Blood Culture - Preliminary S. Aureus Mrsa Resulted 02/01/18 22:15 Blood Peripheral Anaerobic Blood Culture - Preliminary NO GROWTH IN 3 DAYS Resulted 02/02/18 01:05 Nasal Washing Influenza Types A,B Antigen (CLIFF) - Final Positive For Flu A Antigen Complete 02/02/18 00:22 Urine Catheterized Urine Urine Culture - Final 10-50,000 CFU/ML MIXED GRAM POSITIVE ... Complete IMAGING: Chest X-Ray 02/01/182128 Signed Impressions: Service Date/Time: Thursday, February 01, 2018 21:44 - CONCLUSION: Trace bibasilar atelectasis. Alex Arellano MD Abdomen/Pelvis CT 02/01/182128 Signed Impressions: Service Date/Time: Thursday, February 01, 2018 23:05 - CONCLUSION: 1. No acute abnormality to explain the patient's pain. 2. Cholelithiasis. Andre Valladares Jr., MD PHYSICAL EXAMINATION: GENERAL: No acute distress. Awake and alert and oriented. HEENT: Extraocular movements grossly intact. Pupils reactive to light. No icterus. Oropharynx: Moist mucosa. NECK: Supple without adenopathy. LUNGS: Decreased breath sounds. HEART: Regular S1, S2 with a II/ systolic murmur at the left upper sternal border. ABDOMEN: Bowel sounds present, soft, no tenderness. EXTREMITIES: No clubbing, cyanosis or edema. SKIN: No rash. NEUROLOGIC: No gross focal findings. PSYCHIATRIC: Calm and cooperative. IMPRESSION: 1. Bacteremia due to methicillin-resistant Staphylococcus aureus in the patient who has had valve replacement with a bovine valve. No clear etiology. 2. Influenza A. 3. Acute kidney disease on top of previous chronic renal disease. RECOMMENDATIONS: 1. Continue the vancomycin. 2. Repeat the blood cultures 3. PARIS to evaluate the aortic valve 4. Monitor renal function. Appears slightly improved. 5. Continue to treat influenza with Tamiflu 6. Follow clinical status. PARIS and or persistence of bacteria in the bloodstream will determine length of therapy for the MRSA. Ryan Cm MD Feb 06, 2018 19:46
[2018-02-06] MEDS: ATORVASTATIN 40 MG TAB PO SCH (22:09)
[2018-02-07] MEDS ORDERED: ISOSORBIDE MONONITRATE 30 MG CR TAB (IMDUR) PO ONE (05:15)
[2018-02-07 07:27] LABS: CREATININE 1.3 MG/DL (0.60-1.30)
--- NOTE | 2018-02-07 08:45 | HHI.PR ---
Subjective Remarks Patient seen and examined today for follow-up on sepsis, bacteremia, influenza. Patient still in [place]. Still awaiting transferred to the [facility] in order to have PARIS done for evaluation. Patient denies any new complaints. Patient remains afebrile Objective Vitals Vital Signs Date Time Temp Pulse Resp B/P (MAP) Pulse Ox O2 Delivery O2 Flow Rate FiO2 02/07/18 04:18 02/06/18 22:10 97.6 81 20 165/70 (101) 93 02/06/18 20:15 78 02/06/18 16:00 99.5 82 18 156/70 (98) 92 02/06/18 12:14 18 02/06/18 12:00 96.7 99 18 106/54 (71) 98 I/O 02/06/18 02/06/18 02/06/18 02/07/18 02/07/18 02/07/18 07:00 15:00 23:00 07:00 15:00 23:00 Intake Total 879 ml 1110 ml 667 ml Output Total 750 ml 325 ml 1200 ml Balance 129 ml 785 ml -533 ml Intake Oral 600 ml IV Total 879 ml 510 ml 667 ml Output Urine Total 750 ml 325 ml 1200 ml # Voids 4 # Bowel Movements 0 2 Result Diagram: 02/06/18 0625 02/07/18 0607 Objective Remarks GENERAL: Well-developed, well-nourished, in no acute distress. alert and orientated HEENT: Head is normocephalic without any lesions or masses noted. Facial features are symmetric. Eyes: Extraocular muscles are intact. Conjunctivae were clear. NECK: Supple without any masses. Trachea midline no deviation. No JVD, CARDIAC: Regular rhythm, regular rate. S1/S2 are heard. No murmurs gallops or rubs. LUNGS: Clear to auscultation bilaterally. No wheeze, rhonchi or rales. No use of accessory muscles on inspiration or expiration. ABDOMEN: Soft, nontender. Nondistended. Bowel sounds heard in all 4 quadrants. No organomegaly or masses. Negative rebound, negative guarding EXTREMITIES: No edema, pulses are equal bilaterally. No cyanosis or clubbing NEUROLOGY: Mood and affect appear appropriate. Cranial nerves II through XII grossly intact. Moving all extremities, speech is clear Urinary Catheter: No Vascular Central Line Catheter: No A/P Assessment and Plan Sepsis Patient originally presented with febrile illness, tachycardia, abnormal urinalysis, influenza A infection Completed Tamiflu for total of 5 days Blood culture followed in did become positive with MRSA Chest x-ray did not indicate any acute abnormality Urine culture was unremarkable with 10-50,000 colonies of mixed konstantin MRSA bacteremia Patient high risk with known history of bovine aortic valve replacement [address] the abdomen and pelvis did not indicate any acute source of infection/ chest x-ray does not indicate any abnormality or etiology 02/01/18, 2/4 blood cultures positive for MRSA 02/03/18, 1/4 blood cultures positive with MRSA 02/06/18, follow-up blood cultures pending Patient currently on vancomycin, managed by pharmacy Infectious disease consulted and following patient they did recommend echocardiogram and if unremarkable patient will require PARIS Echocardiogram was performed and indicates ejection fraction 60-65%, trace of tricuspid valve regurg, aortic valve not well visualized. Cardiology consulted for PARIS Transfer order placed 02/05/18 to main hospital for [place]IS Acute renal failure superimposed on chronic kidney disease stage III, improving Discontinue IV fluids Renal functions continues to improve Avoid nephrotoxins Anemia Hemoglobin continues to trend downward slowly Continue monitor and transfuse if hemoglobin below 8.0 Obtain anemia studies Diabetes type 2, controlled with diet at this time Continue to Hold oral hypoglycemic agent secondary to acute renal failure Continue diabetic diet Discontinue Accu-Cheks with sliding scale insulin. Patient is not required any insulin during hospitalization since 02/02/17 History of hypertension, aortic valve replacement, coronary artery disease, hyperlipidemia Home medications have been continued Blood pressure stable Patient anticoagulated with Eliquis DVT prevention Patient is on Eliquis Discharge Planning Discharge disposition, length of stay unable to determine at this time.. Patient will require PARIS, patient will need to have negative follow-up blood cultures. If PARIS is positive then we'll also need cardiothoracic surgeon consultation Thong Dan Feb 07, 2018 08:45
[2018-02-07 09:04] VITALS: BP 144/64; PULSE 86; RESP 18; TEMP 96.8; O2SAT 93
[2018-02-07 09:22] LABS: AUTOMATED NEUTROPHIL # 5.6 TH/MM3 (1.8-7.7); BASOPHIL % 0.2 % (0.0-2.0); EOSINOPHIL # 0.2 TH/MM3 (0-0.4); EOSINOPHIL % 2.7 % (0.0-4.0); HEMATOCRIT 29.8 % (39.0-51.0); HEMOGLOBIN 9.6 GM/DL (13.0-17.0); LYMPH % 15.1 % (9.0-44.0); LYMPHOCYTE # 1.1 TH/MM3 (1.0-4.8); MEAN CELL VOLUME 89.4 FL (80.0-100.0); MEAN CORPUSCULAR HEMOGLOBIN 28.8 PG (27.0-34.0); MEAN CORPUSCULAR HGB CONC 32.2 % (32.0-36.0); MEAN PLATELET VOLUME 7.8 FL (7.0-11.0); MONO % 7.1 % (0.0-8.0); MONOCYTE # 0.5 TH/MM3 (0-0.9); NEUT % 74.9 % (16.0-70.0); PLATELET COUNT 134 TH/MM3 (150-450); RED BLOOD COUNT 3.33 MIL/MM3 (4.50-5.90); RED CELL DISTRIBUTION WIDTH 15.7 % (11.6-17.2); WHITE BLOOD COUNT 7.4 TH/MM3 (4.0-11.0)
[2018-02-07] MEDS: VANCOMYCIN INJ 1,250 MG in SODIUM CHLOR 0.9% 250 ML INJ 250 ML IV SCH (09:56)
[2018-02-07] MEDS: SODIUM CHLORIDE 0.9% FLUSH 10 ML FLUSH IV FLUSH SCH ×2 (09:56→20:38)
[2018-02-07] MEDS: CARVEDILOL 6.25 MG TAB PO SCH ×2 (09:57→20:37)
[2018-02-07] MEDS: hydrALAZINE HCL 50 MG TAB PO SCH ×2 (09:57→20:37)
[2018-02-07] MEDS: APIXABAN 5 MG TABLET PO SCH ×2 (09:57→20:37)
[2018-02-07] MEDS: PANTOPRAZOLE SOD 40 MG DELAYED RELEASE TAB PO SCH (09:57)
[2018-02-07] MEDS: DOCUSATE SODIUM 50 MG/SENNA 8.6 MG TAB PO SCH ×2 (09:57→20:36)
[2018-02-07 11:50] VITALS: BP 132/62; PULSE 83; RESP 18; TEMP 96.6; O2SAT 93
[2018-02-07 12:32] LABS: RETIC # 39.7 MIL/L (20.0-150.0); RETIC % 1.2 % (0.4-3.0)
[2018-02-07 12:42] LABS: % SATURATION IRON PROFILE 15.6 % (20-50); IRON (FE) 30 MCG/DL (65-175); TOTAL IRON BINDING CAPACITY 192 MCG/DL (250-450)
[2018-02-07 13:08] LABS: FERRITIN 200 NG/ML (26-388); FOLATE 7.2 NG/ML (3.1-17.5)
--- NOTE | 2018-02-07 13:55 | RADRPT ---
EXAM DATE/TIME: 02/07/2018 13:17 [place] COMPARISON: CHEST SINGLE AP, February 01, 2018, 21:44. No previous studies available for comparison. INDICATIONS : Short of breath MEDICAL HISTORY : Cerebrovascular disease. Cardiovascular disease Hypertension.Diabetes SURGICAL HISTORY : Carotid endarterectomy. Colon resection.Discectomy, lumbar.Valve replacement IVC filter ENCOUNTER: Initial ACUITY: 1 day PAIN SCORE: 0/10 LOCATION: Bilateral chest FINDINGS: The heart is enlarged. Stable minimal. Left lung is clear. The portion of the bony skeleton visual ized is unremarkable. Percutaneous aortic valve is noted. Blunting right calcific sulcus CONCLUSION: No overt congestive failure. Mundo Weston MD FACR on February 07, 2018 at 13:51 Board Certified Radiologist. This report was verified electronically.
[2018-02-07 16:45] VITALS: BP 145/65; PULSE 83; RESP 16; TEMP 97.8; O2SAT 94
[2018-02-07 20:00] VITALS: BP 156/70; PULSE 86; RESP 20; TEMP 97.7; O2SAT 94
[2018-02-07] MEDS: ATORVASTATIN 40 MG TAB PO SCH (20:37)
[2018-02-08] VITALS (7 sets, daily range): BP systolic 119–200; BP diastolic 58–84; PULSE 61–81; RESP 18–20; TEMP 96.1–98.8; O2SAT 91–98
[2018-02-08] MEDS: VANCOMYCIN INJ 1,250 MG in SODIUM CHLOR 0.9% 250 ML INJ 250 ML IV SCH ×2 (01:42→21:41)
[2018-02-08] MEDS: ISOSORBIDE MONONITRATE 30 MG CR TAB (IMDUR) PO SCH (06:19)
[2018-02-08 06:51] LABS: AUTOMATED NEUTROPHIL # 5.7 TH/MM3 (1.8-7.7); BASOPHIL % 0.2 % (0.0-2.0); EOSINOPHIL # 0.2 TH/MM3 (0-0.4); EOSINOPHIL % 2.8 % (0.0-4.0); HEMATOCRIT 29.3 % (39.0-51.0); HEMOGLOBIN 9.9 GM/DL (13.0-17.0); LYMPH % 15.3 % (9.0-44.0); LYMPHOCYTE # 1.2 TH/MM3 (1.0-4.8); MEAN CELL VOLUME 88.8 FL (80.0-100.0); MEAN CORPUSCULAR HEMOGLOBIN 30.1 PG (27.0-34.0); MEAN CORPUSCULAR HGB CONC 33.9 % (32.0-36.0); MEAN PLATELET VOLUME 7.7 FL (7.0-11.0); MONO % 6.9 % (0.0-8.0); MONOCYTE # 0.5 TH/MM3 (0-0.9); NEUT % 74.8 % (16.0-70.0); PLATELET COUNT 151 TH/MM3 (150-450); RED CELL DISTRIBUTION WIDTH 15.4 % (11.6-17.2); WHITE BLOOD COUNT 7.6 TH/MM3 (4.0-11.0)
[2018-02-08 07:06] LABS: CALCIUM 8.1 MG/DL (8.5-10.1)
[2018-02-08 07:07] LABS: BICARBONATE 26.8 MEQ/L (21.0-32.0); MAGNESIUM 1.5 MG/DL (1.5-2.5)
[2018-02-08 07:10] LABS: CREATININE 1.2 MG/DL (0.60-1.30)
[2018-02-08] MEDS: DOCUSATE SODIUM 50 MG/SENNA 8.6 MG TAB PO SCH ×2 (09:00→20:10)
[2018-02-08] MEDS: APIXABAN 5 MG TABLET PO SCH ×2 (09:58→20:10)
[2018-02-08] MEDS: CARVEDILOL 6.25 MG TAB PO SCH ×2 (09:58→20:10)
[2018-02-08] MEDS: PANTOPRAZOLE SOD 40 MG DELAYED RELEASE TAB PO SCH (09:58)
[2018-02-08] MEDS: hydrALAZINE HCL 50 MG TAB PO SCH ×2 (09:58→20:11)
[2018-02-08] MEDS: SODIUM CHLORIDE 0.9% FLUSH 10 ML FLUSH IV FLUSH SCH ×2 (09:59→20:11)
--- NOTE | 2018-02-08 12:55 | HHI.PR ---
Subjective Remarks Follow-up sepsis, bacteremia and influenza. Patient seen and examined. Lying in bed comfortably in no apparent distress, denies any acute events overnight. Still in [place] waiting for transfer to [place] to have PARIS done for evaluation. Vital signs are stable. Afebrile. Labs today unremarkable. Objective Vitals Vital Signs Date Time Temp Pulse Resp B/P (MAP) Pulse Ox O2 Delivery O2 Flow Rate FiO2 02/08/18 08:00 97.0 80 18 140/60 (86) 95 02/08/18 00:00 98.7 80 20 142/63 (89) 94 02/07/18 20:00 97.7 86 20 156/70 (98) 94 02/07/18 16:45 97.8 83 16 145/65 (91) 94 I/O 02/07/18 02/07/18 02/07/18 02/08/18 02/08/18 02/08/18 07:00 15:00 23:00 07:00 15:00 23:00 Intake Total 667 ml 252 ml 1220 ml 420 ml Output Total 1200 ml 350 ml 350 ml 550 ml Balance -533 ml -98 ml 870 ml -130 ml Intake Oral 1220 ml 420 ml IV Total 667 ml 252 ml Output Urine Total 1200 ml 350 ml 350 ml 550 ml # Voids 3 # Bowel Movements 2 5 2 Result Diagram: 02/08/18 0600 02/08/18 0600 Imaging Last Impressions Chest X-Ray 02/07/18 0000 Signed Impressions: Service Date/Time: Wednesday, February 07, 2018 13:17 - CONCLUSION: No overt congestive failure. Mundo Weston MD FACR Abdomen/Pelvis CT 02/01/182128 Signed Impressions: Service Date/Time: Thursday, February 01, 2018 23:05 - CONCLUSION: 1. No acute abnormality to explain the patient's pain. 2. Cholelithiasis. Andre Valladares Jr., MD Objective Remarks GENERAL: Well-developed, well-nourished patient in [facility]. SKIN: Warm and dry. No rash. HEAD: Normocephalic. Atraumatic. EYES: Pupils equal and round. No scleral icterus. No injection or drainage. ENT: No nasal bleeding or discharge. Mucous membranes pink and moist. NECK: Supple. Trachea midline. CARDIOVASCULAR: Regular rate and rhythm. S1, S2 noted. RESPIRATORY: No accessory muscle use. Clear to auscultation. Breath sounds equal bilaterally. GASTROINTESTINAL: Abdomen soft, non-tender, nondistended. Normoactive bowel sounds x4. MUSCULOSKELETAL: No obvious deformities. Extremities without clubbing, cyanosis , or edema. NEUROLOGICAL: Awake and alert. No obvious cranial nerve deficits. Motor grossly within normal limits. 5/5 muscle strength in bilateral upper and lower extremities. Normal speech. PSYCHIATRIC: Appropriate mood and affect; insight and judgment normal. A/P Problem List: (1) SIRS (systemic inflammatory response syndrome) ICD Code: R65.10 - Systemic inflammatory response syndrome (SIRS) of non- infectious origin without acute organ dysfunction Status: Acute (2) UTI (urinary tract infection) ICD Code: N39.0 - Urinary tract infection, site not specified Status: Acute (3) Flu ICD Code: J11.1 - Influenza due to unidentified influenza virus with other respiratory manifestations (4) Gram-positive bacteremia ICD Code: R78.81 - Bacteremia (5) Acute kidney injury superimposed on chronic kidney disease ICD Code: S37.009A - Unspecified injury of unspecified kidney, initial encounter; N18.9 - Chronic kidney disease, unspecified Status: Acute (6) Sepsis ICD Code: A41.9 - Sepsis, unspecified organism Status: Acute Assessment and Plan Sepsis Patient originally presented with febrile illness, tachycardia, abnormal urinalysis, influenza A infection Completed Tamiflu for total of 5 days. Blood culture followed in did become positive with MRSA Chest x-ray did not indicate any acute abnormality Urine culture was unremarkable with 10-50,000 colonies of mixed konstantin MRSA bacteremia Patient high risk with known history of bovine aortic valve replacement [address] the abdomen and pelvis did not indicate any acute source of infection/ chest x-ray does not indicate any abnormality or etiology 02/01/18, 2/4 blood cultures positive for MRSA 02/03/18, 1/4 blood cultures positive with MRSA 02/06/18, follow-up blood cultures no growth to date. Patient currently on vancomycin, managed by pharmacy Infectious disease consulted and following patient they did recommend echocardiogram, recommended PARIS. Echocardiogram was performed and indicates ejection fraction 60-65%, trace of tricuspid valve regurg, aortic valve not well visualized. Cardiology consulted for PARIS Transfer order placed 02/05/18 to [facility] for [place], awaiting bed placement. Acute renal failure superimposed on chronic kidney disease stage III, improving Discontinue IV fluids Renal functions continues to improve Avoid nephrotoxins Anemia Hemoglobin 9.9 today. Hemoccult stool negative. Continue monitor and transfuse if hemoglobin below 8.0 Iron studies obtained, iron 30, TIBC 192, percent saturation 15.6, ferritin 200. Diabetes type 2, controlled with diet at this time Continue to Hold oral hypoglycemic agent secondary to acute renal failure Continue diabetic diet Discontinue Accu-Cheks with sliding scale insulin. Patient is not required any insulin during hospitalization since 02/02/17 History of hypertension, aortic valve replacement, coronary artery disease, hyperlipidemia Home medications have been continued Blood pressure stable Patient anticoagulated with Eliquis DVT prevention Patient is on Eliquis Discharge Planning Discharge disposition, length of stay unable to determine at this time.. Patient will require PARIS, patient will need to have negative follow-up blood cultures. If PARIS is positive then we'll also need cardiothoracic surgeon consultation Nataly Dunn Feb 08, 2018 12:55
[2018-02-08] MEDS: ATORVASTATIN 40 MG TAB PO SCH (20:10)
[2018-02-08] MEDS: MAGNESIUM SULFAT 1 GM PREMIX 100 ML x2 bags IV SCH ×2 (20:29→21:40)
[2018-02-08] MEDS: POLYSACCHARIDE IRON COMPLEX 150 MG CAP PO SCH (22:10)
[2018-02-09] VITALS: BP 141/65; PULSE 82; RESP 20; TEMP 98.7; O2SAT 90
[2018-02-09 03:53] VITALS: BP 155/67; PULSE 82; RESP 20; TEMP 98.5; O2SAT 93
[2018-02-09] MEDS ORDERED: SODIUM CHLORID 0.9% 500 ML IV PRN (06:15)
[2018-02-09] MEDS ORDERED: LACTATED RINGER'S 1000 ML IV PRN (06:15)
[2018-02-09] MEDS ORDERED: CHLORHEXIDINE GLUCONATE 2 % 1 PACK (2 CLOTHS) TOPICAL PRN (06:15)
[2018-02-09] MEDS: ISOSORBIDE MONONITRATE 30 MG CR TAB (IMDUR) PO SCH (06:25)
[2018-02-09 07:23] LABS: CREATININE 1.25 MG/DL (0.60-1.30); MAGNESIUM 1.9 MG/DL (1.5-2.5)
[2018-02-09 08:02] VITALS: BP 155/70; PULSE 81; RESP 22; TEMP 98.1; O2SAT 90
--- NOTE | 2018-02-09 09:07 | CF ---
cc: Deb Faulkner MD, Don Makary, Wafik F MD DATE: PROCEDURE: Transesophageal echocardiogram. INDICATION: Prosthetic aortic valve, rule out endocarditis. After obtaining informed consent, the transesophageal echocardiogram probe was advanced without difficulty with the help of MAC anesthesia. Multiple images obtained in multiple planes revealing the following: Left ventricle size is normal with mild left ventricular hypertrophy, adequate motion, preserved systolic function, ejection fraction visual estimates around 60% to 65%. Left atrial size is mildly dilated. Right atrial size mildly dilated. Right ventricular size appears to be in the upper limit of normal with preserved systolic function. The mitral and tricuspid valve leaflets open adequately and appear morphologically within normal range. There is no evidence of endocarditis. Pulmonic valve was poorly visualized. There is no gross evidence of endocarditis. The prosthetic aortic valve appears to open adequately, and there is no vegetation seen. There is a trace central AI noted. The valve appears well seated and with adequate opening. No clots seen. No shunts noted. Minimal atherosclerotic disease of the aortic arch and descending aorta. CONCLUSION: 1. Mild left ventricular hypertrophy with normal systolic function. 2. Mild mitral regurgitation, trace aortic insufficiency and mild tricuspid regurgitation by color flow. 3. No evidence of endocarditis. 4. ALONZO 3 Gutierrez valve well seated with adequate opening and no paravalvular leaks. 5. No vegetation seen. 6. No shunts or clots. 7. Mild atherosclerotic calcified disease of the aortic arch and descending aorta. MD ANNETTE Patel/TAN , 08:29 AM , 09:06 AM
[2018-02-09] MEDS: POLYSACCHARIDE IRON COMPLEX 150 MG CAP PO SCH ×2 (09:53→21:16)
[2018-02-09] MEDS: CARVEDILOL 6.25 MG TAB PO SCH ×2 (09:53→21:16)
[2018-02-09] MEDS: APIXABAN 5 MG TABLET PO SCH ×2 (09:53→21:16)
[2018-02-09] MEDS: hydrALAZINE HCL 50 MG TAB PO SCH ×2 (09:53→21:15)
[2018-02-09] MEDS: PANTOPRAZOLE SOD 40 MG DELAYED RELEASE TAB PO SCH (09:53)
[2018-02-09] MEDS: DOCUSATE SODIUM 50 MG/SENNA 8.6 MG TAB PO SCH ×2 (09:53→21:00)
[2018-02-09] MEDS: SODIUM CHLORIDE 0.9% FLUSH 10 ML FLUSH IV FLUSH SCH ×2 (09:54→21:15)
[2018-02-09 12:02] VITALS: BP 102/52; PULSE 98; RESP 22; TEMP 98.6; O2SAT 93
[2018-02-09] MEDS ORDERED: PHARMACY ORDERED LAB ONE (13:45)
[2018-02-09 14:37] LABS: INTERNATIONAL NORMALIZED RATIO 1.2 RATIO; PROTHROMBIN TIME - PATIENT 11.8 SEC (9.8-11.6)
[2018-02-09] MEDS: VANCOMYCIN INJ 1,250 MG in SODIUM CHLOR 0.9% 250 ML INJ 250 ML IV SCH (15:51)
[2018-02-09 16:02] VITALS: BP 120/62; PULSE 90; RESP 22; TEMP 98.7; O2SAT 93
--- NOTE | 2018-02-09 17:40 | HHI.IDPN ---
Note Infectious Disease Note Patient feels okay. PARIS shows no vegetation on the aortic valve. He is afebrile. Repeat blood culture negative for 48 hours. He has been n.p.o. for the PARIS. He now wants to eat and is upset about not being able to eat yet. No chills or nausea or vomiting or shortness of breath. Blood culture on 02/01 has MRSA in both sets. Blood culture on 02/03 has MRSA in 1 of four bottles. 87-year-old white male who presented to the Emergency Department with fever and chills. The patient also was noted to have generalized weakness and nausea. He was started on ciprofloxacin by his primary care physician when he presented with urinary tract symptoms. He reportedly was having some blood in the urine and he tried to get an appointment with his urologist, but could not do so and therefore he saw his primary care physician who put him on the ciprofloxacin. After taking 2 doses, the patient came to the Emergency Department for evaluation. The patient reports that he has had occasional chills for the past 2 weeks. Temperature fay to 104 degrees on 02/02/2018 and has gradually decreased. The patient states that his last procedure performed on him was a cystoscopy by his urologist 2 months ago. PAST MEDICAL HISTORY: Coronary artery disease, benign prostatic hypertrophy, diabetes mellitus type 2, osteoarthritis, peripheral vascular disease, history of carotid endarterectomy, history of coronary bypass graft surgery, hypertension, history of bovine aortic heart valve replacement 2 years ago, TURP, bilateral knee replacements. ALLERGIES: 1. SULFA. 2. IODINE. 3. POTASSIUM IODIDE. 4. POVIDONE IODINE. 5. SODIUM IODIDE. MEDICATIONS: Current Medications Medications (Trade) Dose Ordered Sig/Zenobia Route PRN Reason Start Time Stop Time Status Last Admin Dose Admin Sodium Chloride (NS Flush) 2 ml UNSCH PRN IV FLUSH FLUSH AFTER USING IV ACCESS 02/02/18 01:15 Sodium Chloride (NS Flush) 2 ml BID IV FLUSH 02/02/18 09:00 02/09/18 09:54 Naloxone HCl (Narcan Inj) 0.4 mg UNSCH PRN IV PUSH SEE LABEL COMMENTS 02/02/18 01:15 Acetaminophen (Tylenol) 650 mg Q4H PRN PO FEVER, neck pain 02/02/18 04:00 02/06/18 10:44 Apixaban (Eliquis) 5 mg BID PO 02/02/18 09:00 02/09/18 09:53 Atorvastatin Calcium (Lipitor) 80 mg HS PO 02/02/18 21:00 02/08/18 20:10 Carvedilol (Coreg) 6.25 mg BID PO 02/02/18 09:00 02/09/18 09:53 Hydralazine HCl (Apresoline) 100 mg BID PO 02/02/18 09:00 02/09/18 09:53 Isosorbide Mononitrate (Imdur) 30 mg DAILY@0700 PO 02/02/18 09:00 02/09/18 06:25 Pantoprazole Sodium (Protonix) 40 mg DAILY PO 02/02/18 09:00 02/09/18 09:53 Ondansetron HCl (Zofran Inj) 4 mg Q6HR PRN IV PUSH NAUSEA OR VOMITING 02/02/18 12:00 02/02/18 12:13 Pharmacy Profile Note 0 ml @ 0 mls/hr UNSCH OTHER 02/03/18 09:30 Senna/Docusate Sodium (Jessica-Colace) 1 tab BID PO 02/06/18 09:00 02/09/18 09:53 Vancomycin HCl 1250 mg/Sodium Chloride 262.5 ml @ 250 mls/hr Q18H IV 02/07/18 08:00 02/09/18 15:51 Polysaccharide Iron Complex (Nu-Iron) 150 mg Q12HR PO 02/08/18 21:00 02/09/18 09:53 Lactated Ringer's 1,000 ml @ 30 mls/hr Q24H PRN IV SEE LABEL COMMENTS 02/09/18 06:15 02/12/18 06:14 Sodium Chloride 500 ml @ 30 mls/hr [id number] PRN IV SEE LABEL COMMENTS 02/09/18 06:15 02/12/18 06:14 Chlorhexidine Gluconate (Chlorhexidine 2% Cloth) 3 pack RECREATION THERAPY DIRECTOR PRN TOPICAL SEE LABEL COMMENTS 02/09/18 06:15 02/12/18 06:14 Miscellaneous Information SPECIFIC LAB TO BE SHAME[facility]... ONCE ONCE .XX 02/10/18 07:45 02/10/18 07:46 OBJECTIVE: Vital Signs Date Time Temp Pulse Resp B/P (MAP) Pulse Ox O2 Delivery O2 Flow Rate FiO2 3/21/18 12:02 98.6 98 22 102/52 (69) 93 02/09/18 09:50 Nasal Cannula 1.00 02/09/18 08:02 98.1 81 22 155/70 (98) 90 02/09/18 03:53 98.5 82 20 155/67 (96) 93 02/09/18 03:53 Nasal Cannula 1.00 02/09/18 00:05 94 Nasal Cannula 1.00 02/09/18 00:00 98.7 82 20 141/65 (90) 90 02/09/18 00:00 Room Air 02/08/18 20:00 Room Air 02/08/18 20:00 98.2 79 18 182/79 (113) 93 Laboratory Tests Test 02/08/18 06:00 White Blood Count 7.6 TH/MM3 Red Blood Count 3.30 MIL/MM3 Hemoglobin 9.9 GM/DL Hematocrit 29.3 % Mean Corpuscular Volume 88.8 FL Mean Corpuscular Hemoglobin 30.1 PG Mean Corpuscular Hemoglobin Concent 33.9 % Red Cell Distribution Width 15.4 % Platelet Count 151 TH/MM3 Mean Platelet Volume 7.7 FL Neutrophils (%) (Auto) 74.8 % Lymphocytes (%) (Auto) 15.3 % Monocytes (%) (Auto) 6.9 % Eosinophils (%) (Auto) 2.8 % Basophils (%) (Auto) 0.2 % Neutrophils # (Auto) 5.7 TH/MM3 Lymphocytes # (Auto) 1.2 TH/MM3 Monocytes # (Auto) 0.5 TH/MM3 Eosinophils # (Auto) 0.2 TH/MM3 Basophils # (Auto) 0.0 TH/MM3 CBC Comment DIFF FINAL Differential Comment Laboratory Tests Test 02/08/18 06:00 02/09/18 05:55 Blood Urea Nitrogen 21 MG/DL Creatinine 1.20 MG/DL 1.25 MG/DL Random Glucose 127 MG/DL Calcium Level 8.1 MG/DL Magnesium Level 1.5 MG/DL 1.9 MG/DL Sodium Level 138 MEQ/L Potassium Level 4.0 MEQ/L Chloride Level 104 MEQ/L Carbon Dioxide Level 26.8 MEQ/L Anion Gap 7 MEQ/L Estimat Glomerular Filtration Rate 57 ML/MIN 55 ML/MIN Microbiology Date/Time Source Procedure Growth Status 02/07/18 14:05 Stool Stool Stool Occult Blood (CLIFF) - Final HEMOCCULT NEGATIVE Complete 02/07/18 13:55 Nasal Aspirate Influenza Types A,B Antigen (CLIFF) - Final NEGATIVE FOR FLU A AND B ANTIGEN.... Complete Microbiology Date/Time Source Procedure Growth Status 02/03/18 11:30 Blood Peripheral Aerobic Blood Culture - Preliminary NO GROWTH IN 1 DAY Resulted 02/03/18 11:30 Blood Peripheral Anaerobic Blood Culture - Preliminary NO GROWTH IN 1 DAY Resulted 02/03/18 11:20 Blood Peripheral Aerobic Blood Culture - Preliminary NO GROWTH IN 1 DAY Resulted 02/03/18 11:20 Blood Peripheral Anaerobic Blood Culture - Preliminary NO GROWTH IN 1 DAY Resulted 02/01/18 22:20 Blood Peripheral Aerobic Blood Culture - Preliminary S. Aureus Mrsa Resulted 02/01/18 22:20 Blood Peripheral Anaerobic Blood Culture - Preliminary NO GROWTH IN 3 DAYS Resulted 02/01/18 22:15 Blood Peripheral Aerobic Blood Culture - Preliminary S. Aureus Mrsa Resulted 02/01/18 22:15 Blood Peripheral Anaerobic Blood Culture - Preliminary NO GROWTH IN 3 DAYS Resulted 02/02/18 01:05 Nasal Washing Influenza Types A,B Antigen (CLIFF) - Final Positive For Flu A Antigen Complete 02/02/18 00:22 Urine Catheterized Urine Urine Culture - Final 10-50,000 CFU/ML MIXED GRAM POSITIVE ... Complete IMAGING: Chest X-Ray 02/01/182128 Signed Impressions: Service Date/Time: Thursday, February 01, 2018 21:44 - CONCLUSION: Trace bibasilar atelectasis. Alex Arellano MD Abdomen/Pelvis CT 02/01/182128 Signed Impressions: Service Date/Time: Thursday, February 01, 2018 23:05 - CONCLUSION: 1. No acute abnormality to explain the patient's pain. 2. Cholelithiasis. Andre Valladares Jr., MD PHYSICAL EXAMINATION: GENERAL: No acute distress. Awake and alert and oriented. HEENT: Extraocular movements grossly intact. Pupils reactive to light. No icterus. Oropharynx: Moist mucosa. NECK: Supple, no adenopathy. Adenopathy. LUNGS: Decreased breath sounds. Clear. HEART: Regular S1, S2 with a II/ systolic murmur at the left upper sternal border. ABDOMEN: Bowel sounds present, soft, no tenderness. EXTREMITIES: No clubbing, cyanosis or edema. SKIN: No rash. NEUROLOGIC: No gross focal findings. PSYCHIATRIC: Calm and cooperative. IMPRESSION: 1. Bacteremia due to methicillin-resistant Staphylococcus aureus in the patient who has had valve replacement with a bovine valve. Likely source is urinary. [place] unremarkable for vegetation of the aortic valve. Patient has history of aortic valve replacement. 2. Influenza A. Treated. 3. Acute kidney disease on top of previous chronic renal disease. Improving. RECOMMENDATIONS: 1. Continue the vancomycin. 2. Follow blood cultures until 72 hours. If the blood cultures are negative at 72 hours plans will be made for the patient to continue IV vancomycin at home until February 17, 2018 I will order PICC line and right antibiotics on infusion form. Ryan Cm MD Feb 09, 2018 17:40
--- NOTE | 2018-02-09 17:49 | HHI.FF ---
Infusion Therapy Location of Infusion Therapy: Home Health Care IV Infusion Order Patient Information Patient Weight 103.3 kg Diagnosis: (1) Sepsis Diagnosis MRSA Coded Allergies: Sulfa (Sulfonamide Antibiotics) (Verified Allergy, Unknown, UNKNOWN, ) iodine (Verified Allergy, Unknown, 02/01/18) potassium iodide (Verified Allergy, Unknown, 02/01/18) povidone-iodine (Verified Allergy, Unknown, 02/01/18) sodium iodide (Verified Allergy, Unknown, 02/01/18) sodium iodide (Verified Allergy, Unknown, 02/01/18) Administer Medication Vancomycin 1400mg IV [id number] Treatment: Feb 17, 2018 Additional Information Venous access: PICC Line Additional Instructions [x] Peripheral flush and dressing changes per protocol [x] Implanted port and central paint line supervisor: * Implanted port: 10 ml Normal Saline followed by 5 ml Heparin 100 units/ml Heparin flush after each use and monthly to maintain. [] May leave port accessed during therapy. [] May leave peripheral site accessed for duration of therapy. [x] If patient has SOB or respiratory distress, check oxygen saturation. If less than 90% or clinical signs of respiratory distress, administer oxygen at 2 L/min. via nasal cannula and notify physician. [x] Anaphylaxis/Reaction orders: * Stop infusion. * Keep IV line open with saline flush. * Notify physician. * Monitor vital signs every 15 minutes until symptoms resolve. * Check Oxygen saturation; Oxygen at 2 L/min. via nasal cannula if less than 90% or clinical signs of respiratory distress. * Administer diphenhydramine (Benadryl) 25 mg IV STAT, (unless patient has received as pre-med). May repeat once, if necessary. * Solu-Cortef 250 mg IVP over 30-60 seconds, use 100 mg vials for each dissolution. * Epinephrine (1mg/1 ml) 0.3 mg subcutaneously or IVP now with any signs of respiratory distress. * Check with physician for new additional pre-med orders if patient is re- challenged or re-treated. [x] May remove PICC line when treatment complete, after confirming with Physician. [x] If the patient is admitted to the hospital, the ED, or transferred via [facility] , complete transfer form including medication reconciliation order sheet. Laboratory Tests Additional Information BMP every 3 days while on vancomycin. Call with vancomycin level greater than 20 or creatinine greater than 2.0 Hold vancomycin if creatinine greater than 2.[address] Cm . Fax number [phone]. Ryan Cm MD Feb 09, 2018 17:49
--- NOTE | 2018-02-09 19:09 | HHI.PR ---
Subjective Remarks Patient denies abdominal pain, nausea, vomiting Denies cp/sob afebrile Objective Vitals Vital Signs Date Time Temp Pulse Resp B/P (MAP) Pulse Ox O2 Delivery O2 Flow Rate FiO2 02/09/18 16:02 98.7 90 22 120/62 (81) 93 02/09/18 12:02 98.6 98 22 102/52 (69) 93 02/09/18 09:50 Nasal Cannula 1.00 02/09/18 08:02 98.1 81 22 155/70 (98) 90 02/09/18 03:53 98.5 82 20 155/67 (96) 93 02/09/18 03:53 Nasal Cannula 1.00 02/09/18 00:05 94 Nasal Cannula 1.00 02/09/18 00:00 98.7 82 20 141/65 (90) 90 02/09/18 00:00 Room Air 02/08/18 20:00 Room Air 02/08/18 20:00 98.2 79 18 182/79 (113) 93 I/O 02/08/18 02/08/18 02/08/18 02/09/18 02/09/18 02/09/18 07:00 15:00 23:00 07:00 15:00 23:00 Intake Total 420 ml 470 ml 0 ml Output Total 550 ml 200 ml 400 ml 1200 ml Balance -130 ml 270 ml -400 ml -1200 ml Intake Oral 420 ml 0 ml IV Total 470 ml Output Urine Total 550 ml 200 ml 400 ml 1200 ml # Voids 4 # Bowel Movements 2 1 1 Result Diagram: 02/08/18 0600 02/09/18 0555 Imaging Last Impressions Chest X-Ray 02/07/18 0000 Signed Impressions: Service Date/Time: Wednesday, February 07, 2018 13:17 - CONCLUSION: No overt congestive failure. Mundo Weston MD FACR Abdomen/Pelvis CT 02/01/182128 Signed Impressions: Service Date/Time: Thursday, February 01, 2018 23:05 - CONCLUSION: 1. No acute abnormality to explain the patient's pain. 2. Cholelithiasis. Andre Valladares Jr., MD Objective Remarks AAOx3 NAD S1S2 RRR clear lungs BL abdomen soft Medications and IVs Current Medications Medications (Trade) Dose Ordered Sig/Zenobia Route Start Time Stop Time Status Last Admin (NS Flush) 2 ml UNSCH PRN IV FLUSH 02/02/18 01:15 (NS Flush) 2 ml BID IV FLUSH 02/02/18 09:00 02/10/18 08:59 (Narcan Inj) 0.4 mg UNSCH PRN IV PUSH 02/02/18 01:15 (Tylenol) 650 mg Q4H PRN PO 02/02/18 04:00 02/06/18 10:44 (Eliquis) 5 mg BID PO 02/02/18 09:00 02/10/18 08:58 (Lipitor) 80 mg HS PO 02/02/18 21:00 02/09/18 21:16 (Coreg) 6.25 mg BID PO 02/02/18 09:00 02/10/18 08:58 (Apresoline) 100 mg BID PO 02/02/18 09:00 02/10/18 08:57 (Imdur) 30 mg DAILY@0700 PO 02/02/18 09:00 02/10/18 06:31 (Protonix) 40 mg DAILY PO 02/02/18 09:00 02/10/18 08:57 (Zofran Inj) 4 mg Q6HR PRN IV PUSH 02/02/18 12:00 02/02/18 12:13 Pharmacy Profile Note 0 ml @ 0 mls/hr UNSCH OTHER 02/03/18 09:30 (Jessica-Colace) 1 tab BID PO 02/06/18 09:00 02/10/18 08:58 Vancomycin HCl 1250 mg/Sodium Chloride 262.5 ml @ 250 mls/hr Q18H IV 02/07/18 08:00 02/10/18 08:58 (Nu-Iron) 150 mg Q12HR PO 02/08/18 21:00 02/10/18 08:58 Lactated Ringer's 1,000 ml @ 30 mls/hr Q24H PRN IV 02/09/18 06:15 02/12/18 06:14 Sodium Chloride 500 ml @ 30 mls/hr [id number] PRN IV 02/09/18 06:15 02/12/18 06:14 (Chlorhexidine 2% Cloth) 3 pack COMBUSTION ANALYST PRN TOPICAL 02/09/18 06:15 02/12/18 06:14 A/P Problem List: (1) SIRS (systemic inflammatory response syndrome) ICD Code: R65.10 - Systemic inflammatory response syndrome (SIRS) of non- infectious origin without acute organ dysfunction Status: Acute (2) UTI (urinary tract infection) ICD Code: N39.0 - Urinary tract infection, site not specified Status: Acute (3) Flu ICD Code: J11.1 - Influenza due to unidentified influenza virus with other respiratory manifestations (4) Gram-positive bacteremia ICD Code: R78.81 - Bacteremia (5) Acute kidney injury superimposed on chronic kidney disease ICD Code: S37.009A - Unspecified injury of unspecified kidney, initial encounter; N18.9 - Chronic kidney disease, unspecified Status: Acute (6) Sepsis ICD Code: A41.9 - Sepsis, unspecified organism Status: Acute Assessment and Plan Sepsis Patient originally presented with febrile illness, tachycardia, abnormal urinalysis, influenza A infection Completed Tamiflu for total of 5 days. Blood culture followed in did become positive with MRSA Chest x-ray did not indicate any acute abnormality Urine culture was unremarkable with 10-50,000 colonies of mixed konstantin 02/09 Sepsis clinically resolved, with resolved fevers, tachycardia. MRSA bacteremia Patient high risk with known history of bovine aortic valve replacement [address] the abdomen and pelvis did not indicate any acute source of infection/ chest x-ray does not indicate any abnormality or etiology 02/01/18, 2/4 blood cultures positive for MRSA 02/03/18, 1/4 blood cultures positive with MRSA 02/06/18, follow-up blood cultures no growth to date. Patient currently on vancomycin, managed by pharmacy Infectious disease consulted and following patient they did recommend echocardiogram, recommended CHRISTOPHER. Echocardiogram was performed and indicates ejection fraction 60-65%, trace of tricuspid valve regurg, aortic valve not well visualized. Cardiology consulted for CHRISTOPHER 02/09 Christopher negative. Await ID clearance. Acute renal failure superimposed on chronic kidney disease stage III, improving SP IV fluids Renal function stable Avoid nephrotoxins Anemia Hemoglobin 9.9 today. Hemoccult stool negative. Continue monitor and transfuse if hemoglobin below 8.0 Iron studies obtained, iron 30, TIBC 192, percent saturation 15.6, ferritin 200. Diabetes type 2, controlled with diet at this time Continue to Hold oral hypoglycemic agent secondary to acute renal failure Continue diabetic diet Discontinue Accu-Cheks with sliding scale insulin. Patient is not required any insulin during hospitalization since 02/02/17 History of hypertension, aortic valve replacement, coronary artery disease, hyperlipidemia Home medications have been continued Blood pressure stable Patient anticoagulated with Eliquis DVT prevention Patient is on Eliquis Discharge Planning Possible Dc in am. Pending ID clearance. Problem Qualifiers (1) UTI (urinary tract infection): Qualified Codes: N39.0 - Urinary tract infection, site not specified; R31.9 - Hematuria, unspecified (2) Sepsis: Qualified Codes: A41.9 - Sepsis, unspecified organism Mik Elliott MD Feb 09, 2018 19:09
[2018-02-09 20:00] VITALS: BP 128/67; PULSE 68; RESP 19; TEMP 98; TEMP 98.1; O2SAT 96
[2018-02-09] MEDS: ATORVASTATIN 40 MG TAB PO SCH (21:16)
[2018-02-10] VITALS: BP 125/80; PULSE 60; RESP 19; TEMP 97.6; O2SAT 95
[2018-02-10 04:00] VITALS: BP 147/67; PULSE 68; RESP 17; TEMP 98; O2SAT 94
[2018-02-10 06:00] VITALS: BP 147/67; PULSE 68; RESP 17; TEMP 98.3; O2SAT 94
[2018-02-10] MEDS: ISOSORBIDE MONONITRATE 30 MG CR TAB (IMDUR) PO SCH (06:31)
[2018-02-10 07:17] LABS: CREATININE 1.38 MG/DL (0.60-1.30)
[2018-02-10] MEDS ORDERED: PHARMACY ORDERED LAB ONE (07:45)
[2018-02-10 08:00] VITALS: BP 140/68; PULSE 76; RESP 18; TEMP 98.4; O2SAT 96
[2018-02-10] MEDS: PANTOPRAZOLE SOD 40 MG DELAYED RELEASE TAB PO SCH (08:57)
[2018-02-10] MEDS: hydrALAZINE HCL 50 MG TAB PO SCH (08:57)
[2018-02-10] MEDS: VANCOMYCIN INJ 1,250 MG in SODIUM CHLOR 0.9% 250 ML INJ 250 ML IV SCH (08:58)
[2018-02-10] MEDS: POLYSACCHARIDE IRON COMPLEX 150 MG CAP PO SCH (08:58)
[2018-02-10] MEDS: APIXABAN 5 MG TABLET PO SCH (08:58)
[2018-02-10] MEDS: CARVEDILOL 6.25 MG TAB PO SCH (08:58)
[2018-02-10] MEDS: DOCUSATE SODIUM 50 MG/SENNA 8.6 MG TAB PO SCH (08:58)
[2018-02-10] MEDS: SODIUM CHLORIDE 0.9% FLUSH 10 ML FLUSH IV FLUSH SCH (08:59)
[2018-02-10 11:34] VITALS: BP 151/67; PULSE 80; RESP 18; TEMP 97.9; O2SAT 59
--- NOTE | 2018-02-10 13:52 | HHI.DS ---
Discharge Summary Admission Date Feb 02, 2018 at 09:31 Discharge Date: Feb 10, 2018 Admitting Diagnosis sirs; uti (1) SIRS (systemic inflammatory response syndrome) ICD Code: R65.10 - Systemic inflammatory response syndrome (SIRS) of non- infectious origin without acute organ dysfunction Status: Acute (2) UTI (urinary tract infection) ICD Code: N39.0 - Urinary tract infection, site not specified Status: Acute (3) Flu ICD Code: J11.1 - Influenza due to unidentified influenza virus with other respiratory manifestations (4) Gram-positive bacteremia ICD Code: R78.81 - Bacteremia (5) Acute kidney injury superimposed on chronic kidney disease ICD Code: S37.009A - Unspecified injury of unspecified kidney, initial encounter; N18.9 - Chronic kidney disease, unspecified Status: Acute (6) Sepsis ICD Code: A41.9 - Sepsis, unspecified organism Status: Acute Procedures none Brief History - From Admission 87-year-old man with a history of BPH resented to the ED for evaluation of 1 week history of chills, urinary retention and dysuria with gross hematuria , and nausea with decreased intake 1 day. Patient states, he has call a urologist for gross hematuria and urinary retention for which his urologist was aware of previously, however yesterday with worsening symptoms of dysuria and urinary retention he was advised to see his PCP as his urologist was out of town. During his encounter with his PCP , patient reports symptoms of chills along with dysuria for which he was started on Cipro for presumed UTI and advised to seek medical attention at the nearest ED for worsening of symptoms. when patient presented to the ED he endorsed nausea as well as decrease appetite intake x 1 days along with abdominal pain. His vitals in the ED on admission were Temp 101, HR 104, BP 147/67 and 94%RA. Abdominal CT scan was unremarkable and chest x-ray did not reveal any pulmonary infiltrates. He has flu a antigen positive as well as abnormal UA. CBC/BMP: 02/08/18 0600 02/10/18 0638 Significant Findings Laboratory Tests Test 02/08/18 06:00 02/09/18 05:55 02/09/18 12:43 02/10/18 06:38 Red Blood Count 3.30 MIL/MM3 (4.50-5.90) Hemoglobin 9.9 GM/DL (13.0-17.0) Hematocrit 29.3 % (39.0-51.0) Neutrophils (%) (Auto) 74.8 % (16.0-70.0) Blood Urea Nitrogen 21 MG/DL (7-18) Random Glucose 127 MG/DL (74-106) Calcium Level 8.1 MG/DL (8.5-10.1) Estimat Glomerular Filtration Rate 57 ML/MIN (>89) 55 ML/MIN (>89) 49 ML/MIN (>89) Prothrombin Time 11.8 SEC (9.8-11.6) Creatinine 1.38 MG/DL (0.60-1.30) Vancomycin Level Trough 27.3 MCG/ML (5.0-10.0) Imaging Last Impressions Chest X-Ray 02/07/18 0000 Signed Impressions: Service Date/Time: Wednesday, February 07, 2018 13:17 - CONCLUSION: No overt congestive failure. Mundo Weston MD FACR Abdomen/Pelvis CT 02/01/182128 Signed Impressions: Service Date/Time: Thursday, February 01, 2018 23:05 - CONCLUSION: 1. No acute abnormality to explain the patient's pain. 2. Cholelithiasis. Andre Valladares Jr., MD PE at Discharge AAOx3 NAD S1S2 RRR clear lungs BL abdomen soft Pt Condition on Discharge: Stable Discharge Disposition: Disch w/ Home Health Serv Discharge Time: > 30 minutes Discharge Instructions DIET: Follow Instructions for: Diabetic Diet Activities you can perform: Regular-No Restrictions, See Additionl Instruction Other Activity Instructions: as per PT instructions OOB with assistance only use cane and rolling walker to ambulate Follow up Referrals: PCP Follow-up - 2 Weeks Continued Medications: Apixaban (Eliquis) 5 Mg Tab 5 MG PO BID for Blood Clot Prevention, #60 TAB 0 Refills Aspirin (Aspirin) 81 Mg Chew 81 MG CHEW ONCE, #1 TAB 0 Refills Atorvastatin (Atorvastatin) 80 Mg Tab 80 MG PO HS for Cholesterol Management, #30 TAB 0 Refills Carvedilol (Carvedilol) 6.25 Mg Tab 6.25 MG PO BID, #60 TAB [address] (Nexium) 40 Mg Capdr 40 MG PO DAILY, CAP 0 Refills Glipizide (Glipizide) 5 Mg Tab 5 MG PO DAILY for Blood Sugar Management, #30 TAB 0 Refills Take 30 minutes before a meal Hydralazine (Hydralazine) 100 Mg Tab 100 MG PO BID for Blood Pressure Management, TAB 0 Refills Take with meals Isosorbide Mononitrate ER (Isosorbide Mononitrate ER) 30 Mg Yvonne 30 MG PO DAILY for Prevent Chest Pain, #30 TAB 0 Refills Mik Elliott MD Feb 10, 2018 13:52
[2018-02-10] MEDS ORDERED: SODIUM CHLORIDE 0.9% FLUSH 10 ML FLUSH IV FLUSH PRN (14:30)
--- NOTE | 2018-02-10 14:52 | HHI.FF ---
Face to Face Verification Diagnosis: (1) Sepsis (2) UTI (urinary tract infection) (3) Gram-positive bacteremia (4) Flu (5) BPH (benign prostatic hyperplasia) (6) CKD (chronic kidney disease) stage 3, GFR 30-59 ml/min (7) Diabetes mellitus, type 2 (8) Acute kidney injury superimposed on chronic kidney disease Physical Therapy Order: Improve ambulation, Strength and gait training Home Health Nursing Order: Nursing assessment with vital signs IV medication administration I have seen patient Abner Barriga on 02/10/18. My clinical findings support the need for the requested home health care services because: Infection w/ risk of complications I certify that my clinical findings support that this patient is homebound because: Unsteady gait/balance Need for psychosocial assistance Mik Elliott MD Feb 10, 2018 14:52
[2018-02-11] MEDS ORDERED: SODIUM CHLORIDE 0.9% FLUSH 10 ML FLUSH IV FLUSH SCH (09:00)
== END 2018-02-10 16:30 | disposition home health service (06) | DRG 872 ==
LOC: PHED 20:30 → PHEDA 02-02 01:12 → PH3B 02-02 02:41 → OBSVTOIN 02-02 09:31 → N04A 02-08 17:19
PROVIDERS: ADMIT Hospitalist; ATTEND Hospitalist
PROC: B246ZZ4 Ultrasonography of Right and Left Heart, Transesophageal (ICD-10-PCS; principal; 2018-02-09)
DX: A41.02 Sepsis due to Methicillin resistant Staphylococcus aureus (principal); N17.9 Acute kidney failure, unspecified; E11.22 Type 2 diabetes mellitus with diabetic chronic kidney disease; I13.0 Hypertensive heart and chronic kidney disease with heart failure and stage 1 through stage 4 chronic kidney disease, or unspecified chronic kidney disease; I50.9 Heart failure, unspecified; E11.51 Type 2 diabetes mellitus with diabetic peripheral angiopathy without gangrene; N18.3 Chronic kidney disease, stage 3 (moderate); J10.1 Influenza due to other identified influenza virus with other respiratory manifestations; I25.10 Atherosclerotic heart disease of native coronary artery without angina pectoris; E78.5 Hyperlipidemia, unspecified; N40.1 Benign prostatic hyperplasia with lower urinary tract symptoms; E03.9 Hypothyroidism, unspecified; I25.2 Old myocardial infarction; R33.8 Other retention of urine; I44.4 Left anterior fascicular block; D63.1 Anemia in chronic kidney disease; M19.90 Unspecified osteoarthritis, unspecified site; Z79.01 Long term (current) use of anticoagulants; Z79.84 Long term (current) use of oral hypoglycemic drugs; Z85.828 Personal history of other malignant neoplasm of skin; Z86.73 Personal history of transient ischemic attack (TIA), and cerebral infarction without residual deficits; Z87.891 Personal history of nicotine dependence; Z88.2 Allergy status to sulfonamides; Z95.3 Presence of xenogenic heart valve; Z96.653 Presence of artificial knee joint, bilateral
CPT/HCPCS: 36569; 71045; 71046; 74176; 76937; 80048; 80053; 80202; 81001; 82272; 82550; 82565; 82607; 82728; 82746; 82948; 83010; 83540; 83550; 83605; 83615; 83690; 83735; 84155; 84484; 85025; 85044; 85610; 85730; 86403; 87040; 87086; 87186; 87205; 87804; 93005; 93306; 93312; 93320; 93325; 96361; 96365; J0696; J1815; J2405; J2543; J3370; J3475; J7030; J7040; J7050; P9612

== ENCOUNTER → 2018-02-01 | Outpatient (CLI) | payer MEDICARE, OTHER ==
[~2018-02-01] MED LIST changes: +CARV6.252 PO
[2018-02-01 11:22] LABS: HEMATOCRIT 36.7 % (39.0-51.0); HEMOGLOBIN 12.4 GM/DL (13.0-17.0); MEAN CELL VOLUME 91.2 FL (80.0-100.0); MEAN CORPUSCULAR HEMOGLOBIN 30.8 PG (27.0-34.0); MEAN CORPUSCULAR HGB CONC 33.8 % (32.0-36.0); MEAN PLATELET VOLUME 7.6 FL (7.0-11.0); PLATELET COUNT 141 TH/MM3 (150-450); RED BLOOD COUNT 4.02 MIL/MM3 (4.50-5.90); RED CELL DISTRIBUTION WIDTH 16.3 % (11.6-17.2); WHITE BLOOD COUNT 8.6 TH/MM3 (4.0-11.0)
[2018-02-01 11:36] LABS: BICARBONATE 26.7 MEQ/L (21.0-32.0); CALCIUM 7.9 MG/DL (8.5-10.1); CREATININE 1.92 MG/DL (0.60-1.30)
== END ==
LOC: PLAB 09:01
DX: I12.9 Hypertensive chronic kidney disease with stage 1 through stage 4 chronic kidney disease, or unspecified chronic kidney disease (principal); E11.22 Type 2 diabetes mellitus with diabetic chronic kidney disease; E11.65 Type 2 diabetes mellitus with hyperglycemia; N18.3 Chronic kidney disease, stage 3 (moderate); Z79.899 Other long term (current) drug therapy
CPT/HCPCS: 36415; 80048; 85027

== ENCOUNTER → 2018-03-28 | Outpatient (CLI) | payer MEDICARE, OTHER ==
[2018-03-28 13:35] LABS: HEMATOCRIT 38.1 % (39.0-51.0); HEMOGLOBIN 12.6 GM/DL (13.0-17.0); MEAN CELL VOLUME 91.9 FL (80.0-100.0); MEAN CORPUSCULAR HEMOGLOBIN 30.4 PG (27.0-34.0); MEAN CORPUSCULAR HGB CONC 33.1 % (32.0-36.0); PLATELET COUNT 118 TH/MM3 (150-450); RED BLOOD COUNT 4.15 MIL/MM3 (4.50-5.90); RED CELL DISTRIBUTION WIDTH 16.9 % (11.6-17.2); REVIEW FLAG FINAL; WHITE BLOOD COUNT 4.9 TH/MM3 (4.0-11.0)
[2018-03-28 13:44] LABS: ALBUMIN 3.7 GM/DL (3.4-5.0); ANION GAP 9 MEQ/L (5-15); AST (GOT) 23 U/L (15-37); BICARBONATE 25.2 MEQ/L (21.0-32.0); BLOOD UREA NITROGEN 32 MG/DL (7-18); CALCIUM 8.6 MG/DL (8.5-10.1); CHLORIDE 107 MEQ/L (98-107); CREATININE 1.87 MG/DL (0.60-1.30); GLOMERULAR FILTRATION RATE 34 ML/MIN (>89); GLUCOSE,FASTING 134 MG/DL (74-99); POTASSIUM 4.4 MEQ/L (3.5-5.1); SODIUM (NA) 141 MEQ/L (136-145)
[2018-03-28 13:45] LABS: ALT (GPT) 25 U/L (12-78); CHOLESTEROL 115 MG/DL (120-200)
[2018-03-28 13:48] LABS: ALKALINE PHOSPHATASE 64 U/L (45-117); CHOLESTEROL/ HDL RATIO 3.02 RATIO; LDL CHOLESTEROL 59 MG/DL (0-99); TOTAL BILIRUBIN ADULT 0.5 MG/DL (0.2-1.0); TOTAL PROTEIN 7.2 GM/DL (6.4-8.2); TRIGLYCERIDES 88 MG/DL (42-150)
[2018-03-28 13:52] LABS: CREATINE KINASE 71 U/L (39-308)
[2018-03-28 13:57] LABS: PROSTATE SPECIFIC ANTIGEN 8.73 NG/ML (0.00-4.00)
[2018-03-28 21:43] LABS: HEMOGLOBIN A1C 6.4 % (4.3-6.0); HEMOGLOBIN A1a 1.2 %; HEMOGLOBIN A1b 0.8 %; HEMOGLOBIN F 1.9 %; HEMOGLOBIN LA1C 2.2 %; HEMOGLOBIN P3 5.6 %
== END ==
LOC: PLAB 09:19
DX: E78.00 Pure hypercholesterolemia, unspecified (principal); I12.9 Hypertensive chronic kidney disease with stage 1 through stage 4 chronic kidney disease, or unspecified chronic kidney disease; E11.65 Type 2 diabetes mellitus with hyperglycemia; E11.22 Type 2 diabetes mellitus with diabetic chronic kidney disease; D63.1 Anemia in chronic kidney disease; N18.3 Chronic kidney disease, stage 3 (moderate); Z79.899 Other long term (current) drug therapy; Z12.5 Encounter for screening for malignant neoplasm of prostate
CPT/HCPCS: 36415; 80053; 80061; 82550; 83036; 85027

== ENCOUNTER → 2018-04-05 | Outpatient (CLI) | payer MEDICARE, OTHER ==
[~2018-04-05] MED LIST changes: +CARV6.252 PO; -METO25TA3 PO
[2018-04-05 14:28] LABS: BILIRUBIN, URINE NEG (NEG); BLOOD, URINE NEG (NEG); GLUCOSE,URINE 150 mg/dL (NEG); KETONE, URINE NEG (NEG); NITRITE,URINE NEG (NEG); URINE COLOR LIGHT-YELLOW (YELLW/STRAW); URINE LEUKOCYTE ESTERASE NEG (NEG)
== END ==
LOC: PLAB 09:25
DX: N39.0 Urinary tract infection, site not specified (principal); B96.89 Other specified bacterial agents as the cause of diseases classified elsewhere
CPT/HCPCS: 81001; 87077; 87086; 87186

== ENCOUNTER → 2018-04-14 | Outpatient (CLI) | payer MEDICARE, OTHER | LOC: PLAB 10:13 | DX: N39.0 Urinary tract infection, site not specified (principal) | CPT/HCPCS: 87086 ==

== ENCOUNTER → 2018-05-17 | Outpatient (CLI) | payer MEDICARE, OTHER ==
[2018-05-17 14:01] LABS: HEMATOCRIT 38.4 % (39.0-51.0); HEMOGLOBIN 12.8 GM/DL (13.0-17.0); MEAN CELL VOLUME 90.9 FL (80.0-100.0); MEAN CORPUSCULAR HEMOGLOBIN 30.3 PG (27.0-34.0); MEAN CORPUSCULAR HGB CONC 33.3 % (32.0-36.0); PLATELET COUNT 128 TH/MM3 (150-450); RED BLOOD COUNT 4.22 MIL/MM3 (4.50-5.90); RED CELL DISTRIBUTION WIDTH 15.8 % (11.6-17.2); WHITE BLOOD COUNT 5.5 TH/MM3 (4.0-11.0)
[2018-05-17 14:09] LABS: BICARBONATE 27.4 MEQ/L (21.0-32.0); CALCIUM 9.3 MG/DL (8.5-10.1); CREATININE 1.85 MG/DL (0.60-1.30)
== END ==
LOC: PLAB 11:16
DX: E11.65 Type 2 diabetes mellitus with hyperglycemia (principal); E11.22 Type 2 diabetes mellitus with diabetic chronic kidney disease; D63.1 Anemia in chronic kidney disease; N18.3 Chronic kidney disease, stage 3 (moderate)
CPT/HCPCS: 36415; 80048; 85027